=== PATIENT | female | born 2000 | race Caucasian/White ===

== ENCOUNTER 2025-02-28 13:49 | Inpatient (IN) | payer OTHER, SELFPAY ==
[2025-02-28] VITALS (11 sets, daily range): BP systolic 133–149; BP diastolic 93–107; PULSE 80–110; RESP 19–26; TEMP 36.4–36.9; O2SAT 96–100; BMI 21.7
--- NOTE | 2025-02-28 | ECG_ITS ---
Test Reason : REPEAT AFTER MED Blood Pressure : */* mmHG Vent. Rate : 89 BPM Atrial Rate : 89 BPM P-R Int : 114 ms QRS Dur : 68 ms QT Int : 402 ms P-R-T Axes : 31 44 8 degrees QTcB Int : 489 ms Normal sinus rhythm T wave abnormality, consider anterior ischemia Prolonged QT Abnormal ECG When compared with ECG of 28-Feb-2025 15:55, No significant change was found Referred By: Abby Arredondo Electronically Signed By: CORNELIA PALOMARES MD
--- NOTE | 2025-02-28 | ECG_ITS ---
Test Reason : LOW MAG Blood Pressure : */* mmHG Vent. Rate : 84 BPM Atrial Rate : 84 BPM P-R Int : 118 ms QRS Dur : 72 ms QT Int : 406 ms P-R-T Axes : 14 41 -17 degrees QTcB Int : 479 ms Normal sinus rhythm T wave abnormality, consider anterior ischemia Prolonged QT Abnormal ECG No previous ECGs available Referred By: Generic ED Physician Electronically Signed By: CORNELIA PALOMARES MD
--- NOTE | ~2025-02-28 | XR_ITS ---
CLINICAL HISTORY: Hypoxia Chest radiograph, 1 view Comparison: CT - CT ANGIO CHEST PE PROTOCOL - 03/02/25 05:53 EDT CR - XR CHEST 1V - 03/02/25 04:12 EDT Findings: The cardiomediastinal silhouette is not enlarged. Pulmonary vascularity is prominent. Bilateral airspace opacities. Slight elevation of the left hemidiaphragm. Mild blunting of the costophrenic angles. No pneumothorax. IMPRESSION: Worsened bilateral airspace disease and pulmonary vascular congestion with probable bilateral pleural effusions. This document has been electronically signed by: Chris Zamora DO on 03/04/2025 09:14:54
--- NOTE | ~2025-02-28 | XR_ITS ---
EXAMINATION: XR CHEST 1 VIEW HISTORY: Hypoxia F U COMPARISON: Comparison is made with prior examinations dated 03/04/2025. FINDINGS: A single AP portable view of the chest performed at 8:17 AM. is submitted. There are diffuse patchy airspace and groundglass opacities bilaterally which may represent pulmonary edema, diffuse pneumonia, or ARDS. There are probable tiny bilateral pleural effusions. There is no pneumothorax. The heart is normal in size. The bones are intact. XR/XR chest 1V IMPRESSION: Diffuse patchy bilateral airspace and groundglass opacities which may represent pulmonary edema, diffuse pneumonia, or ARDS. Electronically signed by: Hill Berman MD 03/06/2025 08:40 AM EDT
--- NOTE | ~2025-02-28 | US_ITS ---
EXAMINATION: US ABDOMEN LIMITED HISTORY: Transaminitis, R/O gallstones TECHNIQUE: Real-time grayscale ultrasound imaging of the gallbladder was performed and images were reviewed. COMPARISON: Correlation is made with a CT of the abdomen with contrast dated 02/28/2025. FINDINGS: No gallstones are identified. There is no wall thickening. There is a small amount of pericholecystic fluid. There is no sonographic Chao sign. The common bile duct is normal in caliber measuring 2 mm in diameter. US/US abdomen limited IMPRESSION: Small amount of pericholecystic fluid. No evidence of cholelithiasis or acute cholecystitis. Electronically signed by: Hill Berman MD 03/01/2025 02:06 PM EDT
--- NOTE | ~2025-02-28 | CT_ITS ---
CLINICAL HISTORY: suspect first ETOH pancreatitis, Lt sided pain CT abdomen and pelvis with contrast Comparison: None Findings: The lung bases are clear. There is diffuse fatty infiltration of the enlarged liver. The spleen is normal in size measuring 11 cm. Kidneys enhance symmetrically and there is no hydronephrosis. Adrenal glands and gallbladder are normal. There is diffuse hypoenhancement of the distal body and tail of the pancreas. Diffuse stranding around the tail of the pancreas is present and there is fluid within the left retroperitoneum extending from the level of the spleen to the mid pelvis. This fluid is low in attenuation. Pancreatic duct is not enlarged. The splenic vein and portal vein are patent. No bowel obstruction, pneumoperitoneum, or pneumatosis. Pelvic contents unremarkable. Normal appendix. Small volume ascites in the pelvis. No acute fracture. IMPRESSION: 1. Interstitial edematous pancreatitis with hypoenhancement of the tail of the pancreas. Recommend follow-up imaging to evaluate for development of necrotizing pancreatitis. 2. Extensive retroperitoneal fluid on the left, associated with pancreatitis. Trace ascites. 3. Hepatomegaly with diffuse fatty infiltration. This document has been electronically signed by: Christopher Almazan MD on 02/28/2025 19:13:16
--- NOTE | ~2025-02-28 | CT_ITS ---
CLINICAL HISTORY: Concern for necrotizing pancreatitis CT abdomen and pelvis with contrast Comparison: 02/28/2025 05:15 PM EDT: CT Findings: For the lower lung findings please refer to the same-day thoracic CT report. Zifc-zy-dxegonmv edematous left posterolateral chest wall changes. Hepatic steatosis. Acute pancreatitis with at least mildly progressive surrounding moderate inflammatory fat changes that involve the gastrosplenic ligament, neighboring right mesentery, as well as mildly surrounding portions of the duodenum. Focal short segmental avmt-dz-usqcluxs narrowing of the splenic vein in the vicinity of the inflammatory changes. Nonhomogeneous hypoenhancement /decreased attenuation of the distal pancreatic body and tail may be at least mildly more conspicuous than prior study and is due to edema +/-necrosis. Moderately progressive ubnytizd-jn-clybm ascites. Progressive gqil-tv-bokciayz bilateral retroperitoneal fluid. No evidence of discrete fluid collection/abscess. Distended gallbladder with partially dense sludge. No bowel obstruction, pneumoperitoneum, or pneumatosis. Appendix not seen and therefore could not be evaluated. Questionable mildly dense products in the right aspect of the urinary bladder. UA correlation recommended. The bones are intact. Rest of the abdominopelvic viscera are unremarkable. IMPRESSION: 1. Acute pancreatitis with at least mildly progressive surrounding moderate inflammatory fat changes. Focal short segmental cgnr-gx-dajjbwyk narrowing of the splenic vein in the vicinity of the inflammatory changes. Nonhomogeneous hypoenhancement /decreased attenuation of the distal pancreatic body and tail may be at least mildly more conspicuous than prior study and is due to edema +/-necrosis. Moderately progressive iplyswoz-hw-lazpd ascites. Progressive glqk-mn-pkugbcpa bilateral retroperitoneal fluid. 2. Questionable mildly dense products in the right aspect of the urinary bladder. UA correlation recommended. 3. Hepatic steatosis. This document has been electronically signed by: Britt Hutson MD on 03/02/2025 07:39:21
--- NOTE | ~2025-02-28 | XR_ITS ---
CLINICAL HISTORY: Persistent tachycardic 1 view chest x-ray Comparison: None Findings: Questionable pulmonary vascular congestion. Correlate clinically. Left pleural effusion. Normal size heart. No acute fracture. IMPRESSION: 1. Questionable pulmonary vascular congestion. Correlate clinically. 2. Left pleural effusion. This document has been electronically signed by: Britt Hutson MD on 03/02/2025 06:40:19
--- NOTE | ~2025-02-28 | CT_ITS ---
CLINICAL HISTORY: Persistent tachycardia, elevated D-dimer and tropo CT angiography chest with contrast. 3D Postprocessing. Comparison: None Findings: No definite evidence of PE on this partially motion limited exam. The thoracic aorta is normal caliber. The visualized thyroid and mediastinum are unremarkable. Small right and moderate left pleural effusions with neighboring atelectasis. Prominent/mildly enlarged left cardiac ventricle. For the upper abdominal findings please refer to same-day CT abdomen report. Mildly enlarged left cardiac ventricle. No acute fractures. IMPRESSION: 1. No definite evidence of PE on this partially motion limited exam. 2. Small right and moderate left pleural effusions with neighboring atelectasis. 3. Prominent/mildly enlarged left cardiac ventricle. This document has been electronically signed by: Britt Hutson MD on 03/02/2025 07:22:44
--- NOTE | 2025-02-28 13:50 | ED.ABDPAIN ---
HPI - Abdominal Pain General Chief Complaint: Abdominal Pain Stated Complaint: Severe abd pain Time Seen by Provider: 02/28/25 15:55 History of Present Illness ED Provider: Saman HERNANDEZ narrative: The patient is a 24-year-old female who says that she has a history of an eating disorder. She is on Zoloft. She says that she in her boyfriend has been drinking alcohol heavily for the last few weeks. The patient says this morning she woke up with abdominal pain, mostly on her left side, that was unusual and very unpleasant. The pain was associated with nausea and vomiting. She felt terrible and her boyfriend ultimately brought her to the hospital. She has never had an episode like this before. She has not been hospitalized for any recent recently. She has no history of any abdominal surgery. Related Data Home Medications ?Medication ?Instructions ?Recorded ?Confirmed acetaminophen 325 mg tablet 325 mg PO QID PRN Pain 02/28/25 02/28/25 sertraline 100 mg tablet 100 mg PO DAILY 02/28/25 02/28/25 sertraline 25 mg tablet 50 mg PO DAILY 02/28/25 02/28/25 Allergies Allergy/AdvReac Type Severity Reaction Status Date / Time No Known Allergies Allergy Verified 02/28/25 13:54 Review of Systems Review of Systems Yes all other systems are reviewed and are negative [facility] Past Medical History Medical History (Updated 02/28/25 @ 20:39 by RADHIKA Soni) Closed fracture of cuboid bones of both feet with routine healing Tobacco use Marijuana use Trauma in childhood Anxiety Depression Surgical History (Updated 02/28/25 @ 20:39 by RADHIKA Soni) H/O foot surgery Social History Social History (Updated 02/28/25 @ 20:43 by RADHIKA Soni) Alcohol intake: current Comment: For the last 2 weeks patient has been drinking 10 nips minimum per day of v Patient Tobacco Use Status: Current everyday Tobacco user Tobacco use type: Cigarette Smoked in Last 30 Days: No e-Cigarette/Vaping Use: Currently Using Use of substances other than those prescribed or required for medical reasons: No Substance Use Type: Marijuana Substance Use Frequency: Daily Advance Directives: No Advance Directives Information Provided: Yes Suicidal Behavior: Pre-occupation with Current/Past Psychiatric Disorders: Alcohol abuse and Chronic mental illess Garcia Symptoms: Anxiety Access to Firearms: No Do you have thoughts of harming others: None Do you have a plan to hurt others: No Plan How much weight loss: 24-33 pounds Eating poorly because of decreased appetite: Yes Nutrition Risks: Anorexia Patient : No (HCG negative) Poor oral hygiene: No service: No Current occupational status: employed 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 Physical Exam ED Vital Signs: Vital Signs - 24 hr 02/28/25 13:52 02/28/25 16:33 02/28/25 16:35 Temperature 97.6 F Pulse Rate 110 H 84 Respiratory Rate 20 25 H 25 H Blood Pressure 147/99 H 146/93 H Pulse Oximetry 100 100 Oxygen Delivery Method Room Air Room Air 02/28/25 17:30 02/28/25 18:09 02/28/25 19:06 Temperature 98.4 F 98.3 F Pulse Rate 102 H 86 Respiratory Rate 26 H 24 H 23 H Blood Pressure 145/99 H 145/97 H Pulse Oximetry 98 98 Oxygen Delivery Method Room Air Room Air 02/28/25 19:27 Temperature Pulse Rate 101 H Respiratory Rate 21 H Blood Pressure 142/104 H Pulse Oximetry 99 Oxygen Delivery Method Room Air BMI result Body Mass Index 21.7 Const Other: The patient is a thin 24-year-old who looks uncomfortable and somewhat unwell. HENMT Other: Face is symmetrical, mucous membranes slightly dry Eyes General: appearance normal, both eyes and all related structures Sclerae: sclerae normal Neck Neck: Yes full ROM Resp Effort & Inspection: normal respiratory effort Auscultation: clear to auscultation bilaterally Cardio Rate: tachycardic Rhythm: regular rhythm Heart sounds: S1 normal heart sound present and S2 normal heart sound present GI Other: The abdomen is soft but diffusely very tender. The patient grabbed my hand multiple times because of her tenderness. Skin Other: Skin is pale and dry Neuro Other: The patient is awake and alert with a normal mental status. Cranial nerves are grossly intact. She moves her extremities normally and appropriately. Mental status is clear Extrem General: Yes no pedal edema and Yes no calf tenderness Course Course Course Narrative: This is a Rapid Medical Exam performed in triage by Andreina Son PA-C. Full HPI, ROS and PE to be performed by primary ED provider. 24-year-old female w/PMHx Bulimia presenting to the ED c/o LLQ abd pain radiating to L flank since 6am with assoc N/V. +constipation, denies passing gas. denies hematuria/dysuria. PE: uncomfortable, in wheelchair, abdomen soft w/diffuse ttp. no rebound or guarding Plan: labs, UA, SARs Medical Decision Making Medical Decision Making MDM Narrative: The patient is a 24-year-old female with a history of depression and an eating disorder who was on Zoloft. She and her boyfriend have been drinking a lot of alcohol very heavily over the last few weeks. She woke up this morning with the abdominal pain, nausea, and vomiting. She has an elevated lipase. This seems to be a first-time episode of alcoholic pancreatitis. She was treated with IV fluids. Her lactate came back quite elevated at 7.4. My initial impression was that her elevated lactate was related to her pancreatitis, nausea, and vomiting. However when I reviewed the images of her CT scan (before a radiology read was available) I saw that there was a great deal of free fluid in the abdomen. At that point I felt that the possibility of an infectious process and possible sepsis had to be considered and so I ordered antibiotics and additional IV fluids at 30 mL/kilo at that point. This was at 17:47. The ultimate read of the CT scan indicates pancreatitis and the radiologist suspects of the free fluid is all secondary to the pancreatitis. This would make an infectious process less likely. In any event the patient was treated with morphine for her pain, droperidol for her nausea and will be admitted to the hospitalist service for ongoing care. She has remained hemodynamically stable. The patient's CT scan was ultimately read as consistent with pancreatitis. The free fluid in the abdomen was felt to be a consequence of pancreatitis. The patient remained tachycardic and hypertensive. I think she is exhibiting signs of alcohol withdrawal. In addition to treatment for her pain she will also be started on the phenobarbital protocol. She will be admitted to the hospitalist service. Lab Data 02/28/25 14:24 02/28/25 14:24 Labs: Lab Results 02/28/25 02/28/25 02/28/25 Range/Units 14:24 15:55 16:27 WBC 14.1 H (4.8-10.8) X10*3/uL RBC 3.75 L (4.20-5.50) X10*6/uL Hgb 14.1 (12.0-16.0) g/dl Hct 38.7 (37.0-47.0) % MCV 103.2 H (80.0-98.0) fL MCH 37.6 H (27.0-33.0) pg MCHC 36.4 H (31.0-35.0) g/dl RDW 13.9 (11.0-16.0) % Plt Count 194 (160-400) X10*3/uL MPV 9.8 (9.4-12.3) fL Immature Gran % (Auto) 0.4 (0.0-0.4) % Neut % (Auto) 89.5 H (45-73) % Lymph % (Auto) 5.6 L (20-40) % [facility] % (Auto) 4.1 (2-11) % Eos % (Auto) 0.1 (0-4) % Baso % (Auto) 0.3 (0-2) % Lymph # (Auto) 0.8 L (1.2-4.9) X10*3/uL [facility] # (Auto) 0.6 (0.1-1.2) X10*3/uL Eos # (Auto) 0.0 (0.0-0.4) X10*3/uL Baso # (Auto) 0.0 (0.0-0.2) X10*3/uL Abs Immat Gran (auto) 0.06 H (0.00-0.03) X10*3/uL Absolute Neuts (auto) 12.6 H (2.0-8.3) x10*3/uL Absolute Nucleated RBC 0.030 H (0.0-0.012) X10*3/uL Nucleated RBC % (auto) 0.2 (0.0-0.2) /100WBC Sodium 140 (135-145) mmol/L Potassium 3.4 (3.3-5.1) mmol/L Chloride 104 (96-108) mmol/L Carbon Dioxide 16 L (22-29) mmol/L Anion Gap 23 H (12-20) BUN 4 L (9-16) mg/dL Creatinine 0.46 L (0.5-1.4) mg/dL Estim Creat Clear Calc 143.5 Estimated GFR > 60 Random Glucose 177 H (60-115) mg/dL Lactic Acid 7.4 H* (0.5-2.0) mmol/L Lactic Acid F/U @ 2Hr (0.5-2.0) mmol/L Calcium 8.5 (8.4-10.2) mg/dL Magnesium 1.2 L* (1.6-2.6) mg/dL Total Bilirubin 0.8 (0.0-1.0) mg/dL Direct Bilirubin 0.4 (0.0-0.5) mg/dL AST 200 H (5-31) U/L ALT 92 H (0-31) U/L Alkaline Phosphatase 174 H (39-117) U/L C-Reactive Protein < 0.10 (< or = 0.50) mg/dL Total Protein 6.1 L (6.5-8.0) g/dL Albumin 3.4 L (3.5-5.0) g/dL Lipase 360 H (8-78) U/L Beta HCG, Quant < 2 mIU/mL Urine Color Urine Appearance Urine pH (5.0-9.0) Ur Specific [place] (1.005-1.025) Urine Protein (Neg-Trace) mg/dL Urine Glucose (UA) (Negative) mg/dL Urine Ketones (Negative) mg/dL Urine Blood (Negative) Urine Nitrite (Negative) Ur Leukocyte Esterase (Negative) Ethyl Alcohol < 10 mg/dL Influenza Type A (PCR) NEGATIVE (Negative) Influenza Type B (PCR) NEGATIVE (Negative) RSV RNA Qual (PCR) NEGATIVE (Negative) SARS-CoV-2 RNA (RT-PCR) NEGATIVE (Negative) 02/28/25 Range/Units 19:11 WBC (4.8-10.8) X10*3/uL RBC (4.20-5.50) X10*6/uL Hgb (12.0-16.0) g/dl Hct (37.0-47.0) % MCV (80.0-98.0) fL MCH (27.0-33.0) pg MCHC (31.0-35.0) g/dl RDW (11.0-16.0) % Plt Count (160-400) X10*3/uL MPV (9.4-12.3) fL Immature Gran % (Auto) (0.0-0.4) % Neut % (Auto) (45-73) % Lymph % (Auto) (20-40) % [facility] % (Auto) (2-11) % Eos % (Auto) (0-4) % Baso % (Auto) (0-2) % Lymph # (Auto) (1.2-4.9) X10*3/uL [facility] # (Auto) (0.1-1.2) X10*3/uL Eos # (Auto) (0.0-0.4) X10*3/uL Baso # (Auto) (0.0-0.2) X10*3/uL Abs Immat Gran (auto) (0.00-0.03) X10*3/uL Absolute Neuts (auto) (2.0-8.3) x10*3/uL Absolute Nucleated RBC (0.0-0.012) X10*3/uL Nucleated RBC % (auto) (0.0-0.2) /100WBC Sodium (135-145) mmol/L Potassium (3.3-5.1) mmol/L Chloride (96-108) mmol/L Carbon Dioxide (22-29) mmol/L Anion Gap (12-20) BUN (9-16) mg/dL Creatinine (0.5-1.4) mg/dL Estim Creat Clear Calc Estimated GFR Random Glucose (60-115) mg/dL Lactic Acid (0.5-2.0) mmol/L Lactic Acid F/U @ 2Hr 5.9 H* (0.5-2.0) mmol/L Calcium (8.4-10.2) mg/dL Magnesium (1.6-2.6) mg/dL Total Bilirubin (0.0-1.0) mg/dL Direct Bilirubin (0.0-0.5) mg/dL AST (5-31) U/L ALT (0-31) U/L Alkaline Phosphatase (39-117) U/L C-Reactive Protein (< or = 0.50) mg/dL Total Protein (6.5-8.0) g/dL Albumin (3.5-5.0) g/dL Lipase (8-78) U/L Beta HCG, Quant mIU/mL Urine Color Yellow Urine Appearance Clear Urine pH 5.5 (5.0-9.0) Ur Specific [place] >= 1.030 H (1.005-1.025) Urine Protein Trace (Neg-Trace) mg/dL Urine Glucose (UA) Negative (Negative) mg/dL Urine Ketones Negative (Negative) mg/dL Urine Blood Negative (Negative) Urine Nitrite Negative (Negative) Ur Leukocyte Esterase Negative (Negative) Ethyl Alcohol mg/dL Influenza Type A (PCR) (Negative) Influenza Type B (PCR) (Negative) RSV RNA Qual (PCR) (Negative) SARS-CoV-2 RNA (RT-PCR) (Negative) Independent Interpretation I performed an independent interpretation of an: EKG Interpretation: EKG at 15:55 shows normal sinus rhythm at 84 beats per minute. There are T-wave inversions anteriorly. There is a QTC interval of 479. Medications Administered Generic Name Dose Route Start Last Admin Trade Name Freq PRN Reason Stop Dose Admin Hydromorphone HCl 0.5 mg 02/28/25 19:52 02/28/25 20:32 Hydromorphone Hcl 0.5 Mg/0.5 Ml Syringe IVPUSH 0.5 mg Q4H PRN Administration Pain, Severe (Pain Scale 7-10) Protocol Thiamine HCl 100 mg/ Sodium 101 mls @ 202 mls/hr 02/28/25 19:50 02/28/25 20:31 Chloride IV 202 mls/hr DAILY ROCKY Administration Sodium Chloride 1,000 mls @ 125 mls/hr 02/28/25 20:00 02/28/25 20:33 Ns IVCONT 125 mls/hr .Q8H ROCKY Administration Pantoprazole Sodium 40 mg 02/28/25 19:45 02/28/25 20:31 Pantoprazole Sodium 40 Mg/10 Ml Vial IVPUSH 40 mg DAILY@0630 ROCKY Administration Discontinued Medications Generic Name Dose Route Start Last Admin Trade Name Freq PRN Reason Stop Dose Admin Droperidol 0.625 mg 02/28/25 16:05 02/28/25 16:35 Droperidol 5 Mg/2 Ml Vial IVPUSH 02/28/25 16:06 0.625 mg ONCE ONE Administration Magnesium Sulfate 2 gm in 50 mls @ 25 mls/hr 02/28/25 15:54 02/28/25 18:37 Magnesium Sulfate/H2o IV 02/28/25 17:53 Infused ONCE ONE Infusion Lactated Ringer's 1,000 mls @ 999 mls/hr 02/28/25 16:00 02/28/25 17:58 Lr IV 02/28/25 17:00 Infused .Q1H1M ROCKY Infusion Piperacillin Sod/Tazobactam 100 mls @ 200 mls/hr 02/28/25 17:47 02/28/25 18:37 Sod 4.5 gm/ Sodium Chloride IV 02/28/25 18:16 Infused ONCE ONE Infusion Sodium Chloride 1,564.89 mls @ 1,564.89 mls/hr 02/28/25 17:47 02/28/25 19:27 Ns 30 ml/kg infuse over 1 hr (1564.89 ml) 02/28/25 18:46 Infused IV Infusion .Q1H STA Sodium Chloride 250 mls @ 999 mls/hr 02/28/25 20:15 02/28/25 20:33 Ns IV 02/28/25 20:30 999 mls/hr .Q16M ROCKY Administration Iohexol 85 ml 02/28/25 17:24 02/28/25 17:24 Iohexol 350 Mg/Ml 100 Ml Infus..Btl IV 02/28/25 17:25 85 ml ONCE ONE Administration Morphine Sulfate 4 mg 02/28/25 16:05 02/28/25 16:35 Morphine Sulfate 4 Mg/Ml Cartridge IVPUSH 02/28/25 16:06 4 mg ONCE ONE Administration Protocol Morphine Sulfate 8 mg 02/28/25 17:06 02/28/25 17:30 Morphine Sulfate 10 Mg/Ml Cartridge IVPUSH 02/28/25 17:07 8 mg ONCE ONE Administration Protocol Morphine Sulfate 8 mg 02/28/25 18:59 02/28/25 19:15 Morphine Sulfate 10 Mg/Ml Cartridge IVPUSH 02/28/25 19:00 8 mg ONCE ONE Administration Protocol Phenobarbital Sodium 191 mg 02/28/25 20:00 02/28/25 20:31 Phenobarbital Sodium 130 Mg/Ml Im Once IM 02/28/25 20:01 191 mg ONCE ONE Administration Critical Care Time Critical Care Time Critical Care Time: Yes Total Critical Care Time: 35 Attestation: The patient was critically ill with a high probability of imminent or life-threatening deterioration. ?I spent greater than 30 minutes of discontinuous time evaluating the patient, delivering critical care at the bedside, discussing evaluating data with consultants. ?Critical care time does not include time spent performing separately billable procedures or teaching. ?Time spent performing critical care with 35 minutes. Discharge Plan Discharge Clinical Impression: Acute alcoholic pancreatitis, Hypomagnesemia, Alcohol withdrawal Patient Disposition: Admitted As Inpatient
[2025-02-28 14:27] LABS: MANUAL DIFF FLAG NO
[2025-02-28 14:53] LABS: Alanine Aminotransferase 92 U/L (0-31); Albumin Level 3.4 g/dL (3.5-5.0); Alkaline Phosphatase 174 U/L (39-117); Anion Gap 23 (12-20); Aspartate Amino Transferase 200 U/L (5-31); Bilirubin Direct 0.4 mg/dL (0.0-0.5); Bilirubin Total 0.8 mg/dL (0.0-1.0); Blood Urea Nitrogen 4 mg/dL (9-16); Calcium 8.5 mg/dL (8.4-10.2); Carbon Dioxide 16 mmol/L (22-29); Chloride 104 mmol/L (96-108); Creatinine Clr Calc Pharmacy 143.5; Estimated Glomerular Filt Rate > 60; Glucose Random 177 mg/dL (60-115); HCG Quantitative < 2 mIU/mL; Magnesium 1.2 mg/dL (1.6-2.6); Potassium 3.4 mmol/L (3.3-5.1); Sodium 140 mmol/L (135-145); Total Protein 6.1 g/dL (6.5-8.0)
[2025-02-28 15:00] LABS: Basophils Percent Auto 0.3 % (0-2); Eosinophils Percent Auto 0.1 % (0-4); Hematocrit 38.7 % (37.0-47.0); Hemoglobin 14.1 g/dl (12.0-16.0); Imm Gran Abs Auto 0.06 X10*3/uL (0.00-0.03); Imm Gran Pct Auto 0.4 % (0.0-0.4); Lymphocytes Absolute Auto 0.8 X10*3/uL (1.2-4.9); Lymphocytes Percent Auto 5.6 % (20-40); Mean Corpuscular HGB Conc 36.4 g/dl (31.0-35.0); Mean Corpuscular Hemoglobin 37.6 pg (27.0-33.0); Mean Corpuscular Volume 103.2 fL (80.0-98.0); Mean Platelet Volume 9.8 fL (9.4-12.3); Monocytes Absolute Auto 0.6 X10*3/uL (0.1-1.2); Monocytes Percent Auto 4.1 % (2-11); NRBC Pct Auto 0.2 /100WBC (0.0-0.2); Neutrophils Absolute Auto 12.6 x10*3/uL (2.0-8.3); Neutrophils Percent Auto 89.5 % (45-73); Platelet Count 194 X10*3/uL (160-400); Red Blood Count 3.75 X10*6/uL (4.20-5.50); Red Cell Distribution Width 13.9 % (11.0-16.0); White Blood Count 14.1 X10*3/uL (4.8-10.8)
[2025-02-28 15:04] LABS: Lipase 360 U/L (8-78)
[2025-02-28 15:14] LABS: Influenza A PCR NEGATIVE (Negative); Influenza B PCR NEGATIVE (Negative); Resp Syncy Virus RNA Qual PCR NEGATIVE (Negative); SARS COV2 PCR INHOUSE NEGATIVE (Negative)
--- NOTE | 2025-02-28 15:57 | PC.NURSE ---
Pt comes from home for n/v and abdominal pain x1 day. Per pt, LLQ abdominal pain/bilateral flank pain, denies urinary s/s, endorsing recent constipation. Per pt and significant other, pt is a daily drinker of vodka, last drink approx 0200am today. Denies hx of ETOH withdrawal symptoms/withdrawal seizures. Pt a/ox3, speaking in full sentences, respirations even and unlabored, no increased wob/sob noted, maintaining O2 sat >92% on RA, denies cp/palpitations. Placed on phototypesetting equipment monitor and continuous O2 probe to monitor- nsr on phototypesetting equipment monitor. 20g IV placed Left AC, ekg and labs obtained and sent to lab.
[2025-02-28 16:11] LABS: Ethanol < 10 mg/dL
--- NOTE | 2025-02-28 16:31 | PC.NURSE ---
[facility] [place] # [phone]
[2025-02-28] MEDS: Magnesium Sulfate/H2O 2 GM/50 ML PIGGYBACK IV (16:34)
[2025-02-28] MEDS: Lactated Ringers 1,000 ML 999 ML IV (16:34)
[2025-02-28] MEDS: droPERidol 5 MG/2 ML VIAL 0.625 MG IVPUSH (16:35)
[2025-02-28] MEDS: Morphine Sulfate 4 MG/ML CARTRIDGE IVPUSH (16:35)
[2025-02-28 16:54] LABS: Lactic Acid 7.4 mmol/L (0.5-2.0)
[2025-02-28] MEDS: iohexoL 350 MG/ML 100 ML INFUS..BTL 85 ML IV (17:24)
[2025-02-28] MEDS: Morphine Sulfate 10 MG/ML CARTRIDGE 8 MG IVPUSH ×2 (17:30→19:15)
[2025-02-28] MEDS: Piperacillin Sodium/Tazobactam 4.5 GM in 0.9 % Sodium Chloride 100 ML IV (17:57)
[2025-02-28] MEDS: 0.9 % Sodium Chloride 1,564.89 ML 1564.89 ML IV (18:02)
[2025-02-28 18:32] LABS: Reflex Lactate? Lactic Acid Added
[2025-02-28 19:18] LABS: Appearance Urine Clear; Color Urine Yellow; Glucose Urine UA Negative (Negative); Leukocyte Esterase Urine Negative (Negative); Nitrite Urine Negative (Negative); PH 5.5 (5.0-9.0); Specific Gravity - Urine >= 1.030 (1.005-1.025); Urine Blood Negative (Negative); Urine Ketones Negative (Negative); Urine Protein Trace mg/dL (Neg-Trace)
[2025-02-28 19:32] LABS: ~Lactic Acid-LAB USE ONLY 5.9 mmol/L (0.5-2.0)
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
[2025-02-28 20:19] LABS: C Reactive Protein < 0.10 mg/dL (< or = 0.50)
[2025-02-28] MEDS: Pantoprazole Sodium 40 MG/10 ML VIAL IVPUSH (20:31)
[2025-02-28] MEDS: Thiamine HCL 100 MG in 0.9 % Sodium Chloride 100 ML 202 MG IV (20:31)
[2025-02-28] MEDS: PHENobarbitaL sodium 130 MG/ML IM ONCE 191 MG IM (20:31)
[2025-02-28] MEDS: HYDROmorphone HCl 0.5 MG/0.5 ML SYRINGE IVPUSH (20:32)
[2025-02-28] MEDS: 0.9 % Sodium Chloride 250 ML 999 ML IV (20:33)
[2025-02-28] MEDS: 0.9 % Sodium Chloride 1,000 ML 125 ML IVCONT (20:33)
--- NOTE | 2025-02-28 20:40 | PHA.MEDREC ---
Addendum entered by [facility] 02/28/25 20:49: med rec reviewed Original Note: Pharmacy Consult ? Medication Reconciliation Pharmacy has completed the medication reconciliation. Spoke with pt who was able to confirm her medications. Pt confirmed she takes the Sertraline 100mg tab once daily and Sertraline 25mg tabs stating she takes 2 25mg tabs with the 100mg tab for a TDD of 150mg. The pt states her Dr is aware of her taking the Sertraline this way but has continued to write the directions for the 25mg tabs QD and never wrote for the increase dose.
[2025-02-28 21:15] LABS: Reflex Lactate? 2 Y
[2025-02-28] MEDS: cefEPime HCl/D5W 2 GM/50 ML PIGGYBACK IV (21:51)
[2025-02-28] MEDS: Folic Acid 1 MG in 0.9 % Sodium Chloride 50 ML 100.4 MG IV (21:54)
--- NOTE | 2025-02-28 22:13 | PHA.PROG ---
Admission Date/Time: February 28, 2025 19:31 Indication: INTRA-ABDOMINAL Weight in k.163 kg Adjusted body weight in Kg: [place] body weight in Kg: Obesity Dosing Indication % IBW: Serum Creatinine - Last 168 Hours 02/28/25 14:24 Creatinine 0.46 L Estimated CrCl and GFR - Last 168 Hours 02/28/25 14:24 Estim Creat Clear Calc 143.5 Estimated GFR > 60 Vancomycin Loading Dose: 1250 MG Current Vancomycin Dosing Regimen: 1250 MG Vancomycin Monitoring using AUC goal of 400 - 600 range with trough as surrogate marker: SIM=000 TROUGH=11.6 Date and Time for next Vancomycin Level to be drawn: 03/01/25 @2100 Pharmacist Comments on Vancomycin Plan: Vancomycin dosing will take advantage of [employer] as a clinical decision support tool that uses Bayesian modeling to calculate individual patient's pharmacokinetic parameters and forecast the patient's drug concentration time course with the target goal AUC 24 range of 400 - 600 mg/L/hr.
[2025-02-28 22:22] LABS: ~Lactic Acid-LAB USE ONLY 4.2 mmol/L (0.5-2.0)
[2025-02-28] MEDS: vancomycin HCL 1,250 MG in 0.9 % Sodium Chloride 250 ML 166.67 MG IV (22:37)
[2025-02-28] MEDS: PHENobarbitaL sodium 130 MG/ML VIAL IM Q3Hx2 143 MG IM (23:27)
[2025-03-01] VITALS (7 sets, daily range): BP systolic 112–1117; BP diastolic 78–100; PULSE 80–127; RESP 16–201; TEMP 36.3–36.8; O2SAT 96–98; BMI 22.9
[2025-03-01] MEDS: HYDROmorphone HCl 0.5 MG/0.5 ML SYRINGE IVPUSH ×4 (02:11→15:49)
[2025-03-01] MEDS: PHENobarbitaL sodium 130 MG/ML VIAL IM Q3Hx2 143 MG IM (03:37)
[2025-03-01] MEDS: 0.9 % Sodium Chloride 1,000 ML 125 ML IVCONT ×3 (03:38→18:37)
[2025-03-01] MEDS: cefEPime HCl/D5W 2 GM/50 ML PIGGYBACK IV ×3 (03:41→19:49)
[2025-03-01] MEDS: Pantoprazole Sodium 40 MG/10 ML VIAL IVPUSH (06:12)
[2025-03-01 07:07] LABS: MANUAL DIFF FLAG NO
[2025-03-01 07:30] LABS: Basophils Percent Auto 0.2 % (0-2); Hematocrit 38.7 % (37.0-47.0); Hemoglobin 13.7 g/dl (12.0-16.0); Imm Gran Abs Auto 0.05 X10*3/uL (0.00-0.03); Imm Gran Pct Auto 0.5 % (0.0-0.4); Lymphocytes Absolute Auto 0.9 X10*3/uL (1.2-4.9); Lymphocytes Percent Auto 8.9 % (20-40); Mean Corpuscular HGB Conc 35.4 g/dl (31.0-35.0); Mean Corpuscular Hemoglobin 38.4 pg (27.0-33.0); Mean Corpuscular Volume 108.4 fL (80.0-98.0); Mean Platelet Volume 10.5 fL (9.4-12.3); Monocytes Absolute Auto 0.6 X10*3/uL (0.1-1.2); Monocytes Percent Auto 6.3 % (2-11); Neutrophils Absolute Auto 8.2 x10*3/uL (2.0-8.3); Neutrophils Percent Auto 84.1 % (45-73); Red Blood Count 3.57 X10*6/uL (4.20-5.50); Red Cell Distribution Width 14.1 % (11.0-16.0); White Blood Count 9.7 X10*3/uL (4.8-10.8)
[2025-03-01 07:32] LABS: Lipase 172 U/L (8-78); Magnesium 1.8 mg/dL (1.6-2.6)
[2025-03-01 07:33] LABS: Platelet Count 139 X10*3/uL (160-400)
[2025-03-01] MEDS: Thiamine HCL 100 MG in 0.9 % Sodium Chloride 100 ML 202 MG IV (08:01)
[2025-03-01] MEDS: Sertraline HCL 50 MG TABLET PO (08:02)
[2025-03-01] MEDS: Sertraline HCL 100 MG TABLET PO (08:02)
[2025-03-01] MEDS: 0.9 % Sodium Chloride Flush 3 ML SYRINGE IVFLUSH (08:02)
[2025-03-01] MEDS: PHENobarbitaL 30 MG TABLET PO ×2 (08:02→19:49)
[2025-03-01] MEDS: Folic Acid 1 MG in 0.9 % Sodium Chloride 50 ML 100.4 MG IV (08:02)
[2025-03-01 08:17] LABS: Alanine Aminotransferase 55 U/L (0-31); Albumin Level 2.6 g/dL (3.5-5.0); Alkaline Phosphatase 128 U/L (39-117); Anion Gap 12 (12-20); Aspartate Amino Transferase 145 U/L (5-31); Blood Urea Nitrogen 3 mg/dL (9-16); Calcium 7.7 mg/dL (8.4-10.2); Chloride 114 mmol/L (96-108); Creatinine Clr Calc Pharmacy 140.4; Estimated Glomerular Filt Rate > 60; Glucose Random 130 mg/dL (60-115); Magnesium 1.8 mg/dL (1.6-2.6); Potassium 3.7 mmol/L (3.3-5.1); Sodium 143 mmol/L (135-145); Total Protein 4.9 g/dL (6.5-8.0)
[2025-03-01 08:26] LABS: Carbon Dioxide 20 mmol/L (22-29)
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
[2025-03-01] MEDS: vancomycin HCL 1,250 MG in 0.9 % Sodium Chloride 250 ML 166.67 MG IV (10:55)
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
[2025-03-01] MEDS: Calcium Gluconate/NaCl,Iso-Osm 2 GM/100 ML PLAST..BAG IV (13:37)
--- NOTE | 2025-03-01 14:23 | MHC.CLN ---
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
[2025-03-01 14:47] LABS: Parathyroid Hormone Intact 110.8 pg/mL (8.7-77.1)
--- NOTE | 2025-03-01 15:16 | MHC.CM.PN ---
Addendum entered by Albina Hidalgo 03/01/25 15:28: PCP verified: [facility] MANAGER, Jenny Workman. Original Note: Pt lethargic but able to answer questions, pt self-care, lives at home alone, she states her boyfriend will transport her home at discharge. Pt states she doesn't have a HCP, but would like to complete one when she is feeling more up to it. Pt states she has a PCP, but doesn't know their name, they are from [facility].
[2025-03-01] MEDS: HYDROmorphone HCl 0.5 MG/0.5 ML SYRINGE 1 MG IVPUSH (19:48)
[2025-03-01 21:28] LABS: Vancomycin Random 8.5 mcg/mL (15-20)
--- NOTE | 2025-03-01 21:54 | HE.PHANOTE ---
RE: VANCO DOSING Trough came back as 8.5 mg/L. Dose is increased to 1000 mg q8h, next trough is scheduled for 03/02/25 @1300.
[2025-03-01] MEDS: Lactated Ringers 1,000 ML 999 ML IV ×2 (22:32→23:51)
[2025-03-01] MEDS: HYDROmorphone HCl 1 MG/ML SYRINGE IVPUSH (23:51)
[2025-03-02] VITALS (9 sets, daily range): BP systolic 100–117; BP diastolic 59–88; PULSE 115–128; RESP 14–18; TEMP 36.3–37.1; O2SAT 90–96
--- NOTE | 2025-03-02 | ECG_ITS ---
Test Reason : tachycardia Blood Pressure : */* mmHG Vent. Rate : 131 BPM Atrial Rate : 131 BPM P-R Int : 130 ms QRS Dur : 74 ms QT Int : 334 ms P-R-T Axes : 44 38 44 degrees QTcB Int : 493 ms Sinus tachycardia Low voltage QRS Septal infarct , age undetermined Abnormal ECG No previous ECGs available Referred By: Almas Middleton Electronically Signed By: CORNELIA PALOMARES MD
[2025-03-02] MEDS: vancomycin HCL 1,000 MG in 0.9 % Sodium Chloride 250 ML 270 MG IV ×3 (00:06→15:23)
[2025-03-02] MEDS: 0.9 % Sodium Chloride 1,000 ML 125 ML IVCONT (02:06)
[2025-03-02] MEDS: Metoprolol Tartrate 5 MG/5 ML VIAL 2.5 MG IVPUSH ×2 (02:47→06:31)
[2025-03-02] MEDS: Lactated Ringers 1,000 ML 150 ML IVCONT (02:48)
[2025-03-02] MEDS: diazePAM 10 MG/2 ML CARTRIDGE 5 MG IVPUSH ×2 (02:51→11:05)
[2025-03-02 03:11] LABS: Amphetamine Screen Urine Not Detected (Not Detect); Barbiturates, Urine Not Detected (Not Detect); Benzodiazepines Screen Urine Not Detected (Not Detect); Buprenorphine Scr Not Detected (Not Detect); Cannabinoid Screen Urine POSITIVE (Not Detect); Cocaine Screen Urine Not Detected (Not Detect); Fentanyl, urine Not Detected (Not Detect); Methadone Screen, Urine Not Detected (Not Detect); Opiate Screen Urine POSITIVE (Not Detect); Oxycodone Screen Urine Not Detected (Not Detect); Phencyclidine Screen Urine Not Detected (Not Detect)
[2025-03-02] MEDS: cefEPime HCl/D5W 2 GM/50 ML PIGGYBACK IV ×3 (03:56→20:43)
[2025-03-02] MEDS: HYDROmorphone HCl 1 MG/ML SYRINGE IVPUSH ×3 (03:56→15:15)
[2025-03-02 04:02] LABS: MANUAL DIFF FLAG NO
[2025-03-02 04:03] LABS: Basophils Percent Auto 0.4 % (0-2); Eosinophils Percent Auto 0.2 % (0-4); Hematocrit 32.2 % (37.0-47.0); Hemoglobin 11.6 g/dl (12.0-16.0); Imm Gran Abs Auto 0.05 X10*3/uL (0.00-0.03); Imm Gran Pct Auto 0.6 % (0.0-0.4); Lymphocytes Absolute Auto 1.4 X10*3/uL (1.2-4.9); Lymphocytes Percent Auto 17.2 % (20-40); Mean Corpuscular Volume 105.6 fL (80.0-98.0); Mean Platelet Volume 10.8 fL (9.4-12.3); Monocytes Absolute Auto 0.6 X10*3/uL (0.1-1.2); Monocytes Percent Auto 7.7 % (2-11); Neutrophils Absolute Auto 6.1 x10*3/uL (2.0-8.3); Neutrophils Percent Auto 73.9 % (45-73); Platelet Count 106 X10*3/uL (160-400); Red Blood Count 3.05 X10*6/uL (4.20-5.50); Red Cell Distribution Width 14.1 % (11.0-16.0); White Blood Count 8.3 X10*3/uL (4.8-10.8)
[2025-03-02 04:11] LABS: D Dimer High Sensitivity 1698 NG/ML
[2025-03-02 04:20] LABS: Lactic Acid 1.4 mmol/L (0.5-2.0)
[2025-03-02 04:28] LABS: Alanine Aminotransferase 32 U/L (0-31); Albumin Level 2.1 g/dL (3.5-5.0); Anion Gap 9 (12-20); Aspartate Amino Transferase 90 U/L (5-31); Bilirubin Direct 0.6 mg/dL (0.0-0.5); Bilirubin Total 1.1 mg/dL (0.0-1.0); Blood Urea Nitrogen < 3 mg/dL (9-16); Calcium 7.7 mg/dL (8.4-10.2); Carbon Dioxide 24 mmol/L (22-29); Chloride 106 mmol/L (96-108); Creatinine Clr Calc Pharmacy 194.1; Estimated Glomerular Filt Rate > 60; Glucose Random 106 mg/dL (60-115); Magnesium 1.4 mg/dL (1.6-2.6); Phosphorus 2.3 mg/dL (2.7-4.5); Potassium 3.3 mmol/L (3.3-5.1); Sodium 136 mmol/L (135-145); Total Protein 4.2 g/dL (6.5-8.0)
[2025-03-02 04:29] LABS: Troponin-I High Sensitivity 1963.5 ng/L (<3.5-17.0)
[2025-03-02 04:34] LABS: Alkaline Phosphatase 107 U/L (39-117)
[2025-03-02 04:56] LABS: Thyroid Stimulating Hormone 1.49 uIU/mL (0.32-4.0)
--- NOTE | 2025-03-02 05:00 | PM.EVENT ---
Event Note Date of Service: 03/02/25 Event Note: I have been contacted in multiple occasions to notify patient's HR has been marked elevated 120-130 bpm (up to 160 with ambulation). Other VS showed hypotension or fever. She received a total of 2L of NS bolus, metoprolol IV and Valium without significant improvement. Subsequently stat labs were obtained significant for elevated troponin 1,963.5 and elevated d-dimer. CXR showed no cardiomegaly, pleural effusions or pneumothorax. ECG showed sinus tachycardia and low voltage. Initial ECG noted to have T-wave inversions in the anterior and inferior leads. Lovenox 50 mg SQ ordered. Will obtain stat chest CTA to assess for PE as well as abdominal pelvis CT scan with IV contrast to assess for necrotizing pancreatitis. Treatment with vitamin D2 has been ordered due to vitamin D deficiency and magnesium sulfate was ordered for hypomagnesemia. TSH is normal. Cardiology consult quantity have been requested. Time Spent With Patient Time: Total time managing care of this patient today ____ minutes.
[2025-03-02 05:51] LABS: Vitamin B12 476 pg/mL (200-900)
[2025-03-02] MEDS: iohexoL 350 MG/ML 100 ML INFUS..BTL 65 ML IV (06:05)
[2025-03-02] MEDS: Enoxaparin Sodium 60 MG/0.6 ML SYRINGE 50 MG SUBCUT (06:21)
[2025-03-02] MEDS: Magnesium Sulfate/H2O 2 GM/50 ML PIGGYBACK IV (06:23)
[2025-03-02] MEDS: Pantoprazole Sodium 40 MG/10 ML VIAL IVPUSH (06:31)
--- NOTE | 2025-03-02 07:00 | CA_ITS ---
Transthoracic Echocardiogram Patient (Last, First, Middle): Magnolia Melgoza E Gender: Female Date of : 2000 Age: 24 Procedure Date: 03/02/2025 Procedure Type: Transthoracic Echocardiogram Location: [facility] [place] Height: 154.94 cm Weight: 54.89 kg BSA: 1.53 m2 Heart Rate: 128 bpm BP: 109 / 67 mmHg Mysql Database Developer: SB Referring MD: Almas Middleton MD Lease Picker: Tyler Ludwig MD Symptoms: Persistent tachycardia, Elevated troponnins Study Quality: Adequate w contrast ECG Rhythm: Tachycardia Conclusions: - 1. [id number] LV systolic dysfunction with wall motion abnormalities suggestive of reverse stress-induced cardiomyopathy 2. Cardiac valvular Dopplers within normal limits 3. No gross pericardial effusion Findings Procedure Information Contrast agent, definity, is being given per protocol without apparent complications. Left Ventricle Normal left ventricular cavity size. There is normal left ventricular wall thickness. The left ventricular systolic function is mild to moderately decreased. The visually estimated ejection fraction is between 40-45%. Spectral Doppler is indicative of an impaired relaxation filling pattern. there is leak in his to self all basal segments and hypokinesis of mid segments, overall findings suggestive of reverse stress-induced cardiomyopathy Wall Motion Rest Echo Findings The mid anterior, mid inferior, mid anterolateral, mid inferoseptal, mid anteroseptal, and mid inferolateral segments are hypokinetic. The basal inferior, basal anterior, basal anterolateral, basal inferoseptal, basal anteroseptal, and basal inferolateral segments are akinetic. All other scored wall segments showed normal motion. Atria Both atria are normal in size. There is no evidence of interatrial shunt. Aortic Valve Normal aortic valve structure and function. There is no aortic valve stenosis. There is no aortic valve regurgitation. Mitral Valve Normal mitral valve structure and function. There is trace mitral valve regurgitation. There is no mitral valve stenosis. Pulmonic Valve The pulmonic valve was not well visualized. Tricuspid Valve Likely normal tricuspid valve structure and function. Tricuspid regurgitation envelope is inadequate for calculation of right ventricular systolic pressure. Great Vessels All visible segments of the aorta are normal in size. The pulmonary artery was not well visualized. There is no dilatation of the ascending aorta measuring 2.30 cm. Venous The inferior vena cava is normal in size and collapses greater than 50% with inspiration. Pericardium/Pleural There is no evidence of pericardial effusion. Prior Study Comparison No prior study available for comparison. Measurements 2D Linear Measurements IVSd: 0.76 0.6-0.9/0.6-1.0 cm LVIDd: 5.06 3.9-5.3/4.2-5.9 cm LVIDd Index: 3.31 2.4-3.2/2.2-3.1 cm/m2 LVIDs: 4.90 2.0-3.6 cm LVPWd: 0.63 0.7-1.1 cm LA Diam: 2.60 2.7-3.8/3.0-4.0 cm LAIDs Index: 1.70 1.5-2.3 cm/m2 LV Mass: 143.68 67-162/88-224 g LV Mass Index: 93.91 43-95/49-115 g/m2 LVOT Diam: 2.20 3.0+(-)1.3 cm 2D Systolic Function EF 4C: 32.60 >55% EF 2C: 48.10 >55% EF BiP: 42.40 >55% Mitral Valve MV Pk E: 0.49 MV PK A: 0.85 E/A: 0.60 E'Lateral: 7.62 E/E' Lat: 6.40 Aortic Valve AoV Pk Tu: 0.86 AoV Pk Grad: 3.00 JACQUES: 3.25 LVOT LVOT Pk Tu: 0.74 LVOT Mn Tu: 0.52 LVOT VTI: 0.10 LVOT Pk Grad: 2.00 LVOT Mn Grad: 1.00 LVOT Diam: 2.20 LVOT Area: 3.80 Diastolic Function MV Pk E: 0.49 MV Pk A: 0.85 E/A: 0.60 E' Laterial: 7.62 E/E' Lat: 6.40 Right Ventricle TAPSE (mm): 16.70 TVS' Tu: 14.80 Great Vessels Aorta Sinus of Valsalva: 2.70 2.0-3.5 cm Ao Asc: 2.30 2.1-3.4 cm Ao Arch: 2.30 Ao Desc: 1.30 Pulmonary Valve PV Pk Tu: 0.92 Peak PV Grad: 3.00 Updated in Other Vendor System with Status of Final Tyler Ludwig MD electronically signed on 03/02/2025 1:05:13 PM with status of Final
[2025-03-02] MEDS: PHENobarbitaL 30 MG TABLET PO ×2 (09:15→20:43)
[2025-03-02] MEDS: guaiFENesin LA 600 MG TAB.ER.12H PO ×2 (09:15→20:43)
[2025-03-02] MEDS: Ergocalciferol (Vitamin D2) 1,250 MCG CAPSULE 1250 MCG PO (09:15)
[2025-03-02] MEDS: Sertraline HCL 100 MG TABLET PO (09:15)
[2025-03-02] MEDS: Sertraline HCL 50 MG TABLET PO (09:15)
[2025-03-02 10:17] LABS: Troponin-I High Sensitivity 1871.2 ng/L (<3.5-17.0)
--- NOTE | 2025-03-02 10:27 | P.CONCA_ITS ---
History of Present Illness History of Present Illness Date of Service: 03/02/25 Requesting physician: Dalia Banks Consult reason: shortness of breath and troponin elevation Chief complaint: Severe abd pain Narrative: I was consulted to see Magnolia in cardiology consultation today for persistent sinus tachycardia and elevated troponins. She is a 24-year-old female with prior history of anorexia nervosa, alcohol use, marijuana use. Patient says over the last few weeks to a month she has been drinking a lot of alcohol because of increased stress after grandmother past and she came to the hospital and was noted to have significant pancreatitis with necrotizing pancreatitis. She was noted to have sinus tachycardia which is expected she has been also significantly acidotic as well as having significant hypomagnesemia. She was then treated with IV fluids however remain persistently tachycardic. Last side heart rate went up to 160 beats per minute. She was noted to have elevated troponins yesterday. No overt signs of heart failure. She says she feels short of breath when she takes a deep breath she also complains of bandlike discomfort in the abdomen. Her fluids have been withheld. Her troponins went up to 1900 and this morning trending down to 1800. She denies any chest pain. She has never had any cardiac issues in the past. She denies any palpitations. Denies any lightheadedness, syncope. Blood pressure is soft. Review of Systems 2 Constitutional: Constitutional: Denies fatigue, Reports malaise and Reports weakness Eyes: Eyes: Denies no additional eye complaints Cardiovascular: Cardiovascular: Denies chest pain, Denies rapid heart rate, Denies leg edema, Denies lightheadedness, Denies Loss of Consciousness and Reports dyspnea Respiratory: Respiratory: Denies cough and Reports dyspnea Gastrointestinal: Gastrointestinal: Reports abdominal pain Genitourinary: Genitourinary: Reports no additional female genitourinary complaints Integumentary/Breasts: Skin/Breast: Reports system reviewed and no additional complaints, except as docu Neurologic: Reports system reviewed and no additional complaints, except as documented and Reports weakness Endocrine: Endocrine: Denies fatigue PMF Past Medical History Medical History Closed fracture of cuboid bones of both feet with routine healing Tobacco use Marijuana use Trauma in childhood Anxiety Depression Surgical History Surgical History H/O foot surgery Social History Social History Household Members: None Housing: Apartment Do you presently have visiting nurse or other home services: No Alcohol intake: current Comment: For the last 2 weeks patient has been drinking 10 nips minimum per day of v Patient Tobacco Use Status: Current everyday Tobacco user Tobacco use type: Cigarette Smoked in Last 30 Days: Yes e-Cigarette/Vaping Use: Currently Using Patient Interested in Nicotine Replacement: No Patient Given Instructions on How to Stop Smoking: No Second Hand Smoke Exposure: No Use of substances other than those prescribed or required for medical reasons: No Substance Use Type: Marijuana Substance Use Frequency: Daily Currently Displaying Signs/Symptoms of Drug Intoxication Withdrawal: No Have you been hit, kicked, punched, or otherwise hurt by someone within the past year? If so, by whom?: No Do you feel safe in your current relationship?: Yes Is there a partner from a previous relationship who is making you feel unsafe now?: No Are you made to feel afraid or neglected: No Advance Directives: No Advance Directives Information Provided: Yes Suicidal Behavior: Pre-occupation with Current/Past Psychiatric Disorders: Alcohol abuse and Chronic mental illess Garcia Symptoms: Anxiety Access to Firearms: No Do you have thoughts of harming others: None Do you have a plan to hurt others: No Plan Recently lost weight without trying: Yes How much weight loss: 2-13 pounds Eating poorly because of decreased appetite: Yes Nutrition screen score: 4 Nutrition Risks: Anorexia Patient : No : No Poor oral hygiene: No service: No Current occupational status: employed 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 [employer] HEL[employer] Travel History Ebola Risk: Travel/Contact With Anyone From Affected Area/s: No Meds Allergies Allergy/AdvReac Type Severity Reaction Status Date / Time No Known Allergies Allergy Verified 02/28/25 13:54 Active Medications: Current Medications Diazepam (Diazepam 10 Mg/2 Ml Cartridge) 5 mg IVPUSH Q6H PRN PRN Reason: Anxiety Ergocalciferol (Ergocalciferol (Vitamin D2) 1,250 Mcg Capsule) 1,250 mcg PO Th@0900 ROCKY Last Admin: 03/02/25 09:15 Dose: 1,250 mcg Guaifenesin (Guaifenesin La 600 Mg Tab.Er.12h) 600 mg PO BID [facility] Last Admin: 03/02/25 09:15 Dose: 600 mg Hydromorphone HCl (Hydromorphone Hcl 0.5 Mg/0.5 Ml Syringe) 0.5 mg IVPUSH Q4H PRN; Protocol PRN Reason: Pain, Moderate(Pain Scale 4-6) Last Admin: 03/01/25 15:49 Dose: 0.5 mg Hydromorphone HCl (Hydromorphone Hcl 1 Mg/Ml Syringe) 1 mg IVPUSH Q4H PRN; Protocol PRN Reason: Pain, Severe (Pain Scale 7-10) Last Admin: 03/02/25 09:25 Dose: 1 mg Thiamine HCl 100 mg/ Sodium (Chloride) 101 mls @ 202 mls/hr IV DAILY [facility] Last Infusion: 03/01/25 08:51 Dose: Infused Cefepime HCl (Maxipime) 2 gm in 50 mls @ 100 mls/hr IV Q8H [facility] Last Infusion: 03/02/25 09:25 Dose: Infused Folic Acid 1 mg/ Sodium (Chloride) 50.2 mls @ 100.4 mls/hr IV DAILY [facility] Last Infusion: 03/01/25 08:51 Dose: Infused Vancomycin HCl 1,000 mg/ (Sodium Chloride) 270 mls @ 270 mls/hr IV Q8H [facility] Last Admin: 03/02/25 09:15 Dose: 270 mls/hr Metoprolol Tartrate (Metoprolol Tartrate 5 Mg/5 Ml Vial) 2.5 mg IVPUSH Q4H [facility]; Protocol Last Admin: 03/02/25 06:31 Dose: 2.5 mg Pantoprazole Sodium (Pantoprazole Sodium 40 Mg/10 Ml Vial) 40 mg IVPUSH DAILY@0630 [facility] Last Admin: 03/02/25 06:31 Dose: 40 mg Pharmacy Consult (Consult Rx Etoh Phenob Im/Po) 10 each MISCELLANE ONCE PRN; Protocol PRN Reason: Consult order Pharmacy Consult (Consult Rx Vancomycin Dosing) 1 each MISCELLANE DAILY PRN PRN Reason: Consult order Phenobarbital (Phenobarbital 30 Mg Tablet) 30 mg PO BID [facility] Stop: 03/02/25 21:01 Last Admin: 03/02/25 09:15 Dose: 30 mg Phenobarbital (Phenobarbital 15 Mg Tablet) 15 mg PO BID [facility] Stop: 03/04/25 21:01 Phenobarbital (Phenobarbital 15 Mg Tablet) 15 mg PO DAILY [facility] Stop: 03/06/25 09:01 Polyethylene Glycol (Polyethylene Glycol 3350 17 Gm Powd.Pack) 17 gm PO BID [facility] Last Admin: 03/02/25 09:25 Dose: Not Given Sertraline HCl (Sertraline Hcl 100 Mg Tablet) 100 mg PO DAILY [facility] Last Admin: 03/02/25 09:15 Dose: 100 mg Sertraline HCl (Sertraline Hcl 50 Mg Tablet) 50 mg PO DAILY [facility] Last Admin: 03/02/25 09:15 Dose: 50 mg Sodium Chloride (0.9 % Sodium Chloride Flush 3 Ml Syringe) 3 ml IVFLUSH QSHIFT [facility] Last Admin: 03/02/25 09:25 Dose: Not Given Home Medications ?Medication ?Instructions ?Recorded ?Confirmed ?Last Taken ?Type acetaminophen 325 mg tablet 325 mg PO QID PRN Pain 02/28/25 02/28/25 02/27/25 History sertraline 100 mg tablet 100 mg PO DAILY 02/28/25 02/28/25 02/26/25 History sertraline 25 mg tablet 50 mg PO DAILY 02/28/25 02/28/25 02/26/25 History Physical Exam 2 Vital Signs: Vital Signs: Last Vital Signs Temp 97.6 F 03/02/25 08:00 Pulse 128 H 03/02/25 08:00 Resp 18 03/02/25 09:25 BP 107/62 03/02/25 08:00 Pulse Ox 90 L 03/02/25 08:00 O2 Del Method Room Air 03/02/25 08:00 BMI result Body Mass Index 22.9 Const: General: cooperative, comfortable, no acute distress, alert, awake and ill appearing Nutritional Appearance: thin Orientation/consciousness: p atient oriented x3 Limitations: no limitations HEENT: Head: Yes normocephalic and Yes atraumatic Neck: Neck: Yes trachea midline, Yes supple and Yes no JVD Resp: Effort & Inspection: decreased respiratory effort Auscultation: clear to auscultation bilaterally Cardio: Jugular venous distension: no JVD Rate: tachycardic Rhythm: r egular rhythm Heart sounds: S1 normal heart sound present, S2 normal heart sound present, no click, no gallops and no murmurs GI: Palpation (GI): Tenderness to palpation present (GI) Auscultation: n ormal bowel sounds Skin: General skin exam: no rashes or lesions noted Neuro: General: patient oriented x3 and no focal motor deficits Extrem: General: Yes no clubbing, cyanosis or edema Objective Labs and Meds 03/02/25 03:36 03/02/25 03:36 Lab results: Laboratory Results - last 24 hr 02/28/25 03/01/25 03/01/25 19:11 06:41 13:38 WBC RBC Hgb Hct MCV MCH MCHC RDW Plt Count MPV Immature Gran % (Auto) Neut % (Auto) Lymph % (Auto) [place] % (Auto) Eos % (Auto) Baso % (Auto) Lymph # (Auto) [place] # (Auto) Eos # (Auto) Baso # (Auto) Abs Immat Gran (auto) Absolute Neuts (auto) Absolute Nucleated RBC Nucleated RBC % (auto) D-Dimer High Sensitivty Sodium Potassium Chloride Carbon Dioxide Anion Gap BUN Creatinine Estim Creat Clear Calc Estimated GFR Random Glucose Lactic Acid Calcium Phosphorus Magnesium Total Bilirubin Direct Bilirubin AST ALT Alkaline Phosphatase Troponin I High Sens Total Protein Albumin Vitamin B12 25-OH Vitamin D Total 13.0 L TSH PTH Intact 110.8 H Random Vancomycin Urine Opiates Screen POSITIVE H Ur Buprenorphine Scrn Not Detected Ur Oxycodone Screen Not Detected Urine Methadone Screen Not Detected Urine Fentanyl Screen Not Detected Ur Barbiturates Screen Not Detected Ur Phencyclidine Scrn Not Detected Ur Amphetamines Screen Not Detected U Benzodiazepines Scrn Not Detected Urine Cocaine Screen Not Detected U Marijuana (THC) Screen POSITIVE H 03/01/25 03/02/25 03/02/25 21:05 03:36 09:41 WBC 8.3 RBC 3.05 L Hgb 11.6 L Hct 32.2 L MCV 105.6 H MCH 38.0 H MCHC 36.0 H RDW 14.1 Plt Count 106 L MPV 10.8 Immature Gran % (Auto) 0.6 H Neut % (Auto) 73.9 H Lymph % (Auto) 17.2 L [place] % (Auto) 7.7 Eos % (Auto) 0.2 Baso % (Auto) 0.4 Lymph # (Auto) 1.4 [place] # (Auto) 0.6 Eos # (Auto) 0.0 Baso # (Auto) 0.0 Abs Immat Gran (auto) 0.05 H Absolute Neuts (auto) 6.1 Absolute Nucleated RBC 0.000 Nucleated RBC % (auto) 0.0 D-Dimer High Sensitivty 1698 Sodium 136 Potassium 3.3 Chloride 106 Carbon Dioxide 24 Anion Gap 9 L BUN < 3 L Creatinine 0.34 L Estim Creat Clear Calc 194.1 Estimated GFR > 60 Random Glucose 106 Lactic Acid 1.4 Calcium 7.7 L Phosphorus 2.3 L Magnesium 1.4 L* Total Bilirubin 1.1 H Direct Bilirubin 0.6 H AST 90 H ALT 32 H Alkaline Phosphatase 107 Troponin I High Sens 1963.5 H* 1871.2 H* Total Protein 4.2 L Albumin 2.1 L Vitamin B12 476 25-OH Vitamin D Total TSH 1.49 PTH Intact Random Vancomycin 8.5 L Urine Opiates Screen Ur Buprenorphine Scrn Ur Oxycodone Screen Urine Methadone Screen Urine Fentanyl Screen Ur Barbiturates Screen Ur Phencyclidine Scrn Ur Amphetamines Screen U Benzodiazepines Scrn Urine Cocaine Screen U Marijuana (THC) Screen latest EKG shows sinus tachycardia with septal infarct pattern. Prior EKGs showed T-wave inversions in anterior anterolateral leads Imaging Radiologist's impression: Impressions Abdomen Ultrasound 03/01/25 13:40 IMPRESSION: Small amount of pericholecystic fluid. No evidence of cholelithiasis or acute cholecystitis. Electronically signed by: Hill Berman MD 03/01/2025 02:06 PM EDT RP Assessment and Plan (1) Takotsubo cardiomyopathy: Status: Acute Patient's troponin elevation, abnormal EKG and clinical presentation and echo findings are suggestive of reverse takotsubo cardiomyopathy. She has mostly basal segment akinesis with mid segment hypokinesis with apical sparing. Most likely induced by her acute medical illness. Less likely that this is alcoholic cardiomyopathy. Although she will need serial follow-up echocardiogram. At current time continue treat her underlying medical illness aggressively. She is complaining of some shortness of breath but does not have any overt signs of heart failure at this point time. Shortness of breath most likely due to acute LV systolic dysfunction. At this point time I would hold off on IV fluids. Low-dose beta-katina if tolerated can be started on her as well at 12.5 mg q.6 hours. Continue full disclosure cardiac telemetry. At risk for having further cardiac decompensation and will need close monitoring for development of heart failure syndrome. Will follow with you Procedures Date of Service Date of Service: 03/02/25
[2025-03-02] MEDS: Folic Acid 1 MG in 0.9 % Sodium Chloride 50 ML 100.4 MG IV (11:24)
[2025-03-02] MEDS: Thiamine HCL 100 MG in 0.9 % Sodium Chloride 100 ML 202 MG IV (11:27)
[2025-03-02] MEDS: Metoprolol Tartrate 12.5 MG HALFTAB PO ×3 (12:47→20:43)
[2025-03-02 13:13] LABS: Vancomycin Random 21.6 mcg/mL (15-20)
--- NOTE | 2025-03-02 13:19 | HE.PHANOTE ---
Re Vanco Morning dose was given late, so today's trough was drawn ~3.5 hours after infusion resulting in falsely high level. Pharmacokinetic dosing shows a true trough of ~15.9 mh/L. Will continue 1g q8h and repeat level tomorrow.
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
--- NOTE | 2025-03-02 15:12 | PM.EVENT ---
Event Note Date of Service: 03/02/25 Event Note: Addiction consult recieved for patient with alcohol use disorder Chart reviewed and case discussed with attending provider At this time patient is not in withdrawal and acute medical issues more pressing Will follow along and see patient once sx have improved Time Spent With Patient Time: Total time managing care of this patient today ____ minutes.
[2025-03-02] MEDS: LORazepam 0.5 MG TABLET 0.25 MG PO (20:17)
[2025-03-02] MEDS: HYDROmorphone HCl 0.5 MG/0.5 ML SYRINGE IVPUSH (20:43)
[2025-03-02] MEDS: polyethylene glycoL 3350 17 GM POWD.PACK PO (20:52)
[2025-03-02] MEDS: 0.9 % Sodium Chloride Flush 3 ML SYRINGE IVFLUSH (22:24)
[2025-03-03] VITALS (11 sets, daily range): BP systolic 90–145; BP diastolic 54–101; PULSE 94–118; RESP 15–18; TEMP 36.2–37.1; O2SAT 81–99
[2025-03-03] MEDS: vancomycin HCL 1,000 MG in 0.9 % Sodium Chloride 250 ML 270 MG IV ×2 (00:10→06:16)
[2025-03-03] MEDS: HYDROmorphone HCl 0.5 MG/0.5 ML SYRINGE IVPUSH ×2 (01:06→05:17)
[2025-03-03] MEDS: hydrOXYzine HCL 25 MG TABLET PO ×2 (01:07→08:35)
[2025-03-03] MEDS: Metoprolol Tartrate 12.5 MG HALFTAB PO ×3 (03:47→20:52)
[2025-03-03] MEDS: LORazepam 0.5 MG TABLET 0.25 MG PO ×3 (05:17→23:40)
[2025-03-03] MEDS: cefEPime HCl/D5W 2 GM/50 ML PIGGYBACK IV (05:22)
[2025-03-03] MEDS: Pantoprazole Sodium 40 MG/10 ML VIAL IVPUSH (06:16)
[2025-03-03 07:39] LABS: MANUAL DIFF FLAG NO
[2025-03-03 07:50] LABS: Basophils Absolute Auto 0.1 X10*3/uL (0.0-0.2); Basophils Percent Auto 0.7 % (0-2); Eosinophils Percent Auto 0.6 % (0-4); Hematocrit 28.2 % (37.0-47.0); Hemoglobin 9.7 g/dl (12.0-16.0); Imm Gran Abs Auto 0.06 X10*3/uL (0.00-0.03); Imm Gran Pct Auto 0.9 % (0.0-0.4); Lymphocytes Absolute Auto 1.6 X10*3/uL (1.2-4.9); Lymphocytes Percent Auto 23.4 % (20-40); Mean Corpuscular HGB Conc 34.4 g/dl (31.0-35.0); Mean Corpuscular Hemoglobin 37.2 pg (27.0-33.0); Mean Platelet Volume 10.6 fL (9.4-12.3); Monocytes Absolute Auto 0.6 X10*3/uL (0.1-1.2); Monocytes Percent Auto 9.2 % (2-11); Neutrophils Absolute Auto 4.5 x10*3/uL (2.0-8.3); Neutrophils Percent Auto 65.2 % (45-73); Platelet Count 106 X10*3/uL (160-400); Red Blood Count 2.61 X10*6/uL (4.20-5.50); Red Cell Distribution Width 14.1 % (11.0-16.0)
[2025-03-03 08:05] LABS: Alanine Aminotransferase 24 U/L (0-31); Albumin Level 2.1 g/dL (3.5-5.0); Alkaline Phosphatase 120 U/L (39-117); Aspartate Amino Transferase 81 U/L (5-31); Bilirubin Direct 0.4 mg/dL (0.0-0.5); Bilirubin Total 0.9 mg/dL (0.0-1.0); Total Protein 4.3 g/dL (6.5-8.0)
[2025-03-03 08:08] LABS: Blood Urea Nitrogen 4 mg/dL (9-16); Calcium 7.4 mg/dL (8.4-10.2); Creatinine Clr Calc Pharmacy 169.2; Estimated Glomerular Filt Rate > 60; Glucose Random 83 mg/dL (60-115)
[2025-03-03 08:21] LABS: Anion Gap 12 (12-20); Carbon Dioxide 22 mmol/L (22-29); Chloride 107 mmol/L (96-108); Potassium 2.9 mmol/L (3.3-5.1); Sodium 138 mmol/L (135-145)
[2025-03-03] MEDS: Sertraline HCL 50 MG TABLET PO (08:35)
[2025-03-03] MEDS: Thiamine HCL 100 MG TABLET PO (08:35)
[2025-03-03] MEDS: Sertraline HCL 100 MG TABLET PO (08:35)
[2025-03-03] MEDS: guaiFENesin LA 600 MG TAB.ER.12H PO ×2 (08:35→20:52)
[2025-03-03] MEDS: PHENobarbitaL 15 MG TABLET PO ×2 (08:35→20:52)
[2025-03-03] MEDS: Folic Acid 1 MG TABLET PO (08:35)
[2025-03-03] MEDS: polyethylene glycoL 3350 17 GM POWD.PACK PO ×2 (08:36→20:53)
[2025-03-03] MEDS: 0.9 % Sodium Chloride Flush 3 ML SYRINGE IVFLUSH ×3 (08:44→20:53)
--- NOTE | 2025-03-03 10:44 | PM.PNCARD ---
Subjective Subjective Date of Service: 03/03/25 Principal diagnosis: Takotsubo cardiomyopathy. Interval history: She says she feels better although remains with low oxygen levels. Heart rate is settled down a little bit. She denies any chest pain. Says shortness of breath has improved. Blood pressure is soft Review of Systems Constitutional: Reports lethargy and Reports weakness Eyes: Reports no additional eye complaints Cardiovascular: Denies chest pain, Denies rapid heart rate, Denies lightheadedness, Denies Loss of Consciousness and Reports dyspnea Respiratory: Reports dyspnea Gastrointestinal: Reports abdominal pain Reports weakness Physical Exam Vital Signs: Last Vital Signs Temp 97.3 F 03/03/25 07:16 Pulse 104 H 03/03/25 07:16 Resp 18 03/03/25 07:16 BP 100/62 03/03/25 07:16 Pulse Ox 90 L 03/03/25 07:16 O2 Del Method Nasal Cannula 03/03/25 07:16 O2 Flow Rate 1 03/03/25 07:16 BMI result Body Mass Index 22.9 Const General: cooperative, comfortable, no acute distress, alert and awake Nutritional Appearance: thin Orientation/consciousness: patient oriented x3 Limitations: no limitations HEENT Head: Yes normocephalic and Yes atraumatic Neck Neck: Yes trachea midline, Yes supple and Yes no JVD Resp Effort & Inspection: decreased respiratory effort Auscultation: clear to auscultation bilaterally Cardio Jugular venous distension: no JVD Rate: tachycardic Rhythm: regular rhythm Heart sounds: S1 normal heart sound present, S2 normal heart sound present, no click, no gallops and no murmurs GI Palpation (GI): Tenderness to palpation present (GI) Auscultation: normal bowel sounds Skin General skin exam: no rashes or lesions noted Neuro General: patient oriented x3 and no focal motor deficits Extrem General: Yes no clubbing, cyanosis or edema Objective Labs and Meds 03/03/25 07:09 03/03/25 07:09 Lab results: Laboratory Results - last 24 hr 03/02/25 03/03/25 12:48 07:09 WBC 7.0 RBC 2.61 L Hgb 9.7 L Hct 28.2 L MCV 108.0 H MCH 37.2 H MCHC 34.4 RDW 14.1 Plt Count 106 L MPV 10.6 Immature Gran % (Auto) 0.9 H Neut % (Auto) 65.2 Lymph % (Auto) 23.4 [place] % (Auto) 9.2 Eos % (Auto) 0.6 Baso % (Auto) 0.7 Lymph # (Auto) 1.6 [place] # (Auto) 0.6 Eos # (Auto) 0.0 Baso # (Auto) 0.1 Abs Immat Gran (auto) 0.06 H Absolute Neuts (auto) 4.5 Absolute Nucleated RBC 0.000 Nucleated RBC % (auto) 0.0 Sodium 138 Potassium 2.9 L* Chloride 107 Carbon Dioxide 22 Anion Gap 12 BUN 4 L Creatinine 0.39 L Estim Creat Clear Calc 169.2 Estimated GFR > 60 Random Glucose 83 Calcium 7.4 L Magnesium 2.0 Total Bilirubin 0.9 Direct Bilirubin 0.4 AST 81 H ALT 24 Alkaline Phosphatase 120 H Total Protein 4.3 L Albumin 2.1 L Random Vancomycin 21.6 H Progress Note: A&P Assessment and plan (1) Takotsubo cardiomyopathy: Status: Acute Assessment and Plan: Takotsubo cardiomyopathy in his young woman with life-threatening significant pancreatitis. She has although complication related to pancreatitis at this point time. Clinically doing well from cardiac perspective. No signs of heart failure. Continue to maximize metoprolol as tolerated. Hold off on RC inhibitors given her soft blood pressure. Continue supportive care. Avoidance of drugs as well as alcohol was discussed in the future. She showed understanding. At this point in time will need follow-up echocardiogram in couple of weeks to see if there is resolution and LV systolic dysfunction. At this point time will sign of the care. Please consult us if need be. Time Spent With Patient Time: Total time managing care of this patient today ____ minutes. Progress Note: Quality Stroke Does the patient have a stroke diagnosis?: No Reason for No Anti-thrombotic by Day Two: N/A - Med Ordered Procedures Date of Service Date of Service: 03/03/25
[2025-03-03] MEDS: HYDROmorphone HCl 1 MG/ML SYRINGE IVPUSH ×3 (11:00→20:53)
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
[2025-03-03] MEDS: Potassium Chloride ER 20 MEQ TAB.ER.PRT 40 MEQ PO (12:45)
[2025-03-03] MEDS: Furosemide 20 MG/2 ML VIAL 10 MG IVPUSH (12:46)
[2025-03-03] MEDS: Potassium Chloride/H20 10 MEQ/100 ML PIGGYBACK 100 MEQ IV ×2 (12:50→14:15)
[2025-03-03] MEDS: Calcium Gluconate/NaCl,Iso-Osm 2 GM/100 ML PLAST..BAG IV (14:15)
--- NOTE | 2025-03-03 14:16 | MHC.CM.PN ---
EMR REVIEWED, PT W/2 PLEURAL EFFUSIONS/SEVERE PANCREATITIS/ TAKOTSUBO CARDIOMYOPATHY, PT MEDICALLY COMPLICATED, PLAN FOR IV LASIX AND WEAN OFF O2, ANTIC PT WILL REMAIN INPT THROUGH W/E, CM WILL CONT TO FOLLOW DC NEEDS.
[2025-03-03] MEDS: Omeprazole 20 MG CAPSULE.DR PO (15:49)
[2025-03-03 16:17] LABS: Calcium, Ionized 4.7 mg/dL (4.7-5.5)
[2025-03-04] VITALS (12 sets, daily range): BP systolic 96–107; BP diastolic 56–70; PULSE 103–118; RESP 16–22; TEMP 36.1–37.2; O2SAT 89–99
[2025-03-04] MEDS: Metoprolol Tartrate 12.5 MG HALFTAB PO ×4 (01:31→19:47)
[2025-03-04] MEDS: HYDROmorphone HCl 1 MG/ML SYRINGE IVPUSH ×4 (01:31→14:44)
[2025-03-04] MEDS: Omeprazole 20 MG CAPSULE.DR PO ×2 (05:37→14:44)
[2025-03-04 07:43] LABS: Basophils Absolute Auto 0.1 X10*3/uL (0.0-0.2); Basophils Percent Auto 0.8 % (0-2); Eosinophils Percent Auto 0.5 % (0-4); Hematocrit 25.6 % (37.0-47.0); Hemoglobin 8.9 g/dl (12.0-16.0); Imm Gran Abs Auto 0.11 X10*3/uL (0.00-0.03); Imm Gran Pct Auto 1.4 % (0.0-0.4); Lymphocytes Absolute Auto 1.4 X10*3/uL (1.2-4.9); Lymphocytes Percent Auto 18.1 % (20-40); Mean Corpuscular HGB Conc 34.8 g/dl (31.0-35.0); Mean Corpuscular Hemoglobin 37.7 pg (27.0-33.0); Mean Corpuscular Volume 108.5 fL (80.0-98.0); Mean Platelet Volume 10.5 fL (9.4-12.3); Monocytes Absolute Auto 0.8 X10*3/uL (0.1-1.2); Monocytes Percent Auto 9.8 % (2-11); Neutrophils Absolute Auto 5.5 x10*3/uL (2.0-8.3); Neutrophils Percent Auto 69.4 % (45-73); Red Blood Count 2.36 X10*6/uL (4.20-5.50); Red Cell Distribution Width 14.5 % (11.0-16.0)
[2025-03-04 07:44] LABS: Platelet Count 142 X10*3/uL (160-400); White Blood Count 7.9 X10*3/uL (4.8-10.8)
[2025-03-04 07:56] LABS: Anion Gap 14 (12-20); Blood Urea Nitrogen 4 mg/dL (9-16); Calcium 7.8 mg/dL (8.4-10.2); Carbon Dioxide 22 mmol/L (22-29); Chloride 105 mmol/L (96-108); Estimated Glomerular Filt Rate > 60; Glucose Random 62 mg/dL (60-115); Potassium 3.4 mmol/L (3.3-5.1); Sodium 138 mmol/L (135-145)
[2025-03-04 08:03] LABS: B Type Natriuretic Peptide 548 pg/mL (<100)
[2025-03-04] MEDS: LORazepam 0.5 MG TABLET 0.25 MG PO ×2 (08:45→19:47)
[2025-03-04] MEDS: PHENobarbitaL 15 MG TABLET PO ×2 (08:46→19:47)
[2025-03-04] MEDS: Sertraline HCL 100 MG TABLET PO (08:46)
[2025-03-04] MEDS: Thiamine HCL 100 MG TABLET PO (08:46)
[2025-03-04] MEDS: Furosemide 20 MG/2 ML VIAL IVPUSH ×3 (08:46→17:37)
[2025-03-04] MEDS: polyethylene glycoL 3350 17 GM POWD.PACK PO ×2 (08:46→19:46)
[2025-03-04] MEDS: Folic Acid 1 MG TABLET PO (08:46)
[2025-03-04] MEDS: guaiFENesin LA 600 MG TAB.ER.12H PO ×2 (08:46→19:47)
[2025-03-04] MEDS: 0.9 % Sodium Chloride Flush 3 ML SYRINGE IVFLUSH ×3 (08:46→19:47)
[2025-03-04] MEDS: Sertraline HCL 50 MG TABLET PO (08:46)
[2025-03-04] MEDS: HYDROmorphone HCl 0.5 MG/0.5 ML SYRINGE IVPUSH ×4 (10:16→23:37)
[2025-03-04] MEDS: Cyanocobalamin (Vitamin B-12) 1,000 MCG TABLET 1000 MCG PO (11:54)
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
[2025-03-04] MEDS: Albumin Human 25 % 100 ML IV ×2 (14:41→19:46)
[2025-03-04] MEDS: hydrOXYzine HCL 25 MG TABLET PO (14:47)
[2025-03-05] VITALS (13 sets, daily range): BP systolic 90–113; BP diastolic 55–70; PULSE 89–113; RESP 16–20; TEMP 36–37.2; O2SAT 91–99
[2025-03-05] MEDS: Metoprolol Tartrate 12.5 MG HALFTAB PO ×4 (01:38→20:59)
[2025-03-05] MEDS: Albumin Human 25 % 100 ML IV ×2 (01:39→09:52)
[2025-03-05] MEDS: HYDROmorphone HCl 0.5 MG/0.5 ML SYRINGE IVPUSH ×5 (03:56→23:00)
[2025-03-05] MEDS: LORazepam 0.5 MG TABLET 0.25 MG PO ×2 (04:05→13:32)
[2025-03-05] MEDS: Omeprazole 20 MG CAPSULE.DR PO ×2 (06:34→17:46)
[2025-03-05 09:14] LABS: MANUAL DIFF FLAG NO
[2025-03-05 09:19] LABS: Basophils Percent Auto 0.3 % (0-2); Eosinophils Absolute Auto 0.1 X10*3/uL (0.0-0.4); Eosinophils Percent Auto 0.9 % (0-4); Hematocrit 23.8 % (37.0-47.0); Hemoglobin 8.5 g/dl (12.0-16.0); Imm Gran Abs Auto 0.12 X10*3/uL (0.00-0.03); Imm Gran Pct Auto 1.9 % (0.0-0.4); Lymphocytes Absolute Auto 1.2 X10*3/uL (1.2-4.9); Lymphocytes Percent Auto 18.8 % (20-40); Mean Corpuscular HGB Conc 35.7 g/dl (31.0-35.0); Mean Corpuscular Hemoglobin 37.9 pg (27.0-33.0); Mean Corpuscular Volume 106.3 fL (80.0-98.0); Mean Platelet Volume 10.2 fL (9.4-12.3); Monocytes Absolute Auto 0.4 X10*3/uL (0.1-1.2); Monocytes Percent Auto 6.7 % (2-11); NRBC Pct Auto 0.3 /100WBC (0.0-0.2); Neutrophils Absolute Auto 4.6 x10*3/uL (2.0-8.3); Neutrophils Percent Auto 71.4 % (45-73); Platelet Count 157 X10*3/uL (160-400); Red Blood Count 2.24 X10*6/uL (4.20-5.50); Red Cell Distribution Width 14.5 % (11.0-16.0); White Blood Count 6.4 X10*3/uL (4.8-10.8)
[2025-03-05 09:42] LABS: B Type Natriuretic Peptide 895 pg/mL (<100)
[2025-03-05 09:49] LABS: Alanine Aminotransferase 23 U/L (0-31); Albumin Level 3.3 g/dL (3.5-5.0); Alkaline Phosphatase 116 U/L (39-117); Anion Gap 13 (12-20); Aspartate Amino Transferase 66 U/L (5-31); Bilirubin Direct 0.5 mg/dL (0.0-0.5); Blood Urea Nitrogen 3 mg/dL (9-16); Calcium 8.5 mg/dL (8.4-10.2); Carbon Dioxide 31 mmol/L (22-29); Chloride 98 mmol/L (96-108); Creatinine Clr Calc Pharmacy 153.5; Estimated Glomerular Filt Rate > 60; Glucose Random 83 mg/dL (60-115); Magnesium 1.7 mg/dL (1.6-2.6); Potassium 3.2 mmol/L (3.3-5.1); Sodium 139 mmol/L (135-145); Total Protein 5.5 g/dL (6.5-8.0)
[2025-03-05] MEDS: Furosemide 20 MG/2 ML VIAL IVPUSH ×2 (09:53→17:45)
[2025-03-05] MEDS: Folic Acid 1 MG TABLET PO (09:54)
[2025-03-05] MEDS: Thiamine HCL 100 MG TABLET PO (09:54)
[2025-03-05] MEDS: PHENobarbitaL 15 MG TABLET PO (09:54)
[2025-03-05] MEDS: Sertraline HCL 50 MG TABLET PO (09:54)
[2025-03-05] MEDS: guaiFENesin LA 600 MG TAB.ER.12H PO ×2 (09:54→20:58)
[2025-03-05] MEDS: Cyanocobalamin (Vitamin B-12) 1,000 MCG TABLET 1000 MCG PO (09:54)
[2025-03-05] MEDS: 0.9 % Sodium Chloride Flush 3 ML SYRINGE IVFLUSH ×2 (09:54→17:46)
[2025-03-05] MEDS: Sertraline HCL 100 MG TABLET PO (09:54)
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
[2025-03-05] MEDS: Potassium Chloride Packet 20 MEQ PACKET 40 MEQ PO ×2 (13:32→15:18)
[2025-03-05] MEDS: hydrOXYzine HCL 50 MG TABLET PO (21:54)
[2025-03-05] MEDS: LORazepam 0.5 MG TABLET PO (23:00)
[2025-03-06] VITALS (16 sets, daily range): BP systolic 82–112; BP diastolic 43–73; PULSE 86–97; RESP 17–20; TEMP 36.1–36.6; O2SAT 94–100
[2025-03-06] MEDS: HYDROmorphone HCl 0.5 MG/0.5 ML SYRINGE IVPUSH ×4 (02:49→16:42)
[2025-03-06] MEDS: Metoprolol Tartrate 12.5 MG HALFTAB PO ×3 (02:49→22:04)
[2025-03-06 06:15] LABS: MANUAL DIFF FLAG NO
[2025-03-06 06:40] LABS: Alanine Aminotransferase 22 U/L (0-31); Albumin Level 3.4 g/dL (3.5-5.0); Alkaline Phosphatase 114 U/L (39-117); Anion Gap 14 (12-20); Aspartate Amino Transferase 57 U/L (5-31); Bilirubin Direct 0.4 mg/dL (0.0-0.5); Bilirubin Total 0.9 mg/dL (0.0-1.0); Blood Urea Nitrogen 4 mg/dL (9-16); Calcium 8.8 mg/dL (8.4-10.2); Carbon Dioxide 30 mmol/L (22-29); Chloride 99 mmol/L (96-108); Creatinine Clr Calc Pharmacy 157.2; Estimated Glomerular Filt Rate > 60; Glucose Random 89 mg/dL (60-115); Potassium 3.6 mmol/L (3.3-5.1); Sodium 139 mmol/L (135-145); Total Protein 5.7 g/dL (6.5-8.0)
[2025-03-06] MEDS: Omeprazole 20 MG CAPSULE.DR PO ×2 (06:49→16:42)
[2025-03-06 07:00] LABS: Basophils Absolute Auto 0.1 X10*3/uL (0.0-0.2); Basophils Percent Auto 0.8 % (0-2); Eosinophils Absolute Auto 0.1 X10*3/uL (0.0-0.4); Eosinophils Percent Auto 1.2 % (0-4); Hematocrit 27.8 % (37.0-47.0); Hemoglobin 9.5 g/dl (12.0-16.0); Imm Gran Abs Auto 0.09 X10*3/uL (0.00-0.03); Imm Gran Pct Auto 1.5 % (0.0-0.4); Lymphocytes Absolute Auto 1.2 X10*3/uL (1.2-4.9); Lymphocytes Percent Auto 19.7 % (20-40); Mean Corpuscular HGB Conc 34.2 g/dl (31.0-35.0); Mean Corpuscular Hemoglobin 37.5 pg (27.0-33.0); Mean Corpuscular Volume 109.9 fL (80.0-98.0); Mean Platelet Volume 10.5 fL (9.4-12.3); Monocytes Absolute Auto 0.3 X10*3/uL (0.1-1.2); Neutrophils Absolute Auto 4.3 x10*3/uL (2.0-8.3); Neutrophils Percent Auto 71.8 % (45-73); Platelet Count 209 X10*3/uL (160-400); Red Blood Count 2.53 X10*6/uL (4.20-5.50)
[2025-03-06] MEDS: Furosemide 20 MG/2 ML VIAL IVPUSH (08:50)
[2025-03-06] MEDS: Thiamine HCL 100 MG TABLET PO (08:51)
[2025-03-06] MEDS: PHENobarbitaL 15 MG TABLET PO (08:51)
[2025-03-06] MEDS: LORazepam 0.5 MG TABLET PO ×2 (08:51→16:42)
[2025-03-06] MEDS: Cyanocobalamin (Vitamin B-12) 1,000 MCG TABLET 1000 MCG PO (08:51)
[2025-03-06] MEDS: guaiFENesin LA 600 MG TAB.ER.12H PO ×2 (08:51→19:54)
[2025-03-06] MEDS: hydrOXYzine HCL 50 MG TABLET PO ×3 (08:51→23:54)
[2025-03-06] MEDS: Sertraline HCL 50 MG TABLET PO (08:52)
[2025-03-06] MEDS: Sertraline HCL 100 MG TABLET PO (08:52)
[2025-03-06] MEDS: Folic Acid 1 MG TABLET PO (08:52)
[2025-03-06] MEDS: 0.9 % Sodium Chloride Flush 3 ML SYRINGE IVFLUSH ×3 (08:52→19:54)
[2025-03-06] MEDS: polyethylene glycoL 3350 17 GM POWD.PACK PO ×2 (08:54→19:54)
--- NOTE | 2025-03-06 15:39 | MHC.CM.PN ---
EMR REVIEWED, PT W/2 PLEURAL EFFUSIONS/SEVERE PANCREATITIS/ TAKOTSUBO CARDIOMYOPATHY, PT WEANED OFF HI-FLOW O2, NO PLAN FOR DC AT THIS TIME, CM WILL CONT TO FOLLOW DC NEEDS.
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
[2025-03-06] MEDS: Albumin Human 25 % 50 ML 100 ML IV (20:20)
[2025-03-06] MEDS: Lidocaine 4 % Patch ADH..PATCH 2 PATCH TRANSDERMA (22:04)
[2025-03-07] MEDS: Ketorolac Tromethamine 15 MG/ML VIAL IVPUSH ×2 (00:12→06:31)
[2025-03-07 00:42] VITALS: PULSE 86; RESP 18
[2025-03-07 04:00] VITALS: BP 95/50; PULSE 84; RESP 18; TEMP 36.5; O2SAT 93
[2025-03-07] MEDS: hydrOXYzine HCL 50 MG TABLET PO (06:10)
[2025-03-07] MEDS: Omeprazole 20 MG CAPSULE.DR PO (06:10)
[2025-03-07 06:21] LABS: Anion Gap 14 (12-20); Blood Urea Nitrogen 4 mg/dL (9-16); Calcium 9.3 mg/dL (8.4-10.2); Carbon Dioxide 28 mmol/L (22-29); Chloride 100 mmol/L (96-108); Creatinine Clr Calc Pharmacy 173.7; Estimated Glomerular Filt Rate > 60; Glucose Random 110 mg/dL (60-115); Potassium 3.6 mmol/L (3.3-5.1); Sodium 138 mmol/L (135-145)
[2025-03-07 07:08] VITALS: BP 103/61; PULSE 85; RESP 18; TEMP 36.1; O2SAT 98
[2025-03-07] MEDS: Cyanocobalamin (Vitamin B-12) 1,000 MCG TABLET 1000 MCG PO (09:44)
[2025-03-07] MEDS: polyethylene glycoL 3350 17 GM POWD.PACK PO (09:44)
[2025-03-07] MEDS: Folic Acid 1 MG TABLET PO (09:44)
[2025-03-07] MEDS: Sertraline HCL 100 MG TABLET PO (09:44)
[2025-03-07] MEDS: Sertraline HCL 50 MG TABLET PO (09:45)
[2025-03-07] MEDS: Thiamine HCL 100 MG TABLET PO (09:45)
[2025-03-07] MEDS: guaiFENesin LA 600 MG TAB.ER.12H PO (09:45)
[2025-03-07] MEDS: LORazepam 0.5 MG TABLET PO (09:45)
[2025-03-07] MEDS: 0.9 % Sodium Chloride Flush 3 ML SYRINGE IVFLUSH (09:47)
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
--- NOTE | 2025-03-07 12:47 | MHC.CM.PN ---
Pt is medically cleared for discharge home self-care, she has arranged her own transport home today.
== END 2025-03-07 11:59 | disposition home or self-care (01) | DRG 282 ==
LOC: HO.ED 19:29 → HO.EDOVER 19:37 → HO.IMC 23:35
PROVIDERS: Nurse Practitioner Family; Physician Assistant; Admitting Provider Internal Medicine; Emergency Provider Emergency Medicine; Visit Provider Student in an Organized Health Care Education/Training Program
DX: K85.21 Alcohol induced acute pancreatitis with uninfected necrosis (principal); J96.01 Acute respiratory failure with hypoxia; I50.21 Acute systolic (congestive) heart failure; E87.21 Acute metabolic acidosis; E83.51 Hypocalcemia; R18.8 Other ascites; F50.029 Anorexia nervosa, binge eating/purging type, unspecified; J91.8 Pleural effusion in other conditions classified elsewhere; E86.0 Dehydration; K76.0 Fatty (change of) liver, not elsewhere classified; I51.81 Takotsubo syndrome; F32.9 Major depressive disorder, single episode, unspecified; K59.09 Other constipation; F41.9 Anxiety disorder, unspecified; E83.42 Hypomagnesemia; F10.139 Alcohol abuse with withdrawal, unspecified; F17.210 Nicotine dependence, cigarettes, uncomplicated; Z68.22 Body mass index [BMI] 22.0-22.9, adult; Z20.822 Contact with and (suspected) exposure to COVID-19; Z79.899 Other long term (current) drug therapy
CPT/HCPCS: 0241U; 36415; 71045; 71275; 74177; 76705; 80048; 80053; 80076; 80202; 80307; 81003; 82248; 82306; 82330; 82607; 83605; 83690; 83735; 83880; 83970; 84100; 84443; 84484; 84702; 85025; 85379; 86140; 87040; 93005; 93306; 99285; J0613; J0692; J1171; J1650; J1790; J1808; J1885; J1938; J2270; J2470; J2543; J2560; J3360; J3370; J3371; J3411; J3475; J3480; J7120; P9047; Q9957; Q9967

== ENCOUNTER → 2025-02-28 15:55 | Outpatient (BNV) | payer OTHER, SELFPAY | PROVIDERS: Admitting Provider Internal Medicine; Emergency Provider Emergency Medicine; Visit Provider Internal Medicine Cardiovascular Disease | DX: R94.31 Abnormal electrocardiogram [ECG] [EKG] (principal); E61.2 Magnesium deficiency; Z76.0 Encounter for issue of repeat prescription | CPT/HCPCS: 93010 ==

== ENCOUNTER → 2025-02-28 16:07 | Outpatient (BNV) | payer SELFPAY | PROVIDERS: Admitting Provider Internal Medicine; Emergency Provider Emergency Medicine; Visit Provider Radiology Diagnostic Radiology | DX: K85.90 Acute pancreatitis without necrosis or infection, unspecified (principal) | CPT/HCPCS: 74177 ==

== ENCOUNTER 2025-02-28 19:31 | Outpatient (BNV) | payer OTHER, SELFPAY | END 2025-03-02 04:09 | PROVIDERS: Admitting Provider Internal Medicine; Emergency Provider Emergency Medicine; Visit Provider Radiology Diagnostic Radiology | DX: K85.90 Acute pancreatitis without necrosis or infection, unspecified (principal); K76.0 Fatty (change of) liver, not elsewhere classified; J90 Pleural effusion, not elsewhere classified; J81.1 Chronic pulmonary edema; R18.8 Other ascites; K68.9 Other disorders of retroperitoneum; J98.11 Atelectasis | CPT/HCPCS: 71045; 71275; 74177 ==

== ENCOUNTER 2025-02-28 19:31 | Outpatient (BNV) | payer OTHER, SELFPAY | END 2025-03-01 13:40 | PROVIDERS: Admitting Provider Internal Medicine; Emergency Provider Emergency Medicine; Visit Provider Radiology Diagnostic Radiology | DX: K80.80 Other cholelithiasis without obstruction (principal) | CPT/HCPCS: 76705 ==

== ENCOUNTER 2025-02-28 19:31 | Outpatient (BNV) | payer OTHER, SELFPAY | END 2025-03-04 08:40 | PROVIDERS: Admitting Provider Internal Medicine; Emergency Provider Emergency Medicine; Visit Provider Radiology Diagnostic Radiology | DX: R09.02 Hypoxemia (principal) | CPT/HCPCS: 71045 ==

== ENCOUNTER 2025-02-28 19:31 | Outpatient (BNV) | payer OTHER, SELFPAY | END 2025-03-06 08:20 | PROVIDERS: Admitting Provider Internal Medicine; Emergency Provider Emergency Medicine; Visit Provider Radiology Diagnostic Radiology | DX: R91.8 Other nonspecific abnormal finding of lung field (principal) | CPT/HCPCS: 71045 ==

== ENCOUNTER 2025-02-28 19:31 | Outpatient (BNV) | payer OTHER, SELFPAY | END 2025-03-02 03:00 | PROVIDERS: Admitting Provider Internal Medicine; Emergency Provider Emergency Medicine; Visit Provider Internal Medicine Cardiovascular Disease | DX: I51.81 Takotsubo syndrome (principal); I42.8 Other cardiomyopathies; R00.0 Tachycardia, unspecified | CPT/HCPCS: 93010; 93306 ==

== ENCOUNTER → 2025-02-28 19:31 | Outpatient (BNV) | payer OTHER, SELFPAY | PROVIDERS: Admitting Provider Internal Medicine; Emergency Provider Emergency Medicine; Visit Provider Internal Medicine Cardiovascular Disease | DX: I51.81 Takotsubo syndrome (principal) | CPT/HCPCS: 99222 ==

== ENCOUNTER → 2025-02-28 19:31 | Outpatient (BNV) | payer OTHER, SELFPAY | PROVIDERS: Admitting Provider Internal Medicine; Emergency Provider Emergency Medicine; Visit Provider Nurse Practitioner Family | DX: F10.939 Alcohol use, unspecified with withdrawal, unspecified (principal); E83.42 Hypomagnesemia; K85.20 Alcohol induced acute pancreatitis without necrosis or infection; E83.51 Hypocalcemia; E87.21 Acute metabolic acidosis | CPT/HCPCS: 99223; 99233; 99499 ==

== ENCOUNTER → 2025-02-28 19:31 | Outpatient (BNV) | payer OTHER, SELFPAY | PROVIDERS: Admitting Provider Internal Medicine; Emergency Provider Emergency Medicine; Visit Provider Internal Medicine Gastroenterology | DX: K85.20 Alcohol induced acute pancreatitis without necrosis or infection (principal) | CPT/HCPCS: 99223 ==

== ENCOUNTER → 2025-04-17 15:02 | Outpatient (REF) | payer OTHER, SELFPAY ==
--- NOTE | 2025-04-17 15:07 | CA_ITS ---
Transthoracic Echocardiogram Patient (Last, First, Middle): Magnolia Melgoza E Gender: Female Date of : 2000 Age: 24 Procedure Date: 04/17/2025 Procedure Type: Transthoracic Echocardiogram Location: OP Height: 154.94 cm Weight: 54.43 kg BSA: 1.52 m2 Heart Rate: bpm BP: 103 / 61 mmHg Glass Vial Bending Conveyor Feeder: ROC Referring MD: Tyler Ludwig MD Symptoms: I51.81 - Takotsubo syndrome Study Quality: Adequate ECG Rhythm: Sinus Conclusions: - The left ventricular systolic function is normal. The calculated ejection fraction is 62% by biplane method. Findings Left Ventricle Normal left ventricular cavity size. There is normal left ventricular wall thickness. The left ventricular systolic function is normal. The calculated ejection fraction is 62% by biplane method. There is no evidence of regional wall motion abnormalities. LV peak GLS -21.8%. Prior Study Comparison Changes noted compared to prior study dated: 03/02/2025. Improved LVEF/wall motion. Measurements 2D Linear Measurements IVSd: 0.76 0.6-0.9/0.6-1.0 cm LVIDd: 4.65 3.9-5.3/4.2-5.9 cm LVIDd Index: 3.06 2.4-3.2/2.2-3.1 cm/m2 LVIDs: 2.98 2.0-3.6 cm LVPWd: 0.70 0.7-1.1 cm LV Mass: 132.54 67-162/88-224 g LV Mass Index: 87.20 43-95/49-115 g/m2 LVOT Diam: 2.00 3.0+(-)1.3 cm 2D Systolic Function EF 4C: 60.50 >55% EF 2C: 62.50 >55% EF BiP: 62.30 >55% LVOT LVOT Pk Tu: 0.89 LVOT Mn Tu: 0.59 LVOT VTI: 0.20 LVOT Pk Grad: 3.00 LVOT Mn Grad: 2.00 LVOT Diam: 2.00 LVOT Area: 3.14 Tricuspid Valve RA Press: 3.00 Updated in Other Vendor System with Status of Final Douglas Cuadra MD electronically signed on 04/18/2025 11:48:03 AM with status of Final
== END ==
LOC: HO.CARD 15:02
PROVIDERS: Visit Provider Internal Medicine Cardiovascular Disease
DX: I51.81 Takotsubo syndrome (principal)
CPT/HCPCS: 93308

== ENCOUNTER → 2025-04-17 15:07 | Outpatient (BNV) | payer OTHER, SELFPAY | PROVIDERS: Visit Provider Internal Medicine | DX: I51.81 Takotsubo syndrome (principal) | CPT/HCPCS: 93308; 93356 ==

== ENCOUNTER 2025-06-01 02:14 | Inpatient (IN) | payer OTHER, SELFPAY ==
[2025-06-01] VITALS (8 sets, daily range): BP systolic 106–129; BP diastolic 58–80; PULSE 49–104; RESP 14–20; TEMP 36.1–36.9; O2SAT 95–98; BMI 22.7; BMI 23.6
--- NOTE | ~2025-06-01 | CT_ITS ---
CLINICAL HISTORY: Abdominal pain, vomiting, pancreatitis? CT abdomen and pelvis with contrast Comparison: CT/SR - CT ABDOMEN PELVIS W IV CON - 03/02/25 05:52 EDT Findings: No consolidation or effusion. Tiny low-density foci are present within the liver, for example axial 8. The gallbladder and spleen are unremarkable. Adrenal glands and kidneys are unremarkable. Stranding about the pancreas. Ill-defined low-density lesion within the pancreatic tail noted measuring up to 18 mm. The appendix is borderline prominent 6.5 mm. Reference axial image 57. Mild stranding about the right lower quadrant; however there is also mild diffuse engorgement of the vasa recta and scattered gas and fluid throughout nondistended small and large bowel. No pneumatosis or free air. The bladder is unremarkable. The uterus appears within normal limits. Slightly prominent right ovary with surrounding free fluid. No acute osseous finding. Impression: There is mild stranding about the pancreas. Unclear if this reflects resolving prior pancreatitis or acute on chronic pancreatitis. The low-density lesion within the pancreatic tail most likely reflects sequelae of prior pancreatitis given appearance on most recent CT. A follow-up outpatient MRI could be considered. The appendix is borderline prominent and mildly hyperenhancing; however there is a generalized appearance of enteritis. Appendicitis is possible. Close clinical follow-up and surgical consultation recommended. Abnormal low-density, mildly prominent right ovary with surrounding free fluid. Dedicated pelvic ultrasound recommended to exclude torsion. This document has been electronically signed by: Carson Grimm MD on 06/01/2025 05:43:35
--- NOTE | ~2025-06-01 | US_ITS ---
EXAMINATION: US PELVIS TRANSABDOMINAL AND TRANSVAGINAL, US PELVIC DUPLEX COMPLETE HISTORY: ?right ovary torsion COMPARISON: Correlation is made with a CT of the abdomen with contrast performed earlier in the day. TECHNIQUE: Transabdominal and endovaginal real-time 2D valentino-scale ultrasound was performed. FINDINGS: Uterus: The uterus is normal in size, measuring 6.6 x 3.1 x 5.1 cm. Myometrium has a normal echotexture. No fibroids are identified. Endometrium: The endometrial stripe measures 5 mm in thickness. Right ovary: The right ovary measures 4.4 x 2.0 x 2.5 cm. The right ovary is normal in size and echotexture. Left ovary: The left ovary measures 4.0 x 2.5 x 1.8 cm. The left ovary is normal in size and echotexture. Pelvic fluid: There is complex fluid in the right adnexa. US/US pelvic ovarian doppler IMPRESSION: Complex fluid in the right adnexa. Otherwise unremarkable pelvic ultrasound. Electronically signed by: Hill Berman MD 06/01/2025 12:22 PM EDT
--- NOTE | ~2025-06-01 | US_ITS ---
EXAMINATION: US PELVIS TRANSABDOMINAL AND TRANSVAGINAL, US PELVIC DUPLEX COMPLETE HISTORY: ?right ovary torsion COMPARISON: Correlation is made with a CT of the abdomen with contrast performed earlier in the day. TECHNIQUE: Transabdominal and endovaginal real-time 2D valentino-scale ultrasound was performed. FINDINGS: Uterus: The uterus is normal in size, measuring 6.6 x 3.1 x 5.1 cm. Myometrium has a normal echotexture. No fibroids are identified. Endometrium: The endometrial stripe measures 5 mm in thickness. Right ovary: The right ovary measures 4.4 x 2.0 x 2.5 cm. The right ovary is normal in size and echotexture. Left ovary: The left ovary measures 4.0 x 2.5 x 1.8 cm. The left ovary is normal in size and echotexture. Pelvic fluid: There is complex fluid in the right adnexa. US/US pelvic and transvaginal IMPRESSION: Complex fluid in the right adnexa. Otherwise unremarkable pelvic ultrasound. Electronically signed by: Hill Berman MD 06/01/2025 12:22 PM EDT
[2025-06-01 02:33] LABS: Hematocrit 39.2 % (37.0-47.0); Hemoglobin 14.2 g/dl (12.0-16.0); Imm Gran Abs Auto 0.02 X10*3/uL (0.00-0.03); Imm Gran Pct Auto 0.2 % (0.0-0.4); Lymphocytes Absolute Auto 2.2 X10*3/uL (1.2-4.9); MANUAL DIFF FLAG NO; Mean Corpuscular HGB Conc 36.2 g/dl (31.0-35.0); Mean Corpuscular Hemoglobin 32.6 pg (27.0-33.0); Mean Corpuscular Volume 89.9 fL (80.0-98.0); NRBC Abs Auto 0.000 X10*3/uL (0.0-0.012); NRBC Pct Auto 0.0 /100WBC (0.0-0.2); Platelet Count 126 X10*3/uL (160-400); Red Blood Count 4.36 X10*6/uL (4.20-5.50); White Blood Count 10.5 X10*3/uL (4.8-10.8)
--- OUTSIDE RECORDS SUMMARY | 2025-06-01 02:44 | XMS_ITS | Encounter Summary ---
Author Organization [facility] Address [address] [place] [address] Phone Care Team Providers Care Tobacco Grower Name Role Phone Jenny Workman CNP Primary Care Provider + [phone] Reason for Visit * Reason Comments Medication Refill Encounter Details Date Type Department Care Team ([facility] st Contact Info) Description 04/06/2025 Refill [employer] [facility] [address] [place], [place] [id number] Jenny Workman CNP 234 [facility] 7 [place] [address] [email or web address] Medication Refill Social History Tobacco Use Types Packs/Day Years Used Date Smoking Tobacco: Never Smokeless Tobacco: Never Alcohol Use Standard Drinks/Week Comments No 0 (1 standard drink = 0.6 oz pur e alcohol) Education Answer Date Recorded Are you interested in more education? Not on jocelyne e 01/30/2023 Are you concerned about learning? Not on file 01/30/2023 No 01/30/2023 No 01/30/2023 Digital Access Answer Date Recorded No 03/02/2023 No 03/02/2023 Reliable internet access at home? Not on file 03/02/2023 Device with a working camera? Not on file Intimate Partner Violence Answer Date R ecorded Are you denied basic needs s uch as food, clothing, or medical care? No 07/29/2023 In the past 12 months have y ou been in a relationship with a person who hurts, threatens, or tries to control you? No 07/29/2023 Are you denied basic needs s uch as food, clothing, or medical care? No 07/29/2023 In the past 12 months have y ou been in a relationship with a person who hurts, threatens, or tries to control you? 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 Please see medication-specific renewal instructions below. > No recent or future appts: Please review request for appropriateness. Visit Info Last visit: 02/04/2023 Kiko Montague CNP - Family Medicine [facility] > Requested f/u: Not specified Upcoming visit: None ACTIONS TAKEN BY Michelle Garcia - Refill protocol not met Allergy / Rhinitis / Urticaria Rx Protocol - hydroxyzine HCl Criteria not met; renew for up to 3 months. Visit in the past 24 months: No documented in this encounter Plan of Treatment Not on file documented as of this encounter Visit Diagnoses Diagnosis BLANCA (generalized anxiety disorder) Generalized anxiety disorder documented in this encounter Care Teams Tobacco Grower Relationship Specialty Start Date End Date Jenny Workman CNP [address] [place] [address], [address] [place] [address] [email or web address] PCP - General Nurse Practitioner 08/11/23 documented as of this encounter Additional Source Comments The information contained in this document represents components of the legal health record. It is not the complete legal health record.[facility]
--- OUTSIDE RECORDS SUMMARY | 2025-06-01 02:44 | XMS_ITS | Encounter Summary ---
Author Organization [facility] Address [address] [address] Phone Care Team Providers Care Practical Nursing Instructor Name Role Phone Munira Varela Marilu BILLET BED OPERATOR Primary Care Provider [phone] Jacinta Jenny BILLET BED OPERATOR Primary Care Provider [phone] Encounter Details Date Type Department Care Team (Late st Contact Info) Description 07/29/2023 Procedure Pass [facility], Ct Scan - [facility] [address] [place] [address] Social History Tobacco Use Types Packs/Day Years [...] on file documented as of this encounter Functional Status * Calculated C-SSRS Risk Score (Lifetime/Recent) Answer Date of Assessment Author No Risk Indicated 07/29/2023 1:58 PM EDT Krissy Oneill RN * [place] Suicide Severity Rating Scale (Screener/Recent Self-Report) Question Answer Date of Assessment Author 1. Wish to be (Past 1 Month) No 023 1:58 PM EDT Krissy Oneill RN 2. Non-Specific Active Suici mercedes Thoughts (Past 1 Month) No 07/29/2023 1:58 PM EDT Jerome Oneill RN 6. Suicidal Behavior (Lifetime) No 1:58 PM EDT Krissy Oneill RN documented as of this encounter Plan of Treatment Not on file documented as of this encounter Visit Diagnoses Not on filedocumented in this encounter Care Teams Practical Nursing Instructor Relationship Specialty Start Date End Date Munira Varela CNP [address] [place] [address], [address] [place] [address] PCP - General Nurse Practitioner 02/03/23 08/10/23 Jenny Workman CNP [address] [place] [address] 7 [place] [address] PCP - General Nurse Practitioner 08/11/23 documented as of this encounter Additional Source Comments The information contained in this document represents components of the legal health record. It is not the complete legal health record.[facility]
--- OUTSIDE RECORDS SUMMARY | 2025-06-01 02:44 | XMS_ITS | Encounter Summary ---
Author Organization [facility] Address [address] [address] Phone Care Team Providers Care Aircraft Systems Repairer Name Role Phone Munira Varela Marilu BASKET HAND BRAIDER Primary Care Provider [phone] Jacinta Jenny BASKET HAND BRAIDER Primary Care Provider [phone] Encounter Details Date Type Department Care Team (Late st Contact Info) Description 07/29/2023 Procedure Pass [facility], Ct Scan - [facility] [address] [place] [address] Social History Tobacco Use Types Packs/Day Years [...] 1:58 PM EDT Krissy Oneill RN * [place] Suicide Severity Rating Scale (Screener/Recent Self-Report) Question [...] on filedocumented in this encounter Care Teams Aircraft Systems Repairer Relationship Specialty Start Date End Date Munira Varela CNP [address] [place] [address], [address] [place] [address] PCP - General Nurse Practitioner 02/03/23 08/10/23 Jenny Workman CNP [address] [place] [address] 7 [place] [address] PCP - General Nurse Practitioner 08/11/23 documented as of this encounter Additional Source Comments The information contained in this document represents components of the legal health record. It is not the complete legal health record.[facility]
--- OUTSIDE RECORDS SUMMARY | 2025-06-01 02:44 | XMS_ITS | Encounter Summary ---
Author Organization [facility] Address [address] [address] Phone Care Team Providers Care Audit Consultant Name Role Phone Munira Varela Marilu GUSSET MAKER Primary Care Provider [phone] Jacinta Jenny GUSSET MAKER Primary Care Provider [phone] Encounter Details Date Type Department Care Team (Late st Contact Info) Description 07/29/2023 Procedure Pass [facility], Ct Scan - [facility] [address] [place] [address] Social History Tobacco Use Types Packs/Day Years [...] 1:58 PM EDT Krissy Oneill RN * [place] Suicide Severity Rating Scale (Screener/Recent Self-Report) Question [...] on filedocumented in this encounter Care Teams Audit Consultant Relationship Specialty Start Date End Date Munira Varela CNP [address] [place] [address], [address] [place] [address] PCP - General Nurse Practitioner 02/03/23 08/10/23 Jenny Workman CNP [address] [place] [address] 7 [place] [address] PCP - General Nurse Practitioner 08/11/23 documented as of this encounter Additional Source Comments The information contained in this document represents components of the legal health record. It is not the complete legal health record.[facility]
--- OUTSIDE RECORDS SUMMARY | 2025-06-01 02:44 | XMS_ITS | Encounter Summary ---
Author Organization [facility] Address [address] [address] Phone Care Team Providers Care Public Transit Trolley Driver Name Role Phone Munira Varela Marilu ACADEMIC ADVISOR Primary Care Provider [phone]- [phone] Jacinta Jenny ACADEMIC ADVISOR Primary Care Provider [phone] Encounter Details Date Type Department Care Team (Late st Contact Info) Description 07/29/2023 Procedure Pass [facility], Ct Scan - [facility] [address] [place] [address] Social History Tobacco Use Types Packs/Day Years [...] 1:58 PM EDT Krissy Oneill RN * [place] Suicide Severity Rating Scale (Screener/Recent Self-Report) Question [...] on filedocumented in this encounter Care Teams Public Transit Trolley Driver Relationship Specialty Start Date End Date Munira Varela CNP [address] [place] [address], [address] [place] [address] PCP - General Nurse Practitioner 02/03/23 08/10/23 Jenny Workman CNP [address] [place] [address] 7 [place] [address] PCP - General Nurse Practitioner 08/11/23 documented as of this encounter Additional Source Comments The information contained in this document represents components of the legal health record. It is not the complete legal health record.[facility]
--- OUTSIDE RECORDS SUMMARY | 2025-06-01 02:44 | XMS_ITS | Encounter Summary ---
Author Organization [facility] Address [address] [facility] [address] [place] [address] Phone Care Team Providers Care Collating Machine Operator Name Role Phone Munira Varela CNP Primary Care Provider [phone]- [phone] Munira Varela CNP Primary Care Provider + [phone] Jenny Workman CNP Primary Care Provider [phone]- [phone] Encounter Details Date Type Department Care Team ([facility] st Contact Info) Description 07/12/2021 Telephone [employer] Organization Medical [facility] [address] [place] [address] Munira Varela CNP [address] [address] [email or web address] Social History Tobacco Use Types Packs/Day Years Used Date Smoking Tobacco: Never Smokeless Tobacco: Never Alcohol Use Standard Drinks/Week Comments No 0 (1 standard drink = 0.6 oz pur e alcohol) Comments No Sex and Gender Information Value Date Recorded Sex Assigned at Not on file Legal Sex Female 8:46 PM EDT Gender Identity Not on file Sexual Orientation Not on file 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 Not on file Not on file Not on file documented as of this encounter Plan of Treatment Not on file documented as of this encounter Visit Diagnoses Not on filedocumented in this encounter Care Teams Collating Machine Operator Relationship Specialty Start Date End Date Munira Varela CNP 15 [facility], [address] [place] [address] [email or web address] PCP - General Family Medicine 05/08/21 02/02/23 Munira Varela CNP 15 [facility], 2nd [place] [address] [email or web address] PCP - General Nurse Practitioner 02/03/23 08/10/23 Jenny Workman CNP [address] [place] [address], [address] [place] [address] [email or web address] PCP - General Nurse Practitioner 08/11/23 documented as of this encounter Additional Source Comments The information contained in this document represents components of the legal health record. It is not the complete legal health record.[facility]
--- OUTSIDE RECORDS SUMMARY | 2025-06-01 02:44 | XMS_ITS | Encounter Summary ---
Author Organization [facility] Address [address] [address] Phone Care Team Providers Care Data Recovery Planner Name Role Phone Munira Varela Mairlu TOOL AND DIE MAKER APPRENTICE Primary Care Provider [phone]- [phone] Jacinta Jenny TOOL AND DIE MAKER APPRENTICE Primary Care Provider [phone] Encounter Details Date Type Department Care Team (Late st Contact Info) Description 07/29/2023 Procedure Pass [facility], Ct Scan - [facility] [address] [place] [address] Social History Tobacco Use Types Packs/Day Years [...] 1:58 PM EDT Krissy Oneill RN * [place] Suicide Severity Rating Scale (Screener/Recent Self-Report) Question [...] on filedocumented in this encounter Care Teams Data Recovery Planner Relationship Specialty Start Date End Date Munira Varela CNP [address] [place] [address], [address] [place] [address] PCP - General Nurse Practitioner 02/03/23 08/10/23 Jenny Workman CNP [address] [place] [address] 7 [place] [address] PCP - General Nurse Practitioner 08/11/23 documented as of this encounter Additional Source Comments The information contained in this document represents components of the legal health record. It is not the complete legal health record.[facility]
--- OUTSIDE RECORDS SUMMARY | 2025-06-01 02:44 | XMS_ITS | Clinical Summary ---
Author Organization [facility] Address [address] [place] [phone] Phone Care Team Providers Care Fish Cleaner Machine Tender Name Role Phone Bernie Workmanyong LINDA Primary Care Provider Allergies No known active allergies Medications fluconazole (DIFLUCAN) 150 MG tabletIndication s:Yeast infection Take one tablet today and repeat second dose if not better after three days. 2 tablet 01/13/2024 Active sertraline (ZOLOFT) 25 MG tabletIndication s:BLANCA (generalized anxiety disorder),Modera te episode of recurrent major depressive disorder TAKE 1 TABLET BY MOUTH DAILY WITH 100MG DOSE 90 tablet 1 07/28/2024 Active sertraline (ZOLOFT) 100 MG tabletIndication s:BLANCA (generalized anxiety disorder),Modera te episode of recurrent major depressive disorder TAKE 1 TABLET BY MOUTH EVERY DAY 90 tablet 1 07/29/2024 Active hydrOXYzine (ATARAX) 50 MG tabletIndication s:BLANCA (generalized anxiety disorder) TAKE 1 TABLET BY MOUTH EVERY 8 HOURS NEEDED 30 tablet 04/10/2025 Active Active Problems Problem Noted Date Diagnosed Date Annual physical exam 01/08/2024 control counseling 01/08/2024 Assessment & Plan (01/08/2024 3:36 PM EDT): An intrauterine device or IUD is a small T-shaped plastic device that is placed in the uterus for long-acting contraception. The Mirena or Kylenna contain levonorgestrel which is a progesterone only hormone. It works by thickening the cervical mucus which then slows the transport of the ovum through the fallopian tube and inhibits sperm motility and function. They are good for 5 years. Although new studies have shown that they are good for 6 years. This form of BC can decrease blood loss and dysmenorrhea during menses. In some women it completely stops their period. SE includes irregular bleeding or spotting for the first few months and/or absence or decrease in bleeding. There is a risk of expulsion of 2%-10% within the first year. We can place the IUD in the office. During placement procedure you may experience some cramping. There is a risk of perforating the uterus during insertion. However we measure the size of the uterus prior to inserting the IUD to avoid that risk. There is also a risk of infection. This procedure is performed in a sterile manner to avoid the risk of infection. You should use condoms for 7 days after insertion. The IUD does not protect against STI. All questions were answered. -IUD info pamphlet given Vitamin D deficiency 06/05/2021 Allergic rhinitis 05/02/2021 Moderate episode of recurrent major depressive d isorder 05/02/2021 Assessment & Plan (09/08/2022 1:33 PM EST): Continue sertraline 125 mg Assessment & Plan (06/26/2022 1:24 PM EDT): Doing well on sertraline Assessment & Plan (07/09/2021 6:46 PM EDT): Recommend she resume therapy and in fact suggested [facility] referral. She declines. Recommend increase sertraline to 50 mg & FU in 2 weeks. She expressed sense of futility regarding further care. I expressed concern for her and hope that she elects to continue outpatient care. She denies SI. Assessment & Plan (05/02/2021 10:46 AM EDT): Start sertraline & referred to therapy FU 1 week BLANCA (generalized anxiety disorder) 05/02/2021 Assessment & Plan (02/04/2023 5:08 PM EDT): Well managed on sertraline, would like to go back on her hydroxyzine. Prescription refilled today. Assessment & Plan (09/08/2022 1:33 PM EST): Continue sertraline 125 mg Assessment & Plan (06/26/2022 1:24 PM EDT): Increase sertraline to 125 mg. Continue therapy Assessment & Plan (08/21/2021 10:06 AM EST): Increase sertraline to 75 mg. FU 3 mos, sooner if problems Assessment & Plan (05/22/2021 12:58 PM EDT): Increase sertraline to 37.5 mg. FU 2 weeks Assessment & Plan (05/15/2021 6:34 PM EDT): Continue current doses. FU 1 week Assessment & Plan (05/08/2021 1:30 PM EDT): Increase sertraline to 25 mg Assessment & Plan (05/02/2021 10:45 AM EDT): Start sertraline,very low dose due to concerns about side effects with plan to titrate up Given rx for hydroxyzine for acute anxiety Mixed obsessional thoughts and acts 05/02/2021 Overview (05/22/2021): CBT at [facility] Assessment & Plan (06/26/2022 1:24 PM EDT): Continue therapy. Increase sertraline from 100 mg to 125 mg. Follow-up in 3 months. Assessment & Plan (07/09/2021 6:45 PM EDT): I recommend that she continue cognitive behavioral therapy as part of the evidenced based treatment of OCD. Assessment & Plan (05/22/2021 12:57 PM EDT): Increase sertraline to 37.5 mg. FU 2 weeks Assessment & Plan (05/15/2021 6:33 PM EDT): Continue sertraline 25 mg. Use hydroxyzine as needed. Awaiting CBT appt Assessment & Plan (05/08/2021 1:35 PM EDT): Increase sertraline to 25 mg Fu 1 week Assessment & Plan (05/02/2021 10:43 AM EDT): Recommend Cognitive Behavioral Therapy Start SSRI Anorexia nervosa, binge-eating purging type 04/05 Assessment & Plan (02/04/2023 5:11 PM EDT): We did discuss vital signs and weight checks. She is agreeable to other vital signs, will also get lab work or other testing as needed to ensure her health. She is requesting to not have weight checks if they are not pertinent to current care. We did discuss reasons that weight checks would be indicated, to include medications, clinic concerns about weight loss and monitoring, and other situations that may arise. She is aware and agreeable to blind weight checks if indicated by current therapy. She has discussed this with her therapist, Lurdes Galvez, who she reports agrees with this. Assessment & Plan (09/08/2022 1:33 PM EST): Encouraged eating disorder treatment program. Discussed importance of vital sign monitoring, which includes wt checks, which can be blind. Asked her to make a plan w her therapist about coping w the stress of wt checks. Assessment & Plan (06/26/2022 1:23 PM EDT): Discussed importance of normalized eating during the day. Confirmed that restriction typically trigger binges. Encouraged her again to work with a nickel plant operator. I do think she would benefit from a meal plan. Assessment & Plan (08/21/2021 10:07 AM EST): Encouragement given. Again discussed seeing RD. She will consider Assessment & Plan (06/05/2021 10:01 AM EDT): Offered support & referral to [facility]. She declines Assessment & Plan (05/22/2021 12:58 PM EDT): OCD contributes heavily. She states she would eat 3 meals per day if they were take out . Difficulty preparing foods at home due to contamination fear. Food choices lack diversity. Urged to call nickel plant operator Assessment & Plan (05/15/2021 6:33 PM EDT): Given contact info for RDs. We agree to get labs next visit. Asked her to add back another meal daily- early lunch before work Assessment & Plan (05/08/2021 1:30 PM EDT): titrating up SSRI & waiting for her to see therapist, then will reassess need for [facility] for ED Assessment & Plan (05/02/2021 10:45 AM EDT): Associated with OCD Recommend therapy Discuss RD next visit Start SSRI Dysmenorrhea 11/10/2019 Dyspareunia, female 11/10/2019 Assessment & Plan (11/10/2019 2:16 PM EST): I explained that her symptoms may be due to endometriosis. She is doing relatively well with the Nexplanon in place for now. I reviewed the options of continued expectant management with Nexplanon, additional progestin treatment with Aygestin or even the option of laparoscopy for definitive diagnosis. I reviewed the risks and benefits of each and she has opted for expectant management for now. Abdominal pain 07/07/2019 Assessment & Plan (07/07/2019 6:56 PM EDT): Possible dx include ruptured cyst during sex, endometriosis, constipation (though I would not expect onset of pain with sex would be due to constipation alone. The upper abd pain more likely to be due to constipation) Explained we can get an ultrasound, explained that if this was ruptured cyst, we may not see evidence; I think it is good idea to get this as close as possible to pain episode. If there is large cyst, removal can be done; cysts can twist on blood supply or rupture Recurrent cysts are possbile, even if someone is on ovarian suppression with nexplanon Explained that endometriosis not seen on u/s unless it has formed a cyst on ovary, so laparoscopy can be done to assess for this possible dx Encounters Date Type Department Care Team Description 04/07/2025 Orders Only [facility] - Virtual Department [address] [place] [phone] Christopher Paredes MD 04/06/2025 Refill [facility] [address] [place] [address] Dereck Lagos MD Medication Refill 04/06/2025 Refill [facility] [address] [place] [address] Jenny Workman CNP Medication Refill from Last 3 Months Immunizations Immunization Administration Dates Next Due COVID-19 (Pre-07/27) Moderna Vaccine, mRNA, PF 11/16/2020,10/19/2020 DTaP 10/22/2005, 3,2001,08/10,2001 HPV,quadrivalent 01/19/2015,12/06/2012, 3 Hepatitis B 01/25/2002,2001,2001 Hib, unspecified formulation 08/18/2002, 2001,2001,06/29 IPV 10/22/2005, 2,2001,06/29 Influenza Quadrivalent Prese rvative Free IM 06/26/2022 MMR 10/22/2005,08/18/2002 Meningococcal MCV4P 10/29/2018 Pneumococcal, Unspecified Formulation 2001 ,2001,2001 Rabies Diploid Cell Culture 04/10/2022, 2,03/31/2022 Rabies Immune Globulin 03/27/2022 Td (adult),2 Lf Tetanus Toxo id, PF, Adsorbed 02/04/2023 Tdap 11/02/2012 Varicella 12/06/2012,08/14/2010 Family History Medical History Relation Comments No Known Problems Father No Known Problems Mother Drug abuse Paternal Grandfather Arthritis Paternal Grandmother Relation Status Comments Brother 1 Alive Brother 2 Alive Brother 3 Alive Brother 4 Alive Brother 5 Alive Father Alive Maternal Grandfather Alive Maternal Grandmother Alive Mother Alive Paternal Grandfather Paternal Grandmother Alive Social History Tobacco Use Types Packs/Day Years Used Date Smoking Tobacco: Never Smokeless Tobacco: Never Tobacco Cessation:Counseling Given: Not Answered Alcohol Use Standard Drinks/Week Comments No 0 [...] file Not on file Not on file Last Filed Vital Signs Vital Sign Reading Time Taken Comments Blood Pressure 110/74 01/08/2024 3:15 PM EDT Pulse 60 07/29/2023 7:40 PM EDT Temperature 36.7 C (98 F) 07/29/2023 1:59 PM EDT Respiratory Rate 18 07/29/2023 1:59 PM EDT Oxygen Saturation 99% 07/29/2023 8:30 PM EDT Inhaled Oxygen Concentration - - Weight 56.7 kg (125 lb) 01/08/2024 3:15 PM EDT Height 154.9 cm (5' 0.98 ) 01/08/2024 3:15 PM ED T Body Mass Index 23.63 01/08/2024 3:15 PM EDT Plan of Treatment Health Maintenance Due Date Last Done Comments DEPRESSION SCREENING 2013 SMOKING Hx and SMOKELESS TOBACCO SCREENING 2014 COVID-19 VACCINE ( season) 2024 08/12/2021, 11/16/2020, 10/19/2020 CHLAMYDIA SCREENING 01/07/2025 01/08/2024, 07/26/2021, 03/13/2021, Additional history exists INFLUENZA VACCINE (#1) 2025 06/26/2022 PAP SMEAR 01/07/2027 01/08/2024 Adult Td,Tdap Booster 02/04/2033 02/04/2023, 013 PNEUMOCOCCAL VACCINES (0-49 years) Aged Out 2001, 2001, 2001 No longer eligible based on patient's age to complete this topic HIB VACCINES Completed 08/18/2002, 11/05, 2001, Additional history exists HPV VACCINES Completed 01/19/2015, 01/2013, 11/02/2012 MENINGOCOCCAL VACCINES (ACWY) Completed 10/29/2018 HEPATITIS C SCREENING Completed 03/13/2021 , 03/26/2020, 06/24/2019 HIV ONE-TIME SCREENING (18-65 YEARS) Completed 01/08/2024 HEPATITIS A VACCINES Aged Out No long er eligible based on patient's age to complete this topic MENINGOCOCCAL VACCINES (B) Aged Out N o longer eligible based on patient's age to complete this topic Medical Devices Not on file Procedures Procedure Name Priority Date/Time Associated Diagnosis Comments CHLAMYDIA TRACHOMATIS AND NEISSERIA GONORRHOEAE NUCLEIC ACID DETECTION Routine 01/08/2024 3:32 PM EDT Annual physical exam PAP TEST Routine 01/08/2024 12:00 AM EDT HEPATITIS C ANTIBODY, QUALITATIVE Routine 03/13/2021 3:53 PM EDT Screening for STD (sexually transmitted disease) from Last 3 Months or Most Recently Relevant to Health Maintenance Results * Chlamydia Trachomatis and Neisseria Gonorrhoeae Nucleic Acid Detection (01/08/2024 3:32 PM EDT) CHLAMYDIA TRACHOMATIS Not Detected Not Detected [facility] NEISERIA GONORRHOEAE Not Detected Not Detected [facility] SPECIMEN TYPE ENDOCERVICAL TOOL AND FIXTURE REPAIRER [facility] Other (Endocervical) 01/08/2024 3:32 PM EDT 01/08/2024 6:44 PM EDT Mejia Rucker CNM NON CULTURE MICROBIOLOGY Fin al Result Performing Organization Address City/State/[facility] Co de Phone Number [address] [address] * Pap Test (01/08/2024 12:00 AM EDT) 01/08/2024 01/11/2024 9:2 5 AM EDT Narrative SEE NARRATIVE - 01/15/2024 2:40 PM EDT [address] [phone] Social Media Campaign Manager: Reva Walden MD AUTOMOTIVE SERVICE PROFESSIONAL Cytology Report FINAL DIAGNOSIS A. PAP SMEAR (SUREPATH) CE: SPECIMEN ADEQUACY: Satisfactory for evaluation; transformation zone present. INTERPRETATION: NEGATIVE FOR INTRAEPITHELIAL LESION OR MALIGNANCY. Parakeratosis Electronically Signed Out By: MD Yashira Javier CT(ASCP) By his/her signature above, the pathologist listed as making the Final Diagnosis certifies that he/she has personally reviewed this case and confirmed or corrected the diagnosis. The Pap test is a screening test primarily for squamous cancers and precursors and has associated false-negative and false-positive results. New technologies such as liquid-based preparations may decrease but will not eliminate all false-negative results. Regular sampling and follow-up of unexplained clinical signs and symptoms are recommended to minimize false negative results. CLINICAL HISTORY Date of Last Menstrual Period: Not Provided Menstrual History: Unknown Other Clinical Conditions: Screening Pap SPECIMEN SOURCE A: PAP SMEAR (SUREPATH) CE Patient Name: MAGNOLIA MELGOZA : 2000 (Age: 23) Sex: F Institution: [facility] Location: [facility] Date of Collection: 01/08/2024 Date of Reported: 01/15/2024 14:40 Results to: Mejia Rucker CNM us Bassemkathy Chaim ALONZOM CYTOLOGY ORDERABLES Final Re sult SEE NARRATIVE * Hepatitis C antibody, qualitative (03/13/2021 3:53 PM EDT) HCV NON-REACTIV E NON-REACTI VE [facility] Blood 03/13/2021 3:53 PM EDT 03/13/2021 3:54 PM EDT us Dereck Lagos MD LAB BLOOD ORDERABLES Final Re sult Performing Organization Address City/[facility]/ZIP Co de Phone Number [facility] [address] [place] [address] from Last 3 Months or Most Recently Relevant to Health Maintenance Insurance O [facility] [address] [place], [place] [address]O [facility] [address] [place] [address] [place] [address] [facility] Care Teams Fish Cleaner Machine Tender Relationship Specialty Start Date End Date Jenny Workman CNP [address] [place] [address], [address] [place] [address] [email or web address] PCP - General Nurse Practitioner 08/11/23 Additional Source Comments The information contained in this document represents components of the legal health record. It is not the complete legal health record.[facility]
[2025-06-01 02:54] LABS: Alanine Aminotransferase 20 U/L (0-31); Albumin Level 3.7 g/dL (3.5-5.0); Alkaline Phosphatase 93 U/L (39-117); Anion Gap 14 (12-20); Aspartate Amino Transferase 34 U/L (5-31); Blood Urea Nitrogen 4 mg/dL (9-16); Calcium 9.1 mg/dL (8.4-10.2); Carbon Dioxide 27 mmol/L (22-29); Chloride 100 mmol/L (96-108); Creatinine Clr Calc Pharmacy 119.0; Estimated Glomerular Filt Rate > 60; Lipase 110 U/L (8-78); Potassium 3.2 mmol/L (3.3-5.1); Sodium 138 mmol/L (135-145); Total Protein 6.4 g/dL (6.5-8.0)
[2025-06-01] MEDS: Potassium Chloride/H20 10 MEQ/100 ML PIGGYBACK 100 MEQ IV (04:02)
[2025-06-01] MEDS: Potassium Chloride Packet 20 MEQ PACKET 40 MEQ PO (04:02)
--- NOTE | 2025-06-01 04:15 | ED.ABDPAIN ---
HPI - Abdominal Pain General Chief Complaint: Abdominal Pain Stated Complaint: Abdominal Pain Time Seen by Provider: 06/01/25 03:25 Source: patient and family Mode of arrival: ambulatory Limitations: no limitations History of Present Illness ED Provider: DR. Pierson HPI narrative: 25-year-old female with past medical history significant for depression, eating disorder (anorexia nervosa/bingeing and purging) daily marijuana use, alcohol use, alcoholic pancreatitis, patient admitted to drinking hard liquor for the last 3-4 days now is complaining of epigastric abdominal pain and nausea and vomiting similar to her previous presentation of pancreatitis. No diarrhea, no blood in the stool, no dysuria, no frequency urination, no chest pain. Related Data Home Medications ?Medication ?Instructions ?Recorded ?Confirmed acetaminophen 325 mg tablet 325 mg PO QID PRN Pain 02/28/25 02/28/25 sertraline 100 mg tablet 100 mg PO DAILY 02/28/25 02/28/25 sertraline 25 mg tablet 50 mg PO DAILY 02/28/25 02/28/25 Previous Rx's ?Medication ?Instructions ?Recorded metoprolol succinate 25 mg 25 mg PO DAILY #90 tabs 03/07/25 tablet,extended release 24 hr ondansetron 4 mg disintegrating 4 mg PO Q8H PRN nausea and 03/07/25 tablet vomiting #20 tabs Allergies Allergy/AdvReac Type Severity Reaction Status Date / Time No Known Allergies Allergy Verified 06/01/25 02:19 Review of Systems Review of Systems All other systems are reviewed and are negative Constitutional: Reports as per HPI and Reports no additional constitutional complaints Eyes: Reports as per HPI and Reports no additional eye complaints Reports system reviewed and no additional complaints, except as documented Cardiovascular: Reports as per HPI and Reports no additional cardiovascular complaints Respiratory: Reports as per HPI and Reports no additional respiratory complaints Gastrointestinal: Reports as per HPI and Reports no additional gastrointestinal complaints Genitourinary: Reports no additional female genitourinary complaints Musculoskeletal: Reports no additional musculoskeletal complaints Skin/Breast: Reports system reviewed and no additional complaints, except as docu Psychiatric: Reports no additional psychiatric complaints Endocrine: Reports no additional endocrine complaints Hematologic/Lymphatic: Reports no additional hematologic/lymphatic complaints Allergic/Immunologic: Reports no additional allergic/immunologic complaints Reports system reviewed and no additional complaints, except as documented and Reports Abnormal speech present [facility] Past Medical History Medical History Takotsubo cardiomyopathy Binge-eating and purging type anorexia nervosa Closed fracture of cuboid bones of both feet with routine healing Tobacco use Marijuana use Trauma in childhood Anxiety Depression Surgical History H/O foot surgery Social History Social History Household Members: None Housing: Apartment Do you presently have visiting nurse or other home services: No Alcohol intake: current Alcohol type: hard liquor Comment: For the last 2 weeks patient has been drinking 10 nips minimum per day of v Patient Tobacco Use Status: Current everyday Tobacco user Tobacco use type: Cigarette Smoked in Last 30 Days: Yes e-Cigarette/Vaping Use: Currently Using Second Hand Smoke Exposure: No Use of substances other than those prescribed or required for medical reasons: Yes Substance Use Type: Marijuana Advance Directives: No Advance Directives Information Provided: Yes Do you have a plan to hurt others: No Plan Patient : No service: No Current occupational status: employed 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 Blood pressure elevated. Heart rate normal. Respiratory rate normal. Temperature normal. Oxygen saturation normal. Appearance: Alert. Oriented X3. No acute distress. Head: Normal external exam. Normocephalic. Atraumatic. No Daniel signs noted. No raccoon eyes noted Eyes: PERRLA. EOMI. Conjunctiva and sclera normal. Eyelids normal. ENT: TM's Normal. Pharynx normal. Uvula midline. Moist mucous membranes. No trismus noted. No drooling noted. No muffled voice noted. Neck: Normal inspection. Neck supple. FROM. No adenopathy. Thyroid Normal. No meningeal signs. No neck mass noted. CVS: Normal heart rate and rhythm. Heart sound normal. No murmurs noted. Pulses normal throughout. Respiratory: No respiratory distress. Painless inspiration. Breath sounds normal. No wheezes/rales/rhonchi noted. Chest nontender. No accessory muscle usage noted or decreased air movement noted. Abdomen: Soft and nontender. Bowel sounds normal in all 4 quadrants. No distention noted. No organomegaly noted. No visible injury noted. Back: No CVA tenderness. Full range of motion noted. Skin: Skin warm and dry. Normal skin color. Normal skin turgor. No rashes/lesions/lacerations noted. Extremities: No lower extremity edema. Extremities exhibit normal range of motion. Extremities nontender. Neuro: Oriented X 3. Cranial nerve exam: II-XII are grossly intact No motor deficit. No sensory deficit. Reflexes normal. Course Reevaluation(s) Reevaluation #1: 25-year-old female history of alcoholic pancreatitis presented with abdominal pain, persistent vomiting. 1. Hypokalemia patient received oral and IV potassium. 2. CT abdomen pelvis questioning acute appendicitis case discussed with Dr. Arzate who reviewed the CAT scan who has no concern of acute appendicitis in light of normal WBCs. 3. Will admit the patient to the medical service for the acute pancreatitis. Time: 06:37 Medical Decision Making Differential Diagnosis Differential Diagnoses: The differential diagnosis associated with the presentation includes (Acute pancreatitis, complicated pancreatitis, acute colitis, acute appendicitis, electrolyte derangement, severe anemia.) Admission/Observation Consideration of admission/observation: Escalation of care including admission/observation considered Consult Healthcare Provider Management of the patient was discussed with: Hospitalist (Dr. Scott) and Mounter (Dr. Arzate) Lab Data MDM Lab Attestation statement: I reviewed the patient's lab results. 06/01/25 02:28 06/01/25 02:28 Labs: Lab Results 06/01/25 06/01/25 Range/Units 02:28 05:07 WBC 10.5 (4.8-10.8) X10*3/uL RBC 4.36 D (4.20-5.50) X10*6/uL Hgb 14.2 D (12.0-16.0) g/dl Hct 39.2 D (37.0-47.0) % MCV 89.9 (80.0-98.0) fL MCH 32.6 (27.0-33.0) pg MCHC 36.2 H (31.0-35.0) g/dl RDW 12.8 (11.0-16.0) % Plt Count 126 L D (160-400) X10*3/uL MPV 9.9 (9.4-12.3) fL Immature Gran % (Auto) 0.2 (0.0-0.4) % Neut % (Auto) 71.7 (45-73) % Lymph % (Auto) 20.9 (20-40) % [place] % (Auto) 5.3 (2-11) % Eos % (Auto) 1.7 (0-4) % Baso % (Auto) 0.2 (0-2) % Lymph # (Auto) 2.2 (1.2-4.9) X10*3/uL [place] # (Auto) 0.6 (0.1-1.2) X10*3/uL Eos # (Auto) 0.2 (0.0-0.4) X10*3/uL Baso # (Auto) 0.0 (0.0-0.2) X10*3/uL Abs Immat Gran (auto) 0.02 (0.00-0.03) X10*3/uL Absolute Neuts (auto) 7.5 (2.0-8.3) x10*3/uL Absolute Nucleated RBC 0.000 (0.0-0.012) X10*3/uL Nucleated RBC % (auto) 0.0 (0.0-0.2) /100WBC Sodium 138 (135-145) mmol/L Potassium 3.2 L (3.3-5.1) mmol/L Chloride 100 (96-108) mmol/L Carbon Dioxide 27 (22-29) mmol/L Anion Gap 14 (12-20) BUN 4 L (9-16) mg/dL Creatinine 0.55 (0.5-1.4) mg/dL Estim Creat Clear Calc 119.0 Estimated GFR > 60 Random Glucose 118 H (60-115) mg/dL Calcium 9.1 (8.4-10.2) mg/dL Total Bilirubin 0.3 (0.0-1.0) mg/dL AST 34 H (5-31) U/L ALT 20 (0-31) U/L Alkaline Phosphatase 93 (39-117) U/L Total Protein 6.4 L (6.5-8.0) g/dL Albumin 3.7 (3.5-5.0) g/dL Lipase 110 H (8-78) U/L Beta HCG, Quant < 2 mIU/mL Urine Color Yellow Urine Appearance Clear Urine pH 7.0 (5.0-9.0) Ur Specific [place] <= 1.005 (1.005-1.025) Urine Protein Negative (Neg-Trace) mg/dL Urine Glucose (UA) Negative (Negative) mg/dL Urine Ketones Negative (Negative) mg/dL Urine Blood Negative (Negative) Urine Nitrite Negative (Negative) Ur Leukocyte Esterase Negative (Negative) Ethyl Alcohol < 10 mg/dL Independent Interpretation I performed an independent interpretation of an: CT Scan (Abdomen and pelvis:There is mild stranding about the pancreas. Unclear if this reflects resolving prior pancreatitis or acute on chronic pancreatitis. The low-density lesion within the pancreatic tail most likely reflects sequelae of prior pancreatitis given appearance on most recent CT. Collin massey) Radiology Impression Discussion of test interpretation with radiology: I have reviewed the radiologist's reading. Medications Administered Discontinued Medications Generic Name Dose Route Start Last Admin Trade Name Freq PRN Reason Stop Dose Admin Al Hydroxide/Mg Hydroxide 30 ml 06/01/25 03:33 06/01/25 04:19 Magnesium Hydrox/Alum Hydrox 30 Ml Oral.Susp PO 06/01/25 03:34 30 ml ONCE ONE Administration Famotidine 20 mg 06/01/25 03:33 06/01/25 04:03 Famotidine/Pf 20 Mg/2 Ml Vial IVPUSH 06/01/25 03:34 20 mg ONCE ONE Administration Potassium Chloride 10 meq in 100 mls @ 100 mls/hr 06/01/25 03:25 06/01/25 06:03 Potassium Chloride/H20 IV 06/01/25 04:24 Infused ONCE ONE Infusion Acetaminophen 1,000 mg in 100 mls @ 400 mls/hr 06/01/25 05:17 06/01/25 06:04 Ofirmev IV 06/01/25 05:31 Infused ONCE ONE Infusion Iohexol 85 ml 06/01/25 04:59 06/01/25 05:01 Iohexol 350 Mg/Ml 100 Ml Infus..Btl IV 06/01/25 05:00 85 ml ONCE ONE Administration Ketorolac Tromethamine 15 mg 06/01/25 05:17 06/01/25 05:22 Ketorolac Tromethamine 15 Mg/Ml Vial IVPUSH 06/01/25 05:18 15 mg ONCE ONE Administration Ondansetron HCl 4 mg 06/01/25 04:08 06/01/25 04:13 Ondansetron Hcl 4 Mg/2 Ml Vial IVPUSH 06/01/25 04:09 4 mg ONCE ONE Administration Potassium Chloride 40 meq 06/01/25 03:25 06/01/25 04:02 Potassium Chloride Packet 20 Meq Packet PO 06/01/25 03:26 40 meq ONCE ONE Administration Critical Care Time Critical Care Time Critical Care Time: Yes Total Critical Care Time: 40 Attestation: The patient was critically ill with a high probability of imminent or life-threatening deterioration. I spent greater than 30 minutes of discontinuous time evaluating the patient, delivering critical care at the bedside, discussing evaluating data with consultants. Critical care time does not include time spent performing separately billable procedures or teaching. Time spent performing critical care was 40 minutes. Discharge Plan Discharge Clinical Impression: Acute hypokalemia, Alcoholic pancreatitis, Alcoholic gastritis Patient Disposition: Admitted As Inpatient
[2025-06-01] MEDS: Magnesium Hydrox/Alum Hydrox 30 ML ORAL.SUSP PO (04:19)
[2025-06-01] MEDS: iohexoL 350 MG/ML 100 ML INFUS..BTL 85 ML IV (05:01)
[2025-06-01 05:14] LABS: Appearance Urine Clear; Glucose Urine UA Negative (Negative); PH 7.0 (5.0-9.0); Specific Gravity - Urine <= 1.005 (1.005-1.025)
--- NOTE | 2025-06-01 08:32 | PM.CNGS ---
History of Present Illness Consult details Consult date: 06/01/25 <Annabelle Lei PA-C - Last Filed: 06/01/25 10:22> Reason for consult: other (enlarged appendix) <WESLEY Alvarado Last Filed: 06/01/25 10:22> Narrative: 25-year-old female with PMH significant for depression, eating disorder, daily marijuana use, alcohol use and hx of alcoholic pancreatitis who presented to the ED with complaints of epigastric abd pain. She reports the pain began three days ago. It was associated with nausea and vomiting. The pain has been worsening and she therefore came to the ED for evaluation. Work up included CBC, BMP, LFTs which was significant for a lipase of 110. CT scan abd pelvis was obtained which showed mild peripancreatic stranding, enlarged appendix without surrounding inflammatory changes and prominent right ovary with surrounding free fluid. General surgery was consulted for the enlarged appendix and possible appendicitis. She reports the pain is mostly in the epigastric region and remains there. She denies lower abd pain. She denies fevers, chills, diarrhea, constipation, sick contacts. She denies prior abdominal surgery. <Annabelle Lei PA-C - Last Filed: 06/01/25 10:22> Review of Systems Review of Systems: Yes all other systems are reviewed and are negative <Annabelle Lei PA-C - Last Filed: 06/01/25 10:22> [facility] Past Medical History Medical History: Medical History Takotsubo cardiomyopathy Binge-eating and purging type anorexia nervosa Closed fracture of cuboid bones of both feet with routine healing Tobacco use Marijuana use Trauma in childhood Anxiety Depression <WESLEY Alvarado Last Filed: 06/01/25 10:22> Surgical History Surgical History: Surgical History H/O foot surgery <WESLEY Alvarado Last Filed: 06/01/25 10:22> Social History Social History: Social History Household Members: None Housing: Apartment Do you presently have visiting nurse or other home services: No Alcohol intake: current Alcohol type: hard liquor Comment: For the last 2 weeks patient has been drinking 10 nips minimum per day of v Patient Tobacco Use Status: Never used Tobacco Tobacco use type: Cigarette Smoked in Last 30 Days: Yes e-Cigarette/Vaping Use: Currently Using Second Hand Smoke Exposure: No Use of substances other than those prescribed or required for medical reasons: Yes Substance Use Type: Marijuana Advance Directives: No Advance Directives Information Provided: Yes Do you have a plan to hurt others: No Plan Nutrition Risks: No Nutritional Risk Patient : No service: No Current occupational status: employed 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 <Annabelle Lei PA-C - Last Filed: 06/01/25 10:22> Meds Allergies/Adverse reactions: Allergies Allergy/AdvReac Type Severity Reaction Status Date / Time No Known Allergies Allergy Verified 06/01/25 02:19 <WESLEY Alvarado Last Filed: 06/01/25 10:22> Active Medications: Current Medications Acetaminophen (Acetaminophen 325 Mg Tablet) 650 mg PO Q6H PRN PRN Reason: Pain, Mild 1-3,fever,headache Calcium Carbonate (Calcium Carbonate 750 Mg Tab.Chew) 750 mg PO Q4H PRN PRN Reason: Heartburn Enoxaparin Sodium (Enoxaparin Sodium 40 Mg/0.4 Ml Syringe) 40 mg SUBCUT Q24H ROCKY Hydromorphone HCl (Hydromorphone Hcl 0.5 Mg/0.5 Ml Syringe) 0.5 mg IVPUSH Q4H PRN; Protocol PRN Reason: Pain, Severe (Pain Scale 7-10) Lactated Ringer's (Lr) 1,000 mls @ 100 mls/hr IVCONT .Q10H ROCKY Piperacillin Sod/Tazobactam (Sod 3.375 gm/ Sodium Chloride) 50 mls @ 100 mls/hr IV Q6H ROCKY Magnesium Hydroxide (Milk Of Magnesia 30 Ml Oral.Susp) 30 ml PO DAILY PRN PRN Reason: Constipation Melatonin (Melatonin 3 Mg Tablet) 6 mg PO BEDTIME PRN PRN Reason: Insomnia Sodium Chloride (0.9 % Sodium Chloride Flush 3 Ml Syringe) 3 ml IVFLUSH QSHIFT ROCKY <WESLEY Alvarado Last Filed: 06/01/25 10:22> Home medications: Home Medications ?Medication ?Instructions ?Recorded ?Confirmed ?Last Taken ?Type acetaminophen 325 mg tablet 325 mg PO QID PRN Pain 02/28/25 06/01/25 06/01/25 01:00 History sertraline 100 mg tablet 100 mg PO DAILY 02/28/25 06/01/25 06/01/25 01:00 History sertraline 25 mg tablet 25 mg PO DAILY 02/28/25 06/01/25 06/01/25 01:00 History hydroxyzine HCl 50 mg tablet 50 mg PO Q8H PRN Pain 06/01/25 06/01/25 06/01/25 01:00 History <WESLEY Alvarado Last Filed: 06/01/25 10:22> Physical Exam Vital Signs: Vital Signs: Last Vital Signs Temp 98.4 F 06/01/25 03:25 Pulse 62 06/01/25 06:00 Resp 14 06/01/25 06:00 BP 115/73 06/01/25 03:25 Pulse Ox 97 06/01/25 03:25 O2 Del Method Room Air 06/01/25 03:25 BMI result Body Mass Index 22.7 <WESLEY Alvarado Last Filed: 06/01/25 10:22> Const: General: comfortable, no acute distress and alert <WESLEY Alvarado Last Filed: 06/01/25 10:22> Orientation/consciousness: patient oriented x3 <WESLEY Alvarado Last Filed: 06/01/25 10:22> Resp: Effort & Inspection: normal respiratory effort <WESLEY Alvarado Last Filed: 06/01/25 10:22> GI: Inspection: Yes normal to inspection, No distended and No scar <WESLEY Alvarado Last Filed: 06/01/25 10:22> Palpation (GI): Soft to palpation, Tenderness to palpation present (GI) in the epigastrum (moderate) and in the RLQ (mild); with no rebound tenderness and Rovsing's sign negative, no guarding and not rigid <WESLEY Alvarado Last Filed: 06/01/25 10:22> Percussion: Yes normal to percussion <WESLEY Alvarado Last Filed: 06/01/25 10:22> Skin: General skin exam: no rashes or lesions noted and no jaundice <WESLEY Alvarado Last Filed: 06/01/25 10:22> Neuro: General: patient oriented x3 <WESLEY Alvarado Last Filed: 06/01/25 10:22> Results Labs Result diagrams: 06/01/25 02:28 06/01/25 02:28 <WESLEY Alvarado Last Filed: 06/01/25 10:22> Labs: Abnormal lab results 06/01/25 Range/Units 02:28 MCHC 36.2 H (31.0-35.0) g/dl Plt Count 126 L D (160-400) X10*3/uL Potassium 3.2 L (3.3-5.1) mmol/L BUN 4 L (9-16) mg/dL Random Glucose 118 H (60-115) mg/dL AST 34 H (5-31) U/L Total Protein 6.4 L (6.5-8.0) g/dL Lipase 110 H (8-78) U/L Short CBC 06/01/25 Range/Units 02:28 WBC 10.5 (4.8-10.8) X10*3/uL Hgb 14.2 D (12.0-16.0) g/dl Hct 39.2 D (37.0-47.0) % Plt Count 126 L D (160-400) X10*3/uL BMP 06/01/25 02:28 Sodium 138 Potassium 3.2 L Chloride 100 Carbon Dioxide 27 BUN 4 L Creatinine 0.55 Calcium 9.1 Liver Function 06/01/25 Range/Units 02:28 Total Bilirubin 0.3 (0.0-1.0) mg/dL AST 34 H (5-31) U/L ALT 20 (0-31) U/L Alkaline Phosphatase 93 (39-117) U/L Albumin 3.7 (3.5-5.0) g/dL Urine 08/28/25 Range/Units 05:07 Urine Color Yellow Urine Appearance Clear Urine pH 7.0 (5.0-9.0) Ur Specific [place] <= 1.005 (1.005-1.025) Urine Protein Negative (Neg-Trace) mg/dL Urine Glucose (UA) Negative (Negative) mg/dL All other labs normal. <Annabelle Lei PA-C - Last Filed: 06/01/25 10:22> Imaging Abdomen CT scan report/results: report reviewed and image reviewed <Annabelle Lei PA-C - Last Filed: 06/01/25 10:22> Additional studies: labs reviewed <Annabelle Lei PA-C - Last Filed: 06/01/25 10:22> Assessment and Plan (1) Alcoholic pancreatitis: Status: Acute <Annabelle Lei PA-C - Last Filed: 06/01/25 10:22> 25-year-old female with PMH significant for depression, eating disorder, daily marijuana use, alcohol use who presented with epigastric pain admitted for acute alcoholic pancreatitis. CT scan noted enlarged appendix and raised concern for possible acute appendicitis however she has a normal WBC count and no periappendiceal stranding so appendicitis is unlikely. She is tender in the RLQ however this may be ovarian in nature. Would hold off on any surgical intervention. Cont supportive measures for now. Will continue to monitor. <Annabelle Lei PA-C - Last Filed: 06/01/25 10:22> 25-year-old female with PMH significant for depression, eating disorder, daily marijuana use, alcohol use who presented with epigastric pain admitted for acute alcoholic pancreatitis. CT scan noted enlarged appendix and raised concern for possible acute appendicitis however she has a normal WBC count and no periappendiceal stranding so appendicitis is unlikely. She is tender in the RLQ however this may be ovarian in nature. Would hold off on any surgical intervention. Cont supportive measures for now. Will continue to monitor. Patient seen and examined independently and I agree with the above assessment and plan. No surgical intervention recommended at this time. <Jerrod Arzate MD - Last Filed: 06/01/25 12:56> Procedures Date of Service Date of Service: 06/01/25 <Annabelle Lei PA-C - Last Filed: 06/01/25 10:22> 06/01/25 <Jerrod Arzate MD - Last Filed: 06/01/25 12:56>
--- NOTE | 2025-06-01 08:41 | PM.IMHP ---
History of Present Illness Date of Service: 06/01/25 Attending physician on admission: Yamil Cam Chief Complaint: Abd pain Pt is a 25-year-old female with a PMH significant for?alcohol use disorder, alcoholic pancreatitis, eating disorder, PTSD, anxiety, and depression who presents to the ED with?left-sided abdominal pain wrapping around to back for the past few days. Pt was previously admitted to the hospital earlier in the year from 02/28-03/07 for with similar symptoms and found to have acute alcoholic pancreatitis. Pt reports since then she stopped drinking for some time, that began drinking again 1-2 weeks ago. Pt is vague about how much she has been drinking, but reports it is much less than before when she was drinking a ?crazy? amount of alcohol. Denies nausea or vomiting. Has been able to tolerate a small amount of food and liquids since symptom onset. No fever or chills. Denies chest pain/pressure, palpitations. In the ED pt was tachycardic up to 104 but vitals otherwise WNL. Labs were significant for potassium 3.2, AST 34, and lipase 110. Ethyl alcohol levels negative. CTA of abdomen/pelvis found mild straightening about the pancreas. Also showed possible appendicitis and an abnormal low density, mildly prominent right ovary with surrounding free fluid. Pelvic ultrasound with Doppler study showed complex fluid in the right adnexa without evidence of torsion. Pt was treated in the ED with potassium chloride p.o. and IV, famotidine, ondansetron, Maalox, acetaminophen, ketorolac, hydromorphone, and IVF. Pt is admitted to the hospital for treatment and further evaluation of acute alcohol induced pancreatitis. Review of Systems Review of Systems: Yes all other systems are reviewed and are negative [facility] Medical History Takotsubo cardiomyopathy Binge-eating and purging type anorexia nervosa Closed fracture of cuboid bones of both feet with routine healing Tobacco use Marijuana use Trauma in childhood Anxiety Depression Surgical History H/O foot surgery Social History Household Members: None Housing: Apartment Do you presently have visiting nurse or other home services: No Alcohol intake: current Alcohol type: hard liquor Comment: For the last 2 weeks patient has been drinking 10 nips minimum per day of v Patient Tobacco Use Status: Never used Tobacco Tobacco use type: Cigarette e-Cigarette/Vaping Use: Currently Using Second Hand Smoke Exposure: No Substance Use Type: Marijuana service: No Current occupational status: employed 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 [employer] Meds Allergies Allergy/AdvReac Type Severity Reaction Status Date / Time No Known Allergies Allergy Verified 06/01/25 02:19 Active Medications: Current Medications Acetaminophen (Acetaminophen 325 Mg Tablet) 650 mg PO Q6H PRN PRN Reason: Pain, Mild 1-3,fever,headache Calcium Carbonate (Calcium Carbonate 750 Mg Tab.Chew) 750 mg PO Q4H PRN PRN Reason: Heartburn Enoxaparin Sodium (Enoxaparin Sodium 40 Mg/0.4 Ml Syringe) 40 mg SUBCUT Q24H [facility] Hydromorphone HCl (Hydromorphone Hcl 0.5 Mg/0.5 Ml Syringe) 0.5 mg IVPUSH Q4H PRN; Protocol PRN Reason: Pain, Severe (Pain Scale 7-10) Lactated Ringer's (Lr) 1,000 mls @ 100 mls/hr IVCONT .Q10H [facility] Piperacillin Sod/Tazobactam (Sod 3.375 gm/ Sodium Chloride) 50 mls @ 100 mls/hr IV Q6H [facility] Magnesium Hydroxide (Milk Of Magnesia 30 Ml Oral.Susp) 30 ml PO DAILY PRN PRN Reason: Constipation Melatonin (Melatonin 3 Mg Tablet) 6 mg PO BEDTIME PRN PRN Reason: Insomnia Sodium Chloride (0.9 % Sodium Chloride Flush 3 Ml Syringe) 3 ml IVFLUSH QSHIFT [facility] Home Medications ?Medication ?Instructions ?Recorded ?Confirmed ?Last Taken ?Type acetaminophen 325 mg tablet 325 mg PO QID PRN Pain 02/28/25 06/01/25 06/01/25 01:00 History sertraline 100 mg tablet 100 mg PO DAILY 02/28/25 06/01/25 06/01/25 01:00 History sertraline 25 mg tablet 25 mg PO DAILY 02/28/25 06/01/25 06/01/25 01:00 History hydroxyzine HCl 50 mg tablet 50 mg PO Q8H PRN Pain 06/01/25 06/01/25 06/01/25 01:00 History Physical Exam Vital Signs and Narrative: Vital Signs: Last Vital Signs Temp 98.4 F 06/01/25 03:25 Pulse 62 06/01/25 06:00 Resp 14 06/01/25 06:00 BP 115/73 06/01/25 03:25 Pulse Ox 97 06/01/25 03:25 O2 Del Method Room Air 06/01/25 03:25 BMI result Body Mass Index 22.7 General: AOx3, no acute distress Resp: CTA bilaterally CVS: S1, S2, RRR GI: +BS, no distention, diffuse abd pain. Negative Chao's sign. Skin: Warm, dry Neuro: Cranial nerves II-XII grossly intact bilaterally. Motor grossly intact bilaterally Extremities: No edema Psych: Appropriate affect Results Labs 06/01/25 02:28 06/01/25 02:28 Labs: Laboratory Results - last 24 hr 06/01/25 06/01/25 02:28 05:07 MCV 89.9 MCH 32.6 MCHC 36.2 H RDW 12.8 Plt Count 126 L D MPV 9.9 Immature Gran % (Auto) 0.2 Neut % (Auto) 71.7 Lymph % (Auto) 20.9 [place] % (Auto) 5.3 Eos % (Auto) 1.7 Baso % (Auto) 0.2 Lymph # (Auto) 2.2 [place] # (Auto) 0.6 Eos # (Auto) 0.2 Baso # (Auto) 0.0 Abs Immat Gran (auto) 0.02 Absolute Neuts (auto) 7.5 Absolute Nucleated RBC 0.000 Nucleated RBC % (auto) 0.0 Anion Gap 14 Estim Creat Clear Calc 119.0 Estimated GFR > 60 Random Glucose 118 H Calcium 9.1 Total Bilirubin 0.3 AST 34 H ALT 20 Alkaline Phosphatase 93 Total Protein 6.4 L Albumin 3.7 Lipase 110 H Beta HCG, Quant < 2 Urine Color Yellow Urine Appearance Clear Urine pH 7.0 Ur Specific [place] <= 1.005 Urine Protein Negative Urine Glucose (UA) Negative Urine Ketones Negative Urine Blood Negative Urine Nitrite Negative Ur Leukocyte Esterase Negative Ethyl Alcohol < 10 Assessment and Plan (1) Alcoholic pancreatitis: Status: Acute Plan Pt is a 25-year-old female with a PMH significant for?alcohol use disorder, alcoholic pancreatitis, eating disorder, PTSD, anxiety, and depression who presents to the ED with?left-sided abdominal pain wrapping around to back for the past few days. Pt is admitted to the hospital for treatment and further evaluation of acute alcohol induced pancreatitis. Acute alcoholic pancreatitis Pt recently started read drinking after previous episode of pancreatitis in February/March of this year Will treat with IVF, analgesics for pain management, bowel rest, antiemetics Will start with clear liquid diet for now, advance as tolerated Alcohol cessation strongly encouraged Will need outpatient MRI pancreas protocol in 6-8 weeks GI following Question of appendicitis CT showing enlarged appendix possibly secondary to acute appendicitis Seen and evaluated by General surgery no no leukocytosis or periappendiceal stranding Acute appendicitis unlikely; Treat as above Discontinue Zosyn Complex adnexal cyst Pelvic ovarian Doppler U/S negative for ovarian torsion, but showed complex fluid in the right adnexa Spoke to [employer] who recommended outpatient follow up for repeat imaging in 3-6 months Chronic tachycardia Continue metoprolol Mood disorder Continue hydroxyzine, sertraline Full Code Attending:?Dr. Cam DVT Prophylaxis: Lovenox Pt will require a hospitalization of at least two nights for treatment of?acute alcoholic pancreatitis requiring bowel rest, IVF, and IV analgesics. Quality Stroke Does the patient have a stroke diagnosis?: No VTE Prior VTE?: No VTE Risk Level:: Medical - moderate - high VTE Device Contraindication: Treatment Not Indicated VTE Drug Contraindication: N/A - Med Ordered
[2025-06-01] MEDS: 0.9 % Sodium Chloride Flush 3 ML SYRINGE IVFLUSH ×3 (08:55→22:20)
[2025-06-01] MEDS: Lactated Ringers 1,000 ML 100 ML IVCONT ×2 (08:56→17:59)
--- NOTE | 2025-06-01 09:23 | P.CNGI_ITS ---
History of Present Illness Data of Consult Service Date: 06/01/25 Requesting physician: Norman Scott Primary Care Provider: Unknown Physician HPI Reason for consult: Pancreatitis This is a 25-year-old female with past medical history of alcohol use disorder that led to acute interstitial pancreatitis earlier this year complicated by stress-induced cardiomyopathy, who is returning for recurrent pancreatitis. History obtained from the patient, who states that after her admission in February, she was sober from alcohol for at least a couple of months and started drinking again in the last few weeks. She was drinking 4-5 drinks of hard liquor. Two days ago started developing abdominal pain with nausea, loss of appetite that was reminiscent of her pancreatitis pain and therefore came to the emergency room. No fevers, chills, change in bowel habits. Pain radiates to her back and left flank. Vitals with mild tachycardia with normal blood pressure. Labs with hemoconcentration and thrombocytopenia. AST 34, lipase of 110. CT abdomen independently reviewed and shows peripancreatic fatty stranding with ? cyst within the pancreatic tail. Also shows thickening in the pylorus. Patient currently reports that pain is better than what it was last admission, but she had low threshold to come to the emergency room given her prolonged her previous hospitalization was. She is well aware that going forward, there is no safe minimum for alcohol use. She was also counseled on avoiding tobacco and marijuana smoking. Review of Systems 2 Review of Systems: Yes all other systems are reviewed and are negative [facility] Past Medical History Medical History Takotsubo cardiomyopathy Binge-eating and purging type anorexia nervosa Closed fracture of cuboid bones of both feet with routine healing Tobacco use Marijuana use Trauma in childhood Anxiety Depression Surgical History Surgical History H/O foot surgery Social History Social History Household Members: None Housing: Apartment Do you presently have visiting nurse or other home services: No Alcohol intake: current Alcohol type: hard liquor Comment: For the last 2 weeks patient has been drinking 10 nips minimum per day of v Patient Tobacco Use Status: Never used Tobacco Tobacco use type: Cigarette Smoked in Last 30 Days: Yes e-Cigarette/Vaping Use: Currently Using Second Hand Smoke Exposure: No Use of substances other than those prescribed or required for medical reasons: Yes Substance Use Type: Marijuana Advance Directives: No Advance Directives Information Provided: Yes Do you have a plan to hurt others: No Plan Nutrition Risks: No Nutritional Risk Patient : No service: No Current occupational status: employed 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 Meds Allergies Allergy/AdvReac Type Severity Reaction Status Date / Time No Known Allergies Allergy Verified 06/01/25 02:19 Active Medications: Current Medications Acetaminophen (Acetaminophen 325 Mg Tablet) 650 mg PO Q6H PRN PRN Reason: Pain, Mild 1-3,fever,headache Calcium Carbonate (Calcium Carbonate 750 Mg Tab.Chew) 750 mg PO Q4H PRN PRN Reason: Heartburn Enoxaparin Sodium (Enoxaparin Sodium 40 Mg/0.4 Ml Syringe) 40 mg SUBCUT Q24H [facility] Last Admin: 06/01/25 08:55 Dose: 40 mg Hydromorphone HCl (Hydromorphone Hcl 0.5 Mg/0.5 Ml Syringe) 0.5 mg IVPUSH Q4H PRN; Protocol PRN Reason: Pain, Severe (Pain Scale 7-10) Last Admin: 06/01/25 08:55 Dose: 0.5 mg Lactated Ringer's (Lr) 1,000 mls @ 100 mls/hr IVCONT .Q10H [facility] Last Admin: 06/01/25 08:56 Dose: 100 mls/hr Piperacillin Sod/Tazobactam (Sod 3.375 gm/ Sodium Chloride) 50 mls @ 100 mls/hr IV Q6H [facility] Last Admin: 06/01/25 08:56 Dose: 100 mls/hr Magnesium Hydroxide (Milk Of Magnesia 30 Ml Oral.Susp) 30 ml PO DAILY PRN PRN Reason: Constipation Melatonin (Melatonin 3 Mg Tablet) 6 mg PO BEDTIME PRN PRN Reason: Insomnia Sodium Chloride (0.9 % Sodium Chloride Flush 3 Ml Syringe) 3 ml IVFLUSH QSHIFT [facility] Last Admin: 06/01/25 08:55 Dose: 3 ml Home Medications ?Medication ?Instructions ?Recorded ?Confirmed ?Last Taken ?Type acetaminophen 325 mg tablet 325 mg PO QID PRN Pain 06/01/25 06/01/25 01:00 History sertraline 100 mg tablet 100 mg PO DAILY 02/28/2506/01/25 01:00 History sertraline 25 mg tablet 25 mg PO DAILY 02/28/25 08/05/2906/01/25 01:00 History hydroxyzine HCl 50 mg tablet 50 mg PO Q8H PRN Pain 06/01/25 06/01/25 01:00 History Physical Exam 2 Exam: Exam: Young female Accompanied by her fiance Nonicteric Abdomen soft, tender in the epigastrium with guarding, no rebound No lower extremity edema No overt respiratory distress Vital Signs: Vital Signs: Last Vital Signs Temp 98.3 F 06/01/25 08:52 Pulse 49 L 06/01/25 08:52 Resp 18 06/01/25 08:55 BP 112/65 06/01/25 08:52 Pulse Ox 97 06/01/25 08:52 O2 Del Method Room Air 06/01/25 08:52 BMI result Body Mass Index 22.7 Results Labs 06/01/25 02:28 06/01/25 02:28 Labs: Short CBC 06/01/25 Range/Units 02:28 WBC 10.5 (4.8-10.8) X10*3/uL Hgb 14.2 D (12.0-16.0) g/dl Hct 39.2 D (37.0-47.0) % Plt Count 126 L D (160-400) X10*3/uL BMP 06/01/25 02:28 Sodium 138 Potassium 3.2 L Chloride 100 Carbon Dioxide 27 BUN 4 L Creatinine 0.55 Calcium 9.1 Liver Function 06/01/25 Range/Units 02:28 Total Bilirubin 0.3 (0.0-1.0) mg/dL AST 34 H (5-31) U/L ALT 20 (0-31) U/L Alkaline Phosphatase 93 (39-117) U/L Albumin 3.7 (3.5-5.0) g/dL Urine 06/01/25 Range/Units 05:07 Urine Color Yellow Urine Appearance Clear Urine pH 7.0 (5.0-9.0) Ur Specific [place] <= 1.005 (1.005-1.025) Urine Protein Negative (Neg-Trace) mg/dL Urine Glucose (UA) Negative (Negative) mg/dL Assessment and Plan (1) Alcoholic pancreatitis: Status: Acute (2) Tobacco use: Status: Acute (3) Alcohol use disorder: Status: Acute (4) Thrombocytopenia: Status: Acute Plan Patient with recurrent mild acute interstitial pancreatitis in the setting of relapse to alcohol use. Currently reports pain is tolerable with current pain management. Eager to try clear liquids. She is aware regarding strict alcohol abstinence in the future. She was also counseled on tobacco and marijuana abstinence. Plan: -can start clear liquid diet -if unable to progress to low-fat diet in 24-48 hours, should get repeat contrasted CT scan -serial abdominal exam -will need outpatient MRI pancreas protocol in 6-8 weeks -thrombocytopenia likely in the setting of active alcohol use, but underlying liver function can be reassessed after sobriety for 3-6 months Thank you for allowing me to participate in her care. Please do not hesitate to reach out for any questions or concerns. Procedures Date of Service Date of Service: 06/01/25
--- NOTE | 2025-06-01 10:19 | PHA.MEDREC ---
Pharmacy Consult ? Medication Reconciliation Pharmacy has completed the medication reconciliation. Patient knew medications and said took medications 1 am 06/01
--- NOTE | 2025-06-01 10:27 | PC.NURSE ---
Resumed care of patient at 0700, she was with night nurse, obtaining cultures. IVF and antibiotics started. pt in agreement with admit, PRN pain medications given with good effect, pt has been sleeping since administration. Pt significant other remains at bedside. Pt reporting she had stopped drinking and was feeling better but has had a lapse and last drank yesterday. No nausea or vomiting at this time, pain noted prior to medications given in lower abd. Pt reporting pain increases when she needs to urinate d/t pressure. Call canchola within reach, awaiting bed assignment at this time.
--- NOTE | 2025-06-01 10:50 | PC.NURSE ---
This RN reached out to covering provider to assess if they wanted to order a US as it was adviced on CT however has not been ordered or obtained. No new orders at this time.
--- NOTE | 2025-06-01 11:28 | MHC.CM.PN ---
PT REPORTS SHE LIVES ALONE AND IS INDEPENDENT WITH CARE SHE HAS NO DME AND NO SERVICES DECLINES A HCP PCP: DANIEL SAMAYOA @ [facility] DCP: HOME VIA PRIVATE TRANSPORT
[2025-06-01] MEDS: Nicotine 14 MG PATCH.TD24 TRANSDERMA (22:19)
[2025-06-02] VITALS (7 sets, daily range): BP systolic 113–127; BP diastolic 68–80; PULSE 56–95; RESP 16–20; TEMP 36.3–36.9; O2SAT 95–99
[2025-06-02] MEDS: Lactated Ringers 1,000 ML 100 ML IVCONT ×2 (04:21→16:48)
--- NOTE | 2025-06-02 07:02 | PM.PNGS ---
Subjective Subjective Date of Service: 06/02/25 [facility] Last Filed: 06/02/25 07:16> 06/02/25 <Annabelle Lei PA-C - Last Filed: 06/02/25 10:29> 06/02/25 <Jerrod Arzate MD - Last Filed: 06/02/25 11:22> Interval history: The patient is a 25 y/o F PMH alcohol use disorder, eating disorder, previous alcoholic pancreatitis, tobacco use, anxiety, depression who presented with epigastric pain and was admitted for alcoholic pancreatitis. She is in significant pain this AM--06/14 when the pain medication wears off. The pain is mostly on the lower left side and epigastric, but she says there is pain all around the abdomen and soreness on the back. She says the medication helps for about 3 hours. She is on a CLD and has not had any N/V since admission. She has not had a BM in 48 hours and has not passed gas. She is most concerned about missing her medication doses of sertraline and metoprolol and wants her boyfriend to bring her meds from home. She has been up and out of bed to go to the bathroom and is having no issues with urination. <[facility] Last Filed: 06/02/25 07:16> Physical Exam Vital Signs: Vital Signs: Last Vital Signs Temp 98.4 F 06/02/25 03:25 Pulse 63 06/02/25 03:25 Resp 16 06/02/25 03:25 BP 120/70 06/02/25 03:25 Pulse Ox 95 06/02/25 03:25 O2 Del Method Room Air 06/02/25 03:25 BMI result Body Mass Index 23.6 <[facility] Last Filed: 06/02/25 07:16> Resp: Effort & Inspection: normal respiratory effort <[facility] Filed: 06/02/25 07:16> Auscultation: clear to auscultation bilaterally <[facility] Filed: 06/02/25 07:16> Cardio: Rate: regular rate <[facility] Filed: 06/02/25 07:16> Rhythm: regular rhythm <[facility] Filed: 06/02/25 07:16> GI: Inspection: Yes normal to inspection and No distended <[facility] Last Filed: 06/02/25 07:16> Palpation (GI): Soft to palpation and Tenderness to palpation present (GI) in the epigastrum, in the LLQ, in the RLQ, in the LUQ and in the RUQ (L and epigastric>>right) <[facility] Last Filed: 06/02/25 07:16> Back/Spine/Pelvis: Back: back tenderness (mild to palpation) <[facility] Last Filed: 06/02/25 07:16> Objective Data Active Medications Acetaminophen (Acetaminophen 325 Mg Tablet) 650 mg PO Q6H PRN PRN Reason: Pain, Mild 1-3,fever,headache Calcium Carbonate (Calcium Carbonate 750 Mg Tab.Chew) 750 mg PO Q4H PRN PRN Reason: Heartburn Enoxaparin Sodium (Enoxaparin Sodium 40 Mg/0.4 Ml Syringe) 40 mg SUBCUT Q24H [facility] Last Admin: 06/01/25 08:55 Dose: 40 mg Documented By: ARTUR Hydromorphone HCl (Hydromorphone Hcl 0.5 Mg/0.5 Ml Syringe) 0.5 mg IVPUSH Q4H PRN; Protocol PRN Reason: Pain, Severe (Pain Scale 7-10) Last Admin: 06/02/25 06:38 Dose: 0.5 mg Documented By: HEIDI Lactated Ringer's (Lr) 1,000 mls @ 100 mls/hr IVCONT .Q10H [facility] Last Admin: 06/02/25 04:21 Dose: 100 mls/hr Documented By: HEIDI Magnesium Hydroxide (Milk Of Magnesia 30 Ml Oral.Susp) 30 ml PO DAILY PRN PRN Reason: Constipation Melatonin (Melatonin 3 Mg Tablet) 6 mg PO BEDTIME PRN PRN Reason: Insomnia Sodium Chloride (0.9 % Sodium Chloride Flush 3 Ml Syringe) 3 ml IVFLUSH QSHIFT [facility] Last Admin: 06/01/25 22:20 Dose: 3 ml Documented By: HEIDI <[facility] Last Filed: 06/02/25 07:16> Labs CBC & Chem 7: 06/02/25 07:06 06/02/25 07:06 <Sophie Holloway - Last Filed: 06/02/25 07:16> Procedures Date of Service Date of Service: 06/02/25 <Sophie Holloway - Last Filed: 06/02/25 07:16> 06/02/25 <Annabelle Lei PA-C - Last Filed: 06/02/25 10:29> 06/02/25 <Jerrod Arzate MD - Last Filed: 06/02/25 11:22> Progress Note: A&P Assessment and plan (1) Alcoholic pancreatitis: Status: Acute <Sophie Holloway - Last Filed: 06/02/25 07:16> Assessment and Plan: The patient is a 25 y/o F PMH alcohol use disorder, eating disorder, previous alcoholic pancreatitis, tobacco use, anxiety, depression who presented with epigastric pain and was admitted for alcoholic pancreatitis who is in significant pain today. She was also hypokalemic on admission. Her main issue is continuing with pain management and maintaining minimal diet for bowel rest. PLAN Medical management of home medications. Continue CLD. Continue pain management. Encourage ambulation. COntinue to monitor for BM/flatus. Recheck blood work & monitor for signs of hypokalemia. <Sophie Holloway - Last Filed: 06/02/25 07:16> The patient is a 25 y/o F PMH alcohol use disorder, eating disorder, previous alcoholic pancreatitis, tobacco use, anxiety, depression who presented with epigastric pain and was admitted for alcoholic pancreatitis who is in significant pain today. She was also hypokalemic on admission. Her main issue is continuing with pain management and maintaining minimal diet for bowel rest. PLAN Medical management of home medications. Continue CLD. Continue pain management. Encourage ambulation. COntinue to monitor for BM/flatus. Recheck blood work & monitor for signs of hypokalemia. Agree with above assessment and plan. Continues to be no clinical concern for acute appendicitis. WBC remains normal. Afebrile. Will sign off. Please reconsult if needed. <Annabelle Lei PA-C - Last Filed: 06/02/25 10:29> The patient is a 25 y/o F PMH alcohol use disorder, eating disorder, previous alcoholic pancreatitis, tobacco use, anxiety, depression who presented with epigastric pain and was admitted for alcoholic pancreatitis who is in significant pain today. She was also hypokalemic on admission. Her main issue is continuing with pain management and maintaining minimal diet for bowel rest. PLAN Medical management of home medications. Continue CLD. Continue pain management. Encourage ambulation. COntinue to monitor for BM/flatus. Recheck blood work & monitor for signs of hypokalemia. Agree with above assessment and plan. Continues to be no clinical concern for acute appendicitis. WBC remains normal. Afebrile. Will sign off. Please reconsult if needed. Late entry: Patient seen and examined independently and images reviewed. Findings not suggestive of appendicitis as noted above. Please reconsult if needed. <Jerrod Arzate MD - Last Filed: 06/02/25 11:22> Time Spent With Patient Time: Total time managing care of this patient today ____ minutes. <Sophie Borgesh Last Filed: 06/02/25 07:16> Quality Stroke Does the patient have a stroke diagnosis?: No <Sophie Borgesh Last Filed: 06/02/25 07:16> VTE Prior VTE?: No <Sophie Borgesh Last Filed: 06/02/25 07:16> VTE Risk Level:: Medical - moderate - high <Sophie Issa Filed: 06/02/25 07:16> VTE Device Contraindication: Treatment Not Indicated <Sophie Borgesh - Last Filed: 06/02/25 07:16> VTE Drug Contraindication: N/A - Med Ordered <Sophie Borgesh Filed: 06/02/25 07:16>
[2025-06-02 07:11] LABS: MANUAL DIFF FLAG NO
[2025-06-02 07:16] LABS: Hematocrit 34.0 % (37.0-47.0); Hemoglobin 11.7 g/dl (12.0-16.0); Imm Gran Abs Auto 0.02 X10*3/uL (0.00-0.03); Imm Gran Pct Auto 0.4 % (0.0-0.4); Lymphocytes Absolute Auto 1.7 X10*3/uL (1.2-4.9); Mean Corpuscular HGB Conc 34.4 g/dl (31.0-35.0); Mean Corpuscular Hemoglobin 31.9 pg (27.0-33.0); Mean Corpuscular Volume 92.6 fL (80.0-98.0); NRBC Abs Auto 0.000 X10*3/uL (0.0-0.012); NRBC Pct Auto 0.0 /100WBC (0.0-0.2); Platelet Count 102 X10*3/uL (160-400); Red Blood Count 3.67 X10*6/uL (4.20-5.50); White Blood Count 5.5 X10*3/uL (4.8-10.8)
[2025-06-02 07:33] LABS: Alanine Aminotransferase 8 U/L (0-31); Albumin Level 2.9 g/dL (3.5-5.0); Alkaline Phosphatase 73 U/L (39-117); Anion Gap 13 (12-20); Aspartate Amino Transferase 19 U/L (5-31); Blood Urea Nitrogen 3 mg/dL (9-16); Calcium 8.3 mg/dL (8.4-10.2); Carbon Dioxide 25 mmol/L (22-29); Chloride 107 mmol/L (96-108); Creatinine Clr Calc Pharmacy 142.3; Estimated Glomerular Filt Rate > 60; Magnesium 1.8 mg/dL (1.6-2.6); Potassium 3.8 mmol/L (3.3-5.1); Sodium 141 mmol/L (135-145); Total Protein 5.1 g/dL (6.5-8.0)
[2025-06-02] MEDS: Metoprolol Succinate ER 25 MG TAB.ER.24H PO (09:00)
--- NOTE | 2025-06-02 09:30 | HO.PM.IMPN ---
Subjective Subjective Date of Service: 06/02/25 Interval History: Pain no longer as well controlled Has been able to tolerate some clear liquids No N/V Review of Systems Review of Systems: Yes all other systems are reviewed and are negative Physical Exam Exam: Exam: General: AOx3, no acute distress Resp: CTA bilaterally CVS: S1, S2, RRR GI: Diffuse abd tenderness worse in LUQ, +BS, no distention, Skin: Warm, dry Neuro: Cranial nerves II-XII grossly intact bilaterally. Motor grossly intact bilaterally Extremities: No edema Psych: Appropriate affect Vital Signs: Vital Signs: Last Vital Signs Temp 97.5 F 06/02/25 07:29 Pulse 65 06/02/25 07:29 Resp 20 06/02/25 07:29 BP 113/72 06/02/25 07:29 Pulse Ox 99 06/02/25 07:29 O2 Del Method Room Air 06/02/25 07:29 BMI result Body Mass Index 23.6 Objective Data Active Medications Acetaminophen (Acetaminophen 325 Mg Tablet) 650 mg PO Q6H PRN PRN Reason: Pain, Mild 1-3,fever,headache Calcium Carbonate (Calcium Carbonate 750 Mg Tab.Chew) 750 mg PO Q4H PRN PRN Reason: Heartburn Enoxaparin Sodium (Enoxaparin Sodium 40 Mg/0.4 Ml Syringe) 40 mg SUBCUT Q24H [facility] Last Admin: 06/02/25 09:01 Dose: 40 mg Documented By: MIRZA Hydroxyzine HCl (Hydroxyzine Hcl 50 Mg Tablet) 50 mg PO Q8H PRN PRN Reason: Anxiety Lactated Ringer's (Lr) 1,000 mls @ 100 mls/hr IVCONT .Q10H [facility] Last Admin: 06/02/25 04:21 Dose: 100 mls/hr Documented By: HEIDI Magnesium Hydroxide (Milk Of Magnesia 30 Ml Oral.Susp) 30 ml PO DAILY PRN PRN Reason: Constipation Melatonin (Melatonin 3 Mg Tablet) 6 mg PO BEDTIME PRN PRN Reason: Insomnia Metoprolol Succinate (Metoprolol Succinate Er 25 Mg Tab.Er.24h) 25 mg PO DAILY [facility]OCKY; Protocol Last Admin: 06/02/25 09:00 Dose: 25 mg Documented By: MIRZA Morphine Sulfate (Morphine Sulfate 4 Mg/Ml Cartridge) 4 mg IVPUSH Q3H PRN; Protocol PRN Reason: Pain, Severe (Pain Scale 7-10) Last Admin: 06/02/25 09:07 Dose: 4 mg Documented By: MIRZA Sertraline HCl (Sertraline Hcl 25 Mg Tablet) 25 mg PO DAILY [facility] Last Admin: 06/02/25 09:01 Dose: 25 mg Documented By: MIRZA Sertraline HCl (Sertraline Hcl 100 Mg Tablet) 100 mg PO DAILY [facility] Last Admin: 06/02/25 09:01 Dose: 100 mg Documented By: MIRZA Sodium Chloride (0.9 % Sodium Chloride Flush 3 Ml Syringe) 3 ml IVFLUSH QSHIFT [facility] Last Admin: 06/02/25 09:02 Dose: Not Given Documented By: MIRZA Non-Admin Reason: IV Running Labs 06/02/25 07:06 06/02/25 07:06 Labs: Laboratory Results - last 24 hr 06/02/25 07:06 MCV 92.6 MCH 31.9 MCHC 34.4 RDW 13.2 Plt Count 102 L MPV 10.3 Immature Gran % (Auto) 0.4 Neut % (Auto) 59.0 Lymph % (Auto) 30.7 [place] % (Auto) 6.4 Eos % (Auto) 3.3 Baso % (Auto) 0.2 Lymph # (Auto) 1.7 [place] # (Auto) 0.4 Eos # (Auto) 0.2 Baso # (Auto) 0.0 Abs Immat Gran (auto) 0.02 Absolute Neuts (auto) 3.2 Absolute Nucleated RBC 0.000 Nucleated RBC % (auto) 0.0 Anion Gap 13 Estim Creat Clear Calc 142.3 Estimated GFR > 60 Random Glucose 95 Calcium 8.3 L D Magnesium 1.8 Total Bilirubin 0.2 AST 19 ALT 8 Alkaline Phosphatase 73 Total Protein 5.1 L Albumin 2.9 L Microbiology Microbiology Results: Microbiology 06/01/25 06:59 Blood Culture - Preliminary Blood - Venous No growth after 24 hours. Assessment and Plan (1) Alcoholic pancreatitis: Status: Acute Plan Pt is a 25-year-old female with a PMH significant for?alcohol use disorder, alcoholic pancreatitis, eating disorder, PTSD, anxiety, and depression who presents to the ED with?left-sided abdominal pain wrapping around to back for the past few days. Pt is admitted to the hospital for treatment and further evaluation of acute alcohol induced pancreatitis. Acute alcoholic pancreatitis Pt recently started drinking again after previous episode of pancreatitis in February/March of this year Pain not as well controlled this morning Continue IVF, analgesics for pain management, antiemetics Continue clear liquid diet for now, advance as tolerated Alcohol cessation strongly encouraged Will need outpatient MRI pancreas protocol in 6-8 weeks GI following Hypokalemia Potassium initially 3.2, currently 3.8 after supplementation in the ED Follow potassium, replenish as necessary Question of appendicitis CT showing enlarged appendix possibly secondary to acute appendicitis Seen and evaluated by General surgery who note no leukocytosis or periappendiceal stranding; acute appendicitis unlikely Treat as above Zosyn discontinued Complex adnexal cyst Pelvic ovarian Doppler U/S negative for ovarian torsion, but showed complex fluid in the right adnexa Spoke to [employer] who recommended outpatient follow up for repeat imaging in 3-6 months Chronic tachycardia Continue metoprolol Mood disorder Continue hydroxyzine, sertraline Full Code DVT Prophylaxis: Lovenox Pt not yet tolerating solid diet. Will or continued hospitalization for IVF, pain management, and monitoring of labs. Quality Stroke Does the patient have a stroke diagnosis?: No VTE Prior VTE?: No VTE Risk Level:: Medical - moderate - high VTE Device Contraindication: Treatment Not Indicated VTE Drug Contraindication: N/A - Med Ordered
--- NOTE | 2025-06-02 11:41 | MHC.CM.PN ---
PER MD ROUNDS, PT NOT MEDICALLY CLEAR, STILL REQUIRING PAIN MANAGEMENT AND NOT TOLERATING SOLID FOOD DCP: HOME VIA PRIVATE TRANSPORT
[2025-06-02] MEDS: Milk of Magnesia 30 ML ORAL.SUSP PO (12:27)
[2025-06-02] MEDS: 0.9 % Sodium Chloride Flush 3 ML SYRINGE IVFLUSH (22:50)
[2025-06-03] MEDS: Lactated Ringers 1,000 ML 100 ML IVCONT (03:10)
[2025-06-03 03:34] VITALS: BP 112/74; PULSE 65; RESP 16; TEMP 36; O2SAT 98
[2025-06-03 07:56] VITALS: BP 117/72; PULSE 56; RESP 18; TEMP 36.1; O2SAT 100
[2025-06-03] MEDS: Metoprolol Succinate ER 25 MG TAB.ER.24H PO (08:22)
[2025-06-03] MEDS: 0.9 % Sodium Chloride Flush 3 ML SYRINGE IVFLUSH ×3 (08:24→21:00)
[2025-06-03 08:44] LABS: Anion Gap 12 (12-20); Blood Urea Nitrogen < 3 mg/dL (9-16); Calcium 8.7 mg/dL (8.4-10.2); Carbon Dioxide 28 mmol/L (22-29); Chloride 107 mmol/L (96-108); Creatinine Clr Calc Pharmacy 139.2; Estimated Glomerular Filt Rate > 60; Potassium 4.2 mmol/L (3.3-5.1); Sodium 143 mmol/L (135-145)
[2025-06-03 11:44] VITALS: BP 99/58; PULSE 54; RESP 18; TEMP 36.4; O2SAT 99
--- NOTE | 2025-06-03 12:50 | HO.PM.IMPN ---
Subjective Subjective Date of Service: 06/03/25 Interval History: Tolerating small amount of CLD Abd pain better controlled with morphine No N/V No BM yet Review of Systems Review of Systems: Yes all other systems are reviewed and are negative Physical Exam Exam: Exam: General: AOx3, no acute distress Resp: CTA bilaterally CVS: S1, S2, RRR GI: Diffuse abd tenderness worse in LUQ, +BS, no distention Skin: Warm, dry Neuro: Cranial nerves II-XII grossly intact bilaterally. Motor grossly intact bilaterally Extremities: No edema Psych: Appropriate affect Vital Signs: Vital Signs: Last Vital Signs Temp 97.5 F 06/03/25 11:44 Pulse 54 06/03/25 11:44 Resp 18 06/03/25 11:44 BP 99/58 L 06/03/25 11:44 Pulse Ox 99 06/03/25 11:44 O2 Del Method Room Air 06/03/25 11:44 BMI result Body Mass Index 23.6 Objective Data Active Medications Acetaminophen (Acetaminophen 325 Mg Tablet) 650 mg PO Q6H PRN PRN Reason: Pain, Mild 1-3,fever,headache Calcium Carbonate (Calcium Carbonate 750 Mg Tab.Chew) 750 mg PO Q4H PRN PRN Reason: Heartburn Enoxaparin Sodium (Enoxaparin Sodium 40 Mg/0.4 Ml Syringe) 40 mg SUBCUT Q24H [facility] Last Admin: 06/03/25 08:22 Dose: 40 mg Documented By: ASHLI Hydroxyzine HCl (Hydroxyzine Hcl 50 Mg Tablet) 50 mg PO Q8H PRN PRN Reason: Anxiety Lorazepam (Lorazepam 0.5 Mg Tablet) 0.25 mg PO BEDTIME PRN PRN Reason: Insomnia Magnesium Hydroxide (Milk Of Magnesia 30 Ml Oral.Susp) 30 ml PO DAILY PRN PRN Reason: Constipation Last Admin: 06/02/25 12:27 Dose: 30 ml Documented By: MALDONA Melatonin (Melatonin 3 Mg Tablet) 6 mg PO BEDTIME PRN PRN Reason: Insomnia Metoprolol Succinate (Metoprolol Succinate Er 25 Mg Tab.Er.24h) 25 mg PO DAILY [facility]; Protocol Last Admin: 06/03/25 08:22 Dose: 25 mg Documented By: ASHLI Morphine Sulfate (Morphine Sulfate 4 Mg/Ml Cartridge) 4 mg IVPUSH Q3H PRN; Protocol PRN Reason: Pain, Severe (Pain Scale 7-10) Last Admin: 06/03/25 11:32 Dose: 4 mg Documented By: ASHLI Nicotine Polacrilex (Nicotine Polacrilex 2 Mg Gum) 2 mg BUCCAL Q2H PRN PRN Reason: Nicotine Cravings Last Admin: 06/03/25 11:32 Dose: 2 mg Documented By: ASHLI Polyethylene Glycol (Polyethylene Glycol 3350 17 Gm Powd.Pack) 17 gm PO DAILY PRN PRN Reason: Constipation Last Admin: 06/03/25 11:32 Dose: 17 gm Documented By: ASHLI Sertraline HCl (Sertraline Hcl 25 Mg Tablet) 25 mg PO DAILY [facility] Last Admin: 06/03/25 08:22 Dose: 25 mg Documented By: ASHLI Sertraline HCl (Sertraline Hcl 100 Mg Tablet) 100 mg PO DAILY [facility] Last Admin: 06/03/25 08:22 Dose: 100 mg Documented By: ASHLI Sodium Chloride (0.9 % Sodium Chloride Flush 3 Ml Syringe) 3 ml IVFLUSH QSHIFT [facility] Last Admin: 06/03/25 08:24 Dose: 3 ml Documented By: ASHLI Labs 06/02/25 07:06 06/03/25 07:28 Labs: Laboratory Results - last 24 hr 06/03/25 06/03/25 07:27 07:28 Hold Purple Top SEE NOTE Anion Gap 12 Estim Creat Clear Calc 139.2 Estimated GFR > 60 Random Glucose 79 Calcium 8.7 Microbiology Microbiology Results: Microbiology 06/01/25 08:37 Blood Culture - Preliminary Blood - Venous No growth after 48 hours. 06/01/25 06:59 Blood Culture - Preliminary Blood - Venous No growth after 48 hours. Assessment and Plan (1) Alcoholic pancreatitis: Status: Acute Assessment and Plan: Pt is a 25-year-old female with a PMH significant for?alcohol use disorder, alcoholic pancreatitis, eating disorder, PTSD, anxiety, and depression who presents to the ED with?left-sided abdominal pain wrapping around to back for the past few days. Pt is admitted to the hospital for treatment and further evaluation of acute alcohol induced pancreatitis. Acute alcoholic pancreatitis Pt recently started drinking again after previous episode of pancreatitis in February/March of this year Pain better controlled with morphine Continue IVF, analgesics for pain management, antiemetics Continue clear liquid diet for now, advance as tolerated Alcohol cessation strongly encouraged Will need outpatient MRI pancreas protocol in 6-8 weeks GI following Hypokalemia Potassium initially 3.2, currently 3.8 after supplementation in the ED Follow potassium, replenish as necessary Question of appendicitis CT showing enlarged appendix possibly secondary to acute appendicitis Seen and evaluated by General surgery who note no leukocytosis or periappendiceal stranding; acute appendicitis unlikely Treat as above Zosyn discontinued Complex adnexal cyst Pelvic ovarian Doppler U/S negative for ovarian torsion, but showed complex fluid in the right adnexa Spoke to [employer] who recommended outpatient follow up for repeat imaging in 3-6 months Chronic tachycardia Continue metoprolol Mood disorder Continue hydroxyzine, sertraline Full Code DVT Prophylaxis: Lovenox Pt not yet tolerating solid diet. Will or continued hospitalization for IVF, pain management, and monitoring of labs. Quality Stroke Does the patient have a stroke diagnosis?: No VTE Prior VTE?: No VTE Risk Level:: Medical - moderate - high VTE Device Contraindication: Treatment Not Indicated VTE Drug Contraindication: N/A - Med Ordered
[2025-06-03 16:00] VITALS: BP 111/80; PULSE 57; RESP 18; TEMP 36.1; O2SAT 99
[2025-06-03 19:14] VITALS: BP 120/69; PULSE 59; RESP 16; TEMP 36.1; O2SAT 100
[2025-06-03 23:43] VITALS: BP 119/64; PULSE 60; RESP 16; TEMP 36.4; O2SAT 100
[2025-06-04 03:34] VITALS: BP 106/59; PULSE 58; RESP 16; TEMP 36; O2SAT 100
[2025-06-04 07:48] VITALS: BP 102/60; PULSE 57; RESP 18; TEMP 36.7; O2SAT 98
[2025-06-04] MEDS: Metoprolol Succinate ER 25 MG TAB.ER.24H PO (08:23)
[2025-06-04] MEDS: 0.9 % Sodium Chloride Flush 3 ML SYRINGE IVFLUSH (08:29)
[2025-06-04 09:44] LABS: Anion Gap 11 (12-20); Blood Urea Nitrogen < 3 mg/dL (9-16); Calcium 8.7 mg/dL (8.4-10.2); Carbon Dioxide 26 mmol/L (22-29); Chloride 109 mmol/L (96-108); Creatinine Clr Calc Pharmacy 139.2; Estimated Glomerular Filt Rate > 60; Potassium 4.1 mmol/L (3.3-5.1); Sodium 142 mmol/L (135-145)
--- NOTE | 2025-06-04 13:20 | P.DS_ITS ---
DS: Providers Provider Date of Service: 06/04/25 Date of admission: 06/01/25 06:36 Date of discharge: 06/04/25 Primary care physician: Jenny Workman Consults: 06/01/25 06:36 Consult to Gastroenterology Routine Consulting Provider: [facility] [place] [facility] Reason for consultation: pancreatitis Consult to General Surgery Routine Consulting Provider: [facility] [place] [facility] Reason for consultation: ?appendicitis DS: Diagnosis Discharge Diagnosis (1) Alcoholic pancreatitis: Status: Acute DS: Summary Hospital Course Hospital Course: From admission HPI: Date of Service: 06/01/25 Attending physician on admission: Yamil Cam Chief Complaint: Abd pain Pt is a 25-year-old female with a PMH significant for?alcohol use disorder, alcoholic pancreatitis, eating disorder, PTSD, anxiety, and depression who presents to the ED with?left-sided abdominal pain wrapping around to back for the past few days. Pt was previously admitted to the hospital earlier in the year from 02/28-03/07 for with similar symptoms and found to have acute alcoholic pancreatitis. Pt reports since then she stopped drinking for some time, that began drinking again 1-2 weeks ago. Pt is vague about how much she has been drinking, but reports it is much less than before when she was drinking a ?crazy? amount of alcohol. Denies nausea or vomiting. Has been able to tolerate a small amount of food and liquids since symptom onset. No fever or chills. Denies chest pain/pressure, palpitations. In the ED pt was tachycardic up to 104 but vitals otherwise WNL. Labs were significant for potassium 3.2, AST 34, and lipase 110. Ethyl alcohol levels negative. CTA of abdomen/pelvis found mild straightening about the pancreas. Also showed possible appendicitis and an abnormal low density, mildly prominent right ovary with surrounding free fluid. Pelvic ultrasound with Doppler study showed complex fluid in the right adnexa without evidence of torsion. Pt was treated in the ED with potassium chloride p.o. and IV, famotidine, ondansetron, Maalox, acetaminophen, ketorolac, hydromorphone, and IVF. Pt is admitted to the hospital for treatment and further evaluation of acute alcohol induced pancreatitis. Hospital course Pt was admitted to the hospital for acute alcoholic pancreatitis and treated with supportive care including IVF, bowel rest, analgesics, and antiemetics. Pt responded well to therapies and overall hospital course was uncomplicated. Patient's diet was slowly advanced and she is currently tolerating a full solid diet. No significant electrolyte abnormalities or renal dysfunction were noted. Pt has been experiencing constipation likely multifactorial: Secondary to reduced p.o. intake and opioid analgesics. Pt will be discharged home on short course of MiraLax and Colace. Pt is strongly encouraged to abstain from alcohol use. Pt did have incidental CT findings that did not require acute intervention. She will need outpatient follow-up for MRI pancreas protocol in 6-8 weeks, and follow up with lock fitter for repeat imaging in 3-6 months for complex adnexal cyst. Additional details concerning hospital stay as listed below. Acute alcoholic pancreatitis Pt recently started drinking again after previous episode of pancreatitis in February/March of this year Received supportive care with IVF, analgesics for pain management, antiemetics Tolerating solid diet since 06/03 Alcohol cessation strongly encouraged Will need outpatient MRI pancreas protocol in 6-8 weeks Hypokalemia, resovled Potassium initially 3.2, currently 3.8 after supplementation in the ED Question of appendicitis CT showing enlarged appendix possibly secondary to acute appendicitis Seen and evaluated by General surgery who note no leukocytosis or periappendiceal stranding; acute appendicitis unlikely Zosyn discontinued No additional follow up required Complex adnexal cyst Pelvic ovarian Doppler U/S negative for ovarian torsion, but showed complex fluid in the right adnexa Spoke to INSTITUTIONAL COMMODITY ANALYST who recommended outpatient follow up for repeat imaging in 3-6 months Chronic tachycardia Continue metoprolol Mood disorder Continue hydroxyzine, sertraline Time Attestation Discharge Coordination Time (in mins): 33 Quality: Safe Use of Opioids Does Pt have an Active Cancer Diagnosis on the Problem List?: No Quality: Stroke Does the patient have a stroke diagnosis?: No Physical Exam Exam: Exam: General: AOx3, no acute distress Resp: CTA bilaterally CVS: S1, S2, RRR GI: +BS, soft, no distention, mild diffuse tenderness Skin: Warm, dry Neuro: Cranial nerves II-XII grossly intact bilaterally. Motor grossly intact bilaterally Extremities: No edema Psych: Appropriate affect Vital Signs: Vital Signs: Last Vital Signs Temp 98.1 F 06/04/25 07:48 Pulse 57 06/04/25 07:48 Resp 18 06/04/25 07:48 BP 102/60 06/04/25 07:48 Pulse Ox 98 06/04/25 07:48 O2 Del Method Room Air 06/04/25 07:48 BMI result Body Mass Index 23.6 DS: Data Data Completed and Pending Labs on day of discharge: Laboratory Results - last 24 hr 06/04/25 08:52 Hold Purple Top SEE NOTE Sodium 142 Potassium 4.1 Chloride 109 H Carbon Dioxide 26 Anion Gap 11 L BUN < 3 L Creatinine 0.47 L Estim Creat Clear Calc 139.2 Estimated GFR > 60 Random Glucose 90 Calcium 8.7 Preliminary micro results at discharge 06/01/25 08:37 Blood Culture - Preliminary Blood - Venous No growth after 48 hours. 06/01/25 06:59 Blood Culture - Preliminary Blood - Venous No growth after 48 hours. Discharge Plan Discharge Anticipated Discharge Date/Time: 06/04/25 13:31 Patient Disposition: Home, Self-Care Discharge Diagnosis: Acute alcohol pancreatitis Referrals: Jenny Workman [Primary Care Provider, Internal Medicine] - 1 Week Discharge Medications: New oxycodone 5 mg tablet 5 mg PO TID PRN (Reason: pain (scale score 7-10)) Qty: 6 0RF Rx Instructions: Partial Fill upon patient request. Take one tablet up to three times a day for severe pain. polyethylene glycol 3350 17 gram/dose powder 17 g PO DAILY PRN (Reason: constipation) Qty: 119 0RF Rx Instructions: Take 17 grams daily as needed for constipation docusate sodium [Colace] 100 mg capsule 100 mg PO BID PRN (Reason: constipation) Qty: 30 0RF Rx Instructions: Take one capsule twice a day as needed for constipation Continued sertraline 100 mg tablet 100 mg PO DAILY sertraline 25 mg tablet 25 mg PO DAILY acetaminophen 325 mg Tablet 325 mg PO QID PRN (Reason: Pain) metoprolol succinate 25 mg tablet extended release 24 hr 25 mg PO DAILY Qty: 90 0RF ondansetron 4 mg tablet,disintegrating 4 mg PO Q8H PRN (Reason: nausea and vomiting) Qty: 20 0RF hydroxyzine HCl 50 mg tablet 50 mg PO Q8H PRN (Reason: Anxiety) Discharge Orders: Discharge Order (Routine); Ordered 06/04/25 Ordered By: Su Riddle Activity on Discharge: As tolerated Stand Alone Forms: Patient Portal Discharge page Print Language: Belarusian Care Plan Goals: See below Health Concerns: Alcohol-induced pancreatitis Appendicitis Adnexal cyst Alcohol dependence Plan of Treatment: You were admitted to the hospital for acute alcohol induced pancreatitis and 4 which retreated supportively with bowel rest, IVF, analgesics, and antiemetics. Your diet was slowly advanced and at time of discharge you were tolerating a full solid diet. Imaging in the ED showed both possible appendicitis as well as a complex adnexal fluid collection. You were seen evaluated by General surgery who thought appendicitis unlikely. You also received pelvic ultrasound which showed complex right-sided adnexal cyst. -- for acute alcoholic pancreatitis, he will be discharged home on a short course of oxycodone for pain management -- you will also need to follow up outpatient with GI for an MRI pancreas protocol in 6-8 weeks -- your strongly encouraged to abstain from alcohol consumption -- for complex adnexal cyst, follow up outpatient with INSTITUTIONAL COMMODITY ANALYST for repeat imaging in 3-6 months -- for constipation, you will be discharged with both Colace 100 mg twice a day and MiraLax 17 g daily as needed for constipation -- continue all of your other home medications Assessment: See discharge summary
--- NOTE | 2025-06-04 13:56 | MHC.CM.PN ---
Pt. has been medically cleared, she will go home via private transport, plan is self care.
== END 2025-06-04 14:06 | disposition home or self-care (01) | DRG 282 ==
LOC: HO.ED 03:25 → HO.EDOVER 06:40 → HO.IMC 16:14
PROVIDERS: Admitting Provider Hospitalist; Emergency Provider Emergency Medicine; PCP Nurse Practitioner Family; Visit Provider Student in an Organized Health Care Education/Training Program
DX: K85.20 Alcohol induced acute pancreatitis without necrosis or infection (principal); K35.80 Unspecified acute appendicitis; D69.6 Thrombocytopenia, unspecified; E87.6 Hypokalemia; F10.20 Alcohol dependence, uncomplicated; F17.210 Nicotine dependence, cigarettes, uncomplicated; N83.201 Unspecified ovarian cyst, right side; F39 Unspecified mood [affective] disorder; R00.0 Tachycardia, unspecified; Z71.6 Tobacco abuse counseling; Z79.899 Other long term (current) drug therapy
CPT/HCPCS: 36415; 74177; 76830; 76856; 80048; 80053; 80307; 81003; 83690; 83735; 84702; 85025; 87040; 93975; 99285; J0131; J1171; J1308; J1650; J1885; J2270; J2405; J2543; J3480; J7120; Q9967

== ENCOUNTER → 2025-06-01 04:08 | Outpatient (BNV) | payer OTHER, SELFPAY | PROVIDERS: Emergency Provider Emergency Medicine; Visit Provider Radiology Vascular & Interventional Radiology | DX: K38.0 Hyperplasia of appendix (principal); R10.84 Generalized abdominal pain; N83.291 Other ovarian cyst, right side | CPT/HCPCS: 74177; 76830; 76856; 93975 ==

== ENCOUNTER → 2025-06-01 06:36 | Outpatient (BNV) | payer OTHER, SELFPAY | PROVIDERS: Admitting Provider Hospitalist; Emergency Provider Emergency Medicine; PCP Nurse Practitioner Family; Visit Provider Student in an Organized Health Care Education/Training Program | DX: K85.20 Alcohol induced acute pancreatitis without necrosis or infection (principal) | CPT/HCPCS: 99223; 99233 ==

== ENCOUNTER → 2025-06-01 06:36 | Outpatient (BNV) | payer OTHER, SELFPAY | PROVIDERS: Admitting Provider Hospitalist; Emergency Provider Emergency Medicine; PCP Nurse Practitioner Family; Visit Provider Internal Medicine | DX: K85.20 Alcohol induced acute pancreatitis without necrosis or infection (principal); Z72.0 Tobacco use; F10.90 Alcohol use, unspecified, uncomplicated; D69.6 Thrombocytopenia, unspecified | CPT/HCPCS: 99222 ==

== ENCOUNTER → 2025-06-01 06:36 | Outpatient (BNV) | payer OTHER, SELFPAY | PROVIDERS: Admitting Provider Hospitalist; Emergency Provider Emergency Medicine; PCP Nurse Practitioner Family; Visit Provider Surgery | DX: K85.20 Alcohol induced acute pancreatitis without necrosis or infection (principal) | CPT/HCPCS: 99222; 99232 ==

== ENCOUNTER 2025-09-13 13:09 | Inpatient (IN) | payer OTHER, SELFPAY ==
--- NOTE | ~2025-09-13 | CT_ITS ---
CLINICAL HISTORY: abd pain L sided hx of pancreatitis --- Additional Notes or Special Instructions: NEED PREG CT abdomen and pelvis with contrast Comparison: CT/REG/SR - CT ABDOMEN PELVIS W IV CON - 06/01/25 04:[address] - CT ABDOMEN PELVIS W IV CON - 06/01/25 04:39 EDT Findings: No consolidation at the lung bases. Unremarkable gallbladder and bladder. Marked hepatic steatosis. Hepatomegaly, measuring 21.9 cm in craniocaudal dimension. Mild peripancreatic stranding. There is fluid attenuation lesion in the tail of the pancreas measuring 2.0 x 1.7 x 1.9 cm, previously measuring 1.9 x 1.6 x 1.5 cm. There are also subcentimeter low attenuating lesions in the pancreas, greater than on the prior study. The other solid organs are unremarkable. No bowel dilation. A normal appendix is identified. There is increased submucosal fat in the terminal ileum and colon. Normal aorta. Nonocclusive thrombus within splenic vein, new. The superior mesenteric and portal veins are patent. No lymphadenopathy. No ascites. No acute osseous abnormality. Impression: Acute pancreatitis. Nonocclusive splenic vein thrombus. Interval increase in size of cyst in the tail of the pancreas, likely walled-off necrosis, measuring up to 2.0 cm. Multiple subcentimeter low attenuating lesions in the pancreas, likely the sequela of pancreatitis. Follow up is recommended. This document has been electronically signed by: Mary Beth Gupta MD on 09/13/2025 19:14:50
[2025-09-13 13:27] VITALS: BP 140/92; PULSE 117; RESP 18; TEMP 36.8; O2SAT 97; BMI 19.9
--- NOTE | 2025-09-13 13:29 | ED.ALCOHOL ---
HPI - Alcohol General Chief Complaint: General Medical Stated Complaint: General Medical Time Seen by Provider: 09/13/25 13:54 Source: patient Mode of arrival: ambulatory Limitations: no limitations History of Present Illness ED Provider: MOJGAN Hart HPI narrative: Chief Complaint: ?I feel weak and in pain and I?m scared I have pancreatitis again.? History of Present Illness: Patient presents to the ED reporting generalized weakness and abdominal pain. She describes the pain as primarily left-sided, most pronounced in the left lower quadrant and wrapping around to her back. She has a history of pancreatitis, last episode ?a few months ago,? and is worried the condition has recurred. She admits to heavy alcohol use (?probably a sleeve a day?; last drink ~6 hours ago). She is diagnosed with anorexia nervosa; she reports poor oral intake, vomiting with eating, and no prior hospitalizations for the eating disorder. She feels shaky but denies headache. She endorses anxiety and passive thoughts of not wanting to live but denies active suicidal intent or plan at this time; she is seeking inpatient treatment for her eating disorder. She reports having recently tried to find an inpatient treatment program and has recently admitted to needing help. Additional history includes toxic alcohol cardiomyopathy. She smokes cannabis, nicotine, and vapes; she denies IV drug use. Related Data Home Medications ?Medication ?Instructions ?Recorded ?Confirmed acetaminophen 325 mg tablet 325 mg PO QID PRN Pain 02/28/25 06/01/25 sertraline 100 mg tablet 100 mg PO DAILY 02/28/25 06/01/25 sertraline 25 mg tablet 25 mg PO DAILY 02/28/25 06/01/25 hydroxyzine HCl 50 mg tablet 50 mg PO Q8H PRN Anxiety 06/01/25 06/01/25 Previous Rx's ?Medication ?Instructions ?Recorded metoprolol succinate 25 mg 25 mg PO DAILY #90 tabs 03/07/25 tablet,extended release 24 hr ondansetron 4 mg disintegrating 4 mg PO Q8H PRN nausea and 03/07/25 tablet vomiting #20 tabs docusate sodium 100 mg capsule 100 mg PO BID PRN constipation #30 06/04/25 (Colace) caps oxycodone 5 mg tablet 5 mg PO TID PRN pain (scale score 06/04/25 7-10) #6 tabs polyethylene glycol 3350 17 17 g PO DAILY PRN constipation 06/04/25 gram/dose oral powder #119 grams Allergies Allergy/AdvReac Type Severity Reaction Status Date / Time No Known Allergies Allergy Verified 09/13/25 13:31 Review of Systems Review of Systems: Yes all other systems are reviewed and are negative [facility] Past Medical History Attestation statement: The following information was validated with the patient. Source: old records reviewed and nursing notes reviewed Medical History Takotsubo cardiomyopathy Binge-eating and purging type anorexia nervosa Closed fracture of cuboid bones of both feet with routine healing Tobacco use Marijuana use Trauma in childhood Anxiety Depression Surgical History H/O foot surgery Social History Social History Household Members: None Housing: House Do you presently have visiting nurse or other home services: No Alcohol intake: current Alcohol intake frequency: 3 or more drinks per day Alcohol type: hard liquor Comment: For the last 2 weeks patient has been drinking 10 nips minimum per day of v Patient Tobacco Use Status: Current everyday Tobacco user Tobacco use type: Cigarette e-Cigarette/Vaping Use: Never Used Second Hand Smoke Exposure: No Use of substances other than those prescribed or required for medical reasons: Yes Substance Use Type: Marijuana Substance Use Frequency: Chronic Longstanding Last Used Substance: Just Prior to Admission Any prior treatment program specific to substance use: No Advance Directives: No Advance Directives Information Provided: Yes Do you have a plan to hurt others: No Plan Patient : No service: No Current occupational status: employed 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 Oriented X3.? No acute distress.?+ patient appears frail Head: Normocephalic, atraumatic, no step-offs or deformities Eyes: Pupils equal, round and reactive to light.? Neck: Normal inspection.? Neck supple.? CVS: Normal heart rate and rhythm.? Pulses normal.? Respiratory: No respiratory distress.? Breath sounds normal.? Abdomen: Soft and nontender.? Skin: Skin warm and dry.? Normal skin color.? Normal skin turgor.? Extremities: No lower extremity edema.? No calf ttp. 5/5 strength to bilateral upper and lower extremities Neuro: Oriented X 3.? No motor deficit.? No sensory deficit. CN 2-12 intact Vital Signs: Vital Signs - 24 hr 09/13/25 13:27 09/13/25 15:34 09/13/25 18:58 Temperature 98.2 F 98.9 F 98.1 F Pulse Rate 117 H 72 71 Respiratory Rate 18 10 L 17 Blood Pressure 140/92 H 137/87 128/87 Pulse Oximetry 97 100 95 Oxygen Delivery Method Room Air Room Air Room Air BMI result Body Mass Index 19.9 vss Course Course Course Narrative: This is an RME: Additional HPI, ROS, PE not included below will be deferred to primary provider. RME assessment and note performed by: Lyly Roque PA-C This is a 54-bovp-scd-female, with a hx of depression, eating disorder (anorexia nervosa/bingeing and purging) daily marijuana use, alcohol use, alcoholic pancreatitis, takotsubo cardiomyopathy, who presents to the ER with a complaints of drinking myself to . Reporting abdominal pain. No drug use. Plan: Labs, UA, ethanol, drug screen Reevaluation(s) Reevaluation #1: Patient's CBC with elevated MCV likely in the setting of chronic alcohol abuse no anemia noted at this time. Chemistry and lipase still pending. Salicylates acetaminophen negative. Ethanol still pending. CT scan still pending. Time: 14:24 Reevaluation #2: Patient appears to have elevated transaminases ALT 77 AST 177 alk-phos also elevated 160 this could be from alcoholic hepatitis. Lipase negative I do not suspect acute pancreatitis however will obtain CT scan at this time. Time: 14:38 Time: 16:18 Additional Reevaluation(s): Kylie Ambrose NP -- Signed out to me from previous provider, pending UA and CT. 7:18 PM 09/13/2025 (Kylie Ambrose NP): A CT with evidence of pancreatitis. She has no leukocytosis here, her lipase level was flat LFTs were mildly elevated. We will plan to admit for pancreatitis and pain control, given she did ask for additional pain control in the ED, as well as alcohol withdrawal. 7:35 PM: Signed out to hospitalist Dr. Eligio Middleton. Added Zosyn for abx coverage per their request. Impression: Acute pancreatitis. Nonocclusive splenic vein thrombus. Interval increase in size of cyst in the tail of the pancreas, likely walled-off necrosis, measuring up to 2.0 cm. Multiple subcentimeter low attenuating lesions in the pancreas, likely the sequela of pancreatitis. Follow up is recommended. Medical Decision Making Medical Decision Making MDM Narrative: Patient with history of pancreatitis, anorexia nervosa, and heavy alcohol use presents with left-sided abdominal pain and concern for recurrent pancreatitis. Also notable for potential alcohol withdrawal risk and passive suicidal ideation while seeking help for eating disorder. Problem #1: Abdominal pain ? rule out recurrent pancreatitis Assessment: Left-sided abdominal pain radiating to back in patient with prior pancreatitis and heavy alcohol use. Left upper quadrant tenderness on exam. Plan: Obtain laboratory studies including lipase, CMP, CBC, lipase CT abdomen/pelvis with contrast to evaluate pancreas and abdominal organs. IV fluid resuscitation (initiated). Problem #2: Heavy alcohol use / risk of withdrawal Assessment: Reports daily heavy alcohol consumption; last drink ~6 hours ago; history queried for withdrawal seizures (none reported). Plan: Monitor for signs of alcohol withdrawal while in ED. --> CIWA ordered Laboratory studies as above to assess metabolic status. Problem #3: Anorexia nervosa / eating disorder Assessment: Long-standing anorexia nervosa with vomiting after eating, poor intake, no prior inpatient treatment; patient actively seeking inpatient program. Plan: Notify care team and eating-disorder program resources for evaluation and disposition. Problem #4: Passive suicidal ideation Assessment: Patient denies active intent or plan but states she ?I dont want to be alive.? Plan: Psychiatry/social work consultation for safety assessment. Placed on a section [address] signed [address] my attending Dr[address] Johnie Mota Lab Data 09/13/25 13:49 09/13/25 13:49 Labs: Lab Results 09/13/25 09/13/25 Range/Units 13:49 16:41 WBC 6.1 (4.8-10.8) X10*3/uL RBC 3.65 L (4.20-5.50) X10*6/uL Hgb 13.5 (12.0-16.0) g/dl Hct 37.8 (37.0-47.0) % MCV 103.6 H (80.0-98.0) fL MCH 37.0 H (27.0-33.0) pg MCHC 35.7 H (31.0-35.0) g/dl RDW 15.1 (11.0-16.0) % Plt Count 162 D (160-400) X10*3/uL MPV 10.8 (9.4-12.3) fL Immature Gran % (Auto) 0.5 H (0.0-0.4) % Neut % (Auto) 60.8 (45-73) % Lymph % (Auto) 32.2 (20-40) % [place] % (Auto) 5.9 (2-11) % Eos % (Auto) 0.3 (0-4) % Baso % (Auto) 0.3 (0-2) % Lymph # (Auto) 2.0 (1.2-4.9) X10*3/uL [place] # (Auto) 0.4 (0.1-1.2) X10*3/uL Eos # (Auto) 0.0 (0.0-0.4) X10*3/uL Baso # (Auto) 0.0 (0.0-0.2) X10*3/uL Abs Immat Gran (auto) 0.03 (0.00-0.03) X10*3/uL Absolute Neuts (auto) 3.7 (2.0-8.3) x10*3/uL Absolute Nucleated RBC 0.000 (0.0-0.012) X10*3/uL Nucleated RBC % (auto) 0.0 (0.0-0.2) /100WBC Sodium 137 (135-145) mmol/L Potassium 3.3 (3.3-5.1) mmol/L Chloride 102 (96-108) mmol/L Carbon Dioxide 27 (22-29) mmol/L Anion Gap 11 L (12-20) BUN 5 L (9-16) mg/dL Creatinine 0.49 L (0.5-1.4) mg/dL Estim Creat Clear Calc 133.5 Estimated GFR > 60 Random Glucose 129 H (60-115) mg/dL Calcium 8.3 L (8.4-10.2) mg/dL Magnesium 1.6 (1.6-2.6) mg/dL Total Bilirubin 0.6 (0.0-1.0) mg/dL AST 177 H (5-31) U/L ALT 77 H (0-31) U/L Alkaline Phosphatase 160 H (39-117) U/L Total Protein 6.2 L (6.5-8.0) g/dL Albumin 3.1 L (3.5-5.0) g/dL Lipase 19 (8-78) U/L Urine Color Dark Yellow Urine Appearance Clear Urine pH 7.0 (5.0-9.0) Ur Specific [place] 1.015 (1.005-1.025) Urine Protein Trace (Neg-Trace) mg/dL Urine Glucose (UA) Negative (Negative) mg/dL Urine Ketones Trace (Negative) mg/dL Urine Blood Negative (Negative) Urine Nitrite Negative (Negative) Ur Leukocyte Esterase Trace H (Negative) Urine RBC 0-2 (0-2) /HPF Urine WBC 0-5 (0-5) /HPF Ur Squamous Epith Cells 6-10 (0-2) /HPF Urine Bacteria Trace (None Seen) Hyaline Casts 0-2 (0-2) /LPF Urine Test NEGATIVE (NEGATIVE) Salicylates < 5.0 L (15-30) mg/dL Urine Opiates Screen Not Detected (Not Detect) Ur Buprenorphine Scrn Not Detected (Not Detect) ng/mL Ur Oxycodone Screen Not Detected (Not Detect) ng/mL Urine Methadone Screen Not Detected (Not Detect) ng/mL Urine Fentanyl Screen Not Detected (Not Detect) Acetaminophen < 3 (<30) mcg/mL Ur Barbiturates Screen POSITIVE H (Not Detect) Ur Phencyclidine Scrn Not Detected (Not Detect) Ur Amphetamines Screen Not Detected (Not Detect) U Benzodiazepines Scrn Not Detected (Not Detect) Urine Cocaine Screen POSITIVE H (Not Detect) U Marijuana (THC) Screen POSITIVE H (Not Detect) Ethyl Alcohol < 10 mg/dL Medications Administered Generic Name Dose Route Start Last Admin Trade Name Freq PRN Reason Stop Dose Admin Phenobarbital Sodium 172 mg 09/13/25 18:00 09/13/25 18:31 Phenobarbital Sodium 130 Mg/Ml Vial Im Q3hx2 IM 09/13/25 21:01 172 mg Q3H ROCKY Administration Protocol Discontinued Medications Generic Name Dose Route Start Last Admin Trade Name Freq PRN Reason Stop Dose Admin Sodium Chloride 1,000 mls @ 999 mls/hr 09/13/25 14:15 09/13/25 14:31 Ns IV 09/13/25 15:15 999 mls/hr .Q1H1M ROCKY Administration Iohexol 100 ml 09/13/25 18:13 09/13/25 18:14 Iohexol 350 Mg/Ml 100 Ml Infus..Btl IV 09/13/25 18:14 70 ml ONCE ONE Administration Morphine Sulfate 2 mg 09/13/25 17:20 09/13/25 18:01 Morphine Sulfate 4 Mg/Ml Cartridge IVPUSH 09/13/25 17:21 2 mg ONCE ONE Administration Protocol Ondansetron HCl 4 mg 09/13/25 14:13 09/13/25 14:31 Ondansetron Hcl 4 Mg/2 Ml Vial IVPUSH 09/13/25 14:14 4 mg ONCE ONE Administration Phenobarbital Sodium 229 mg 09/13/25 15:00 09/13/25 15:22 Phenobarbital Sodium 130 Mg/Ml Im Once IM 09/13/25 15:01 229 mg ONCE ONE Administration Protocol Critical Care Time Critical Care Time Critical Care Time: Yes Total Critical Care Time: 35 Attestation: I attest to this time spent taking care of the patient, obtaining history, physical, reviewing labs, imaging, treatment of patients condition +/- specialist/hospitalist consult +/- procedure Discharge Plan Discharge Clinical Impression: Depression, Anxiety, Marijuana use Prescriptions: No Action sertraline 100 mg tablet 100 mg PO DAILY sertraline 25 mg tablet 25 mg PO DAILY acetaminophen 325 mg Tablet 325 mg PO QID PRN (Reason: Pain) metoprolol succinate 25 mg tablet extended release 24 hr 25 mg PO DAILY Qty: 90 0RF ondansetron 4 mg tablet,disintegrating 4 mg PO Q8H PRN (Reason: nausea and vomiting) Qty: 20 0RF hydroxyzine HCl 50 mg tablet 50 mg PO Q8H PRN (Reason: Anxiety) oxycodone 5 mg tablet 5 mg PO TID PRN (Reason: pain (scale score 7-10)) Qty: 6 0RF Rx Instructions: Partial Fill upon patient request. Take one tablet up to three times a day for severe pain. polyethylene glycol 3350 17 gram/dose powder 17 g PO DAILY PRN (Reason: constipation) Qty: 119 0RF Rx Instructions: Take 17 grams daily as needed for constipation docusate sodium [Colace] 100 mg capsule 100 mg PO BID PRN (Reason: constipation) Qty: 30 0RF Rx Instructions: Take one capsule twice a day as needed for constipation Print Language: Cameroonian
--- NOTE | 2025-09-13 13:31 | ECG_ITS ---
Test Reason : chest pain Blood Pressure : */* mmHG Vent. Rate : 89 BPM Atrial Rate : 89 BPM P-R Int : 118 ms QRS Dur : 74 ms QT Int : 354 ms P-R-T Axes : 22 64 -8 degrees QTcB Int : 430 ms Normal sinus rhythm Nonspecific ST and T wave abnormality Abnormal ECG When compared with ECG of 02-Mar-2025 03:00, Criteria for Septal infarct are no longer Present T wave inversion now evident in Anterior leads Referred By: Lyly Roque Electronically Signed By: CORNELIA PALOMARES MD
[2025-09-13 14:00] LABS: MANUAL DIFF FLAG NO
[2025-09-13 14:03] LABS: Hematocrit 37.8 % (37.0-47.0); Hemoglobin 13.5 g/dl (12.0-16.0); Imm Gran Abs Auto 0.03 X10*3/uL (0.00-0.03); Imm Gran Pct Auto 0.5 % (0.0-0.4); Lymphocytes Absolute Auto 2.0 X10*3/uL (1.2-4.9); Mean Corpuscular HGB Conc 35.7 g/dl (31.0-35.0); Mean Corpuscular Hemoglobin 37.0 pg (27.0-33.0); Mean Corpuscular Volume 103.6 fL (80.0-98.0); NRBC Abs Auto 0.000 X10*3/uL (0.0-0.012); NRBC Pct Auto 0.0 /100WBC (0.0-0.2); Platelet Count 162 X10*3/uL (160-400); Red Blood Count 3.65 X10*6/uL (4.20-5.50); White Blood Count 6.1 X10*3/uL (4.8-10.8)
[2025-09-13 14:22] LABS: Acetaminophen LAB < 3 mcg/mL (<30); Salicylate < 5.0 mg/dL (15-30)
[2025-09-13 14:27] LABS: Anion Gap 11 (12-20); Blood Urea Nitrogen 5 mg/dL (9-16); Calcium 8.3 mg/dL (8.4-10.2); Carbon Dioxide 27 mmol/L (22-29); Chloride 102 mmol/L (96-108); Creatinine Clr Calc Pharmacy 133.5; Estimated Glomerular Filt Rate > 60; Magnesium 1.6 mg/dL (1.6-2.6); Potassium 3.3 mmol/L (3.3-5.1); Sodium 137 mmol/L (135-145)
[2025-09-13 14:28] LABS: Alanine Aminotransferase 77 U/L (0-31); Albumin Level 3.1 g/dL (3.5-5.0); Alkaline Phosphatase 160 U/L (39-117); Aspartate Amino Transferase 177 U/L (5-31); Lipase 19 U/L (8-78); Total Protein 6.2 g/dL (6.5-8.0)
--- NOTE | 2025-09-13 14:35 | PC.NURSE ---
Despite denying s.i. during initial interview, pt admitted to provider she is currently having s.i. thoughts without a plan. Pt placed on 1:1 observation.
--- NOTE | 2025-09-13 14:37 | PC.NURSE ---
Pt now placed on sect. 12 by provider
[2025-09-13] MEDS: PHENobarbitaL sodium 130 MG/ML IM ONCE 229 MG IM (15:22)
[2025-09-13 15:34] VITALS: BP 137/87; PULSE 72; RESP 10; TEMP 37.2; O2SAT 100
[2025-09-13 16:57] LABS: Cannabinoid Screen Urine POSITIVE (Not Detect)
[2025-09-13 16:59] LABS: Appearance Urine Clear; Glucose Urine UA Negative (Negative); PH 7.0 (5.0-9.0); Specific Gravity - Urine 1.015 (1.005-1.025); UMIC TRIGGER UA YES; UPreg QC Valid YES
[2025-09-13] MEDS: iohexoL 350 MG/ML 100 ML INFUS..BTL IV (18:14)
[2025-09-13] MEDS: PHENobarbitaL sodium 130 MG/ML VIAL IM Q3Hx2 172 MG IM ×2 (18:31→21:29)
[2025-09-13 18:58] VITALS: BP 128/87; PULSE 71; RESP 17; TEMP 36.7; O2SAT 95
--- NOTE | 2025-09-13 21:33 | HO.NURTONUR ---
Pt here w/ c/o etoh abuse (approx 1 sleeve of nips/day), c/o s.i. and requesting detox. Pt also c/o abd pain assoc w/ nausea and CT +pancreatitis. Pt started on phenobarb protocol and zosyn for the pancreatitis. Pt is on a sect 12 and requires a 1:1. Pt has had no behavior issues in the ED.
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
[2025-09-13 22:34] VITALS: BP 135/94; PULSE 61; RESP 14; TEMP 36.6; O2SAT 100
[2025-09-13] MEDS: Lactated Ringers 1,000 ML 125 ML IVCONT (22:35)
--- OUTSIDE RECORDS SUMMARY | 2025-09-13 22:35 | XMS_ITS | Encounter Summary ---
Author Organization [facility] Address [address] [address] Phone Care Team Providers Care Commercial Lines Insurance Agent Name Role Phone Munira Varela Marilu CLINICAL COUNSELOR Primary Care Provider [phone] Jacinta Jenny CLINICAL COUNSELOR Primary Care Provider [phone] Encounter Details Date Type Department Care Team (Late st Contact Info) Description 07/29/2023 Procedure Pass [facility], Ct Scan - [facility] [address] [place] [address] Social History Tobacco Use Types Packs/Day Years [...] 1:58 PM EDT Krissy Oneill RN * [place] Suicide Severity Rating Scale (Screener/Recent Self-Report) Question Answer Date of Assessment Author 1. Wish to be (Past 1 Month) No 023 1:58 PM EDT Krissy Oneill RN 2. Non-Specific Active Suici mercedes Thoughts (Past 1 Month) No 07/29/2023 1:58 PM EDT Jerome Oneill RN 6. Suicidal Behavior (Lifetime) No 1:58 PM EDT Krissy Oneill RN documented as of this encounter Plan of Treatment Upcoming Encounters Date Type Department Care Team (Late st Contact Info) Description 11/08/2025 11:30 AM EST Office Visit [facility] [address] [address] Jenny Workman CNP [address] [place] [address] [email or web address] documented as of this encounter Visit Diagnoses Not on filedocumented in this encounter Care Teams Commercial Lines Insurance Agent Relationship Specialty Start Date End Date Munira Varela CNP [address] [place] [address], 2nd [place] [address] PCP - General Nurse Practitioner 02/03/23 08/10/23 Jenny Workman CNP [address] [place] [address] [email or web address] PCP - General Nurse Practitioner 08/11/23 documented as of this encounter Additional Source Comments The information contained in this document represents components of the legal health record. It is not the complete legal health record.[facility]
--- OUTSIDE RECORDS SUMMARY | 2025-09-13 22:35 | XMS_ITS | Encounter Summary ---
Author Organization [facility] Address [address] [address] Phone Care Team Providers Care Gas Leak Inspector Helper Name Role Phone Munira Varela Marilu TAX ATTORNEY Primary Care Provider [phone] Jacinta Jenny TAX ATTORNEY Primary Care Provider [phone] Encounter Details Date Type Department Care Team (Late st Contact Info) Description 07/29/2023 Procedure Pass [facility], Ct Scan - [facility] [address] [place] [address] Social History Tobacco Use Types Packs/Day Years [...] 1:58 PM EDT Krissy Oneill RN * [place] Suicide Severity Rating Scale (Screener/Recent Self-Report) Question [...] Description 11/08/2025 11:30 AM EST Office Visit [facility] [address] [address] Jenny Workman CNP [address] [place] [address] [email or web address] documented as of this encounter Visit Diagnoses Not on filedocumented in this encounter Care Teams Gas Leak Inspector Helper Relationship Specialty Start Date End Date Munira Varela CNP [address] [place] [address], 2[address] [place] [address] PCP - General Nurse Practitioner 02/03/23 08/10/23 Jenny Workman CNP [address] [place] [address] [email or web address] PCP - General Nurse Practitioner 08/11/23 documented as of this encounter Additional Source Comments The information contained in this document represents components of the legal health record. It is not the complete legal health record.[facility]
--- OUTSIDE RECORDS SUMMARY | 2025-09-13 22:35 | XMS_ITS | Encounter Summary ---
Author Organization [facility] Address [address] [address] Phone Care Team Providers Care Egg Trayer Name Role Phone Muniar Varela Marilu BAR CATCHER Primary Care Provider [phone] Jacinta Jenny BAR CATCHER Primary Care Provider [phone] Encounter Details Date Type Department Care Team (Late st Contact Info) Description 07/29/2023 Procedure Pass [facility], Ct Scan - [facility] [address] [place] [address] Social History Tobacco Use Types Packs/Day Years [...] 1:58 PM EDT Krissy Oneill RN * [place] Suicide Severity Rating Scale (Screener/Recent Self-Report) Question [...] Description 11/08/2025 11:30 AM EST Office Visit [facility] [address] [address] Jenny Workman CNP [address] [place] [address] [email or web address] documented as of this encounter Visit Diagnoses Not on filedocumented in this encounter Care Teams Egg Trayer Relationship Specialty Start Date End Date Munira Varela CNP [address] [place] [address], 2nd [place] [address] PCP - General Nurse Practitioner 02/03/23 08/10/23 Jenny Workman CNP [address] [place] [phone] [email or web address] PCP - General Nurse Practitioner 08/11/23 documented as of this encounter Additional Source Comments The information contained in this document represents components of the legal health record. It is not the complete legal health record.[facility]
--- OUTSIDE RECORDS SUMMARY | 2025-09-13 22:35 | XMS_ITS | Encounter Summary ---
Author Organization [facility] Address [address] [facility] [address] [place] [address] Phone Care Team Providers Care Asian Studies Professor Name Role Phone Munira Varela CNP Primary Care Provider [phone] Munira Varela CNP Primary Care Provider + [phone] Jenny Workman CNP Primary Care Provider [phone] Encounter Details Date Type Department Care Team (Late st Contact Info) Description 07/12/2021 Telephone [facility] [address] [place] [address] Munira Varela CNP [address] [facility], [address] [place] [address] [email or web address] Social History Tobacco Use Types Packs/Day Years [...] Encounters Date Type Department Care Team (Late Contact Info) Description 11/08/2025 11:30 AM EST Office Visit [facility] [address] [place] [address] Jenny Workman CNP [address] [facility] [address] [place] [address] documented as of this encounter Visit Diagnoses Not on filedocumented in this encounter Care Teams Asian Studies Professor Relationship Specialty Start Date End Date Munira VarelaMADDI [facility], [address] [place] [address] PCP - General Family Medicine 05/08/21 02/02/23 Munira VarelaMADDI rios [address] [address] PCP - General Nurse Practitioner 02/03/23 08/10/23 Jenny Workman CNP [address] [facility], [facility] [address] [place] [address] PCP - General Nurse Practitioner 08/11/23 documented as of this encounter Additional Source Comments The information contained in this document represents components of the legal health record. It is not the complete legal health record.[facility]
--- OUTSIDE RECORDS SUMMARY | 2025-09-13 22:35 | XMS_ITS | Clinical Summary ---
Author Organization [facility] Address [address] [place] [address] Phone Care Team Providers Care Software Validation Engineer Name Role Phone Jenny Workman MADDI Primary Care Provider Allergies No known active allergies Medications fluconazole (DIFLUCAN) 150 MG tabletIndication s:Yeast infection Take one tablet today and repeat second dose if not better after three days. 2 tablet 01/13/2024 Active hydrOXYzine (ATARAX) 50 MG tabletIndication s:BLANCA (generalized anxiety disorder) TAKE 1 TABLET BY MOUTH EVERY 8 HOURS NEEDED 30 tablet 04/10/2025 Active sertraline (ZOLOFT) 100 MG tabletIndication s:BLANCA (generalized anxiety disorder),Modera te episode of recurrent major depressive disorder Take 1 tablet (100 mg total) by mouth every morning. 90 tablet 08/09/2025 Active sertraline (ZOLOFT) 25 MG tabletIndication s:BLANCA (generalized anxiety disorder),Modera te episode of recurrent major depressive disorder TAKE 1 TABLET BY MOUTH DAILY WITH 100MG DOSE 90 tablet 08/09/2025 Active Active Problems Problem Noted Date Diagnosed [...] she resume therapy and in fact suggested [facility] referral. She declines. 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 I do think she would benefit from [...] Food choices lack diversity. Urged to call superintendent factory Assessment & Plan (05/15/2021 6:33 PM EDT): [...] Encounters Date Type Department Care Team Description 07/25/2025 Refill [facility] [address] [place] [address] Jenny Workman CNP Medication Refill from Last [...] Industry Job Start Date Job End Date [employer] Not on file Not on file Not [...] 01/08/2024 3:15 PM EDT Plan of Treatment Upcoming Encounters Date Type Department Care Team (Late st Contact Info) Description 11/08/2025 11:30 AM EST Office Visit [facility] [address] [place] [address] Jenny Workman, SENIOR MARKETING DATA ANALYST [address] [facility], [address] [place] [address] Health Maintenance Due Date Last Done Comments DEPRESSION SCREENING 2013 SMOKING Hx and SMOKELESS TOBACCO SCREENING 2014 CHLAMYDIA SCREENING 01/07/2025 01/08/2024, 07/26/2021, 03/13/2021, Additional history exists INFLUENZA VACCINE (#1) 2025 06/26/2022 COVID-19 VACCINE ( season) 2025 08/12/2021, 11/16/2020, 10/19/2020 PAP SMEAR 01/07/2027 01/08/2024 Adult Td,Tdap Booster 02/04/2033 02/04/2023, 013 PNEUMOCOCCAL VACCINES (0-49 years) Aged Out 2001, 2001, 2001 No longer eligible based on patient's age to complete this topic HIB VACCINES Completed 08/18/2002, 11/05, 2001, Additional history exists HPV VACCINES Completed 01/19/2015, 01/2013, 11/02/2012 MENINGOCOCCAL VACCINES (ACWY) Completed 10/29/2018 HEPATITIS C SCREENING Completed 03/13/2021 , 03/13/2021, 03/26/2020, Additional history exists HIV ONE-TIME SCREENING (18-65 YEARS) Completed 01/08/2024 [...] EDT) CHLAMYDIA TRACHOMATIS Not Detected Not Detected [facility] NEISERIA GONORRHOEAE Not Detected Not Detected [facility] SPECIMEN TYPE ENDOCERVICAL [employer]OE [employer] Other (Endocervical) 01/08/2024 3:32 PM EDT 01/08/2024 6:44 PM EDT Mejia Rucker CN LAB GENERAL ORDERABLES Final Result Performing Organization Address City/State/[facility] Co de Phone Number [address] [address] * Pap Test (01/08/2024 12:00 AM EDT) Report [address] [address] Trackmobile Operator: Reva Walden MD SINGLE STAYER OPERATOR Cytology Report FINAL DIAGNOSIS A. PAP SMEAR [...] PAP SMEAR (SUREPATH) CE Patient Name: MAGNOLIA WEST : 2000 (Age: 23) Sex: F Institution: [facility] Location: [facility] Date of Collection: 01/08/2024 Date of Reported: 01/15/2024 14:40 Results to: Mejia Rucker [facility] Final Diagnosis A. PAP SMEAR (SUREPATH) CE: SPECIMEN ADEQUACY: Satisfactory for evaluation; transformation zone present. INTERPRETATION: NEGATIVE FOR INTRAEPITHELIAL LESION OR MALIGNANCY. Parakeratosis [facility] Conversion Type (Conversion Source) 01/08/2024 01/11/2024 9:25 AM EDT us Mejia Rucker [facility] CYTOLOGY ORDERABLES Edited R esult - Final Performing Organization Address City/[facility]/ZIP Co de Phone Number [address] [address] * Hepatitis C antibody, qualitative (03/13/2021 3:53 PM EDT) HCV NON-REACTIV E NON-REACTI VE [facility] Blood 03/13/2021 3:53 PM EDT 03/13/2021 3:54 PM EDT Dereck Lagos MD LAB BLOOD BKR ORDERABLES Tamie l Result [address] [address] from Last 3 Months or Most Recently Relevant to Health Maintenance Insurance [facility] [place] [address] [place] [id number] [place] [address] [place] [address] [place] [address] [place] [address] [facility] Care Teams Software Validation Engineer Relationship Specialty Start Date End Date Jenny Workman CNP [address] [place] [address], [address] [place], [place] [id number] [email or web address] PCP - General Nurse Practitioner 08/11/23 Additional Source Comments The information contained in this document represents components of the legal health record. It is not the complete legal health record.[facility]
--- OUTSIDE RECORDS SUMMARY | 2025-09-13 22:35 | XMS_ITS | Encounter Summary ---
Author Organization [facility] Address [address] [address] Phone Care Team Providers Care Otr Company Driver Name Role Phone Munira Varela Marilu WIRE ANNEALER Primary Care Provider [phone] Jacinta Jenny WIRE ANNEALER Primary Care Provider [phone] Encounter Details Date Type Department Care Team (Late st Contact Info) Description 07/29/2023 Procedure Pass [facility], Ct Scan - [facility] [address] [place] [address] Social History Tobacco Use Types Packs/Day Years [...] 1:58 PM EDT Krissy Oneill RN * [place] Suicide Severity Rating Scale (Screener/Recent Self-Report) Question [...] Description 11/08/2025 11:30 AM EST Office Visit [facility] [address] [address] Jenny Workman CNP [address] [place] [phone] [email or web address] documented as of this encounter Visit Diagnoses Not on filedocumented in this encounter Care Teams Otr Company Driver Relationship Specialty Start Date End Date Munira Varela CNP [address] [place] [address], [address]nd [place] [address] PCP - General Nurse Practitioner 02/03/23 08/10/23 Jenny Workman CNP [address] [place] [phone] [email or web address] PCP - General Nurse Practitioner 08/11/23 documented as of this encounter Additional Source Comments The information contained in this document represents components of the legal health record. It is not the complete legal health record.[facility]
--- OUTSIDE RECORDS SUMMARY | 2025-09-13 22:35 | XMS_ITS | Encounter Summary ---
Author Organization [facility] Address [address] [address] Phone Care Team Providers Care Machine Helper Name Role Phone Munira Varela Marilu CHAIR POST MACHINE OPERATOR Primary Care Provider [phone] Jacinta Jenny CHAIR POST MACHINE OPERATOR Primary Care Provider [phone] Encounter Details Date Type Department Care Team (Late st Contact Info) Description 07/29/2023 Procedure Pass [facility], Ct Scan - [facility] [address] [place] [address] Social History Tobacco Use Types Packs/Day Years [...] 1:58 PM EDT Krissy Oneill RN * [place] Suicide Severity Rating Scale (Screener/Recent Self-Report) Question [...] Description 11/08/2025 11:30 AM EST Office Visit [facility] [address] [address] Jenny Workman CNP [address] [place] [address] [email or web address] documented as of this encounter Visit Diagnoses Not on filedocumented in this encounter Care Teams Machine Helper Relationship Specialty Start Date End Date Munira Varela CNP [address] [place] [address], [address] [place] [address] PCP - General Nurse Practitioner 02/03/23 08/10/23 Jenny Workman CNP [address] [place] [address] [email or web address] PCP - General Nurse Practitioner 08/11/23 documented as of this encounter Additional Source Comments The information contained in this document represents components of the legal health record. It is not the complete legal health record.[facility]
[2025-09-14] VITALS (9 sets, daily range): BP systolic 114–132; BP diastolic 69–95; PULSE 53–83; RESP 10–18; TEMP 36.2–36.7; O2SAT 93–100
[2025-09-14 03:51] LABS: Hematocrit 34.0 % (37.0-47.0); Hemoglobin 12.1 g/dl (12.0-16.0); Imm Gran Abs Auto 0.02 X10*3/uL (0.00-0.03); Imm Gran Pct Auto 0.4 % (0.0-0.4); Lymphocytes Absolute Auto 2.7 X10*3/uL (1.2-4.9); MANUAL DIFF FLAG SCAN; Mean Corpuscular HGB Conc 35.6 g/dl (31.0-35.0); Mean Corpuscular Hemoglobin 37.9 pg (27.0-33.0); Mean Corpuscular Volume 106.6 fL (80.0-98.0); NRBC Abs Auto 0.000 X10*3/uL (0.0-0.012); NRBC Pct Auto 0.0 /100WBC (0.0-0.2); PLT CLUMP 1; Red Blood Count 3.19 X10*6/uL (4.20-5.50); SCAN SMEAR FLAG 1
[2025-09-14 04:02] LABS: Alanine Aminotransferase 59 U/L (0-31); Albumin Level 2.6 g/dL (3.5-5.0); Alkaline Phosphatase 127 U/L (39-117); Anion Gap 11 (12-20); Aspartate Amino Transferase 129 U/L (5-31); Blood Urea Nitrogen 5 mg/dL (9-16); Calcium 7.8 mg/dL (8.4-10.2); Carbon Dioxide 26 mmol/L (22-29); Chloride 106 mmol/L (96-108); Creatinine Clr Calc Pharmacy 128.4; Estimated Glomerular Filt Rate > 60; Potassium 3.8 mmol/L (3.3-5.1); Sodium 139 mmol/L (135-145); Total Protein 5.5 g/dL (6.5-8.0)
[2025-09-14 04:36] LABS: Platelet Count 108 X10*3/uL (160-400); White Blood Count 4.5 X10*3/uL (4.8-10.8)
[2025-09-14] MEDS: Lactated Ringers 1,000 ML 125 ML IVCONT ×3 (06:25→22:36)
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
[2025-09-14] MEDS: Thiamine HCL 100 MG in 0.9 % Sodium Chloride 100 ML 202 MG IV (08:22)
--- NOTE | 2025-09-14 09:03 | PHA.MEDREC ---
Pharmacy Consult ? Medication Reconciliation Pharmacy has completed the medication reconciliation. Spoke with patient to confirm medications. She takes 150 mg of sertraline daily instead of 125 mg as prescribed. She has not taken metoprolol succinate 25 mg tabs in weeks, left off of med rec. She still uses hydroxyzine prn for anxiety. She uses OTC Tylenol and ibuprofen prn for pain. She did not take any medications yesterday besides Tylenol.
--- NOTE | 2025-09-14 09:51 | MHC.CM.PN ---
Patient will benefit from a Care Team Consult r/t SI; CM has initiated and will follow for dc planning. Patient lives alone.
[2025-09-14 13:52] LABS: Folate 9.8 ng/mL (> or = 4.0); Vitamin B12 321 pg/mL (200-900)
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
[2025-09-14] MEDS: 0.9 % Sodium Chloride Flush 3 ML SYRINGE IVFLUSH (15:28)
--- NOTE | 2025-09-14 16:06 | PM.PSYCN ---
History of Present Illness Date of Service: 09/14/2025 Chief Complaint: Acute Alcoholic Pancreatitis Reason for Consult: depression/anxious mood Discussed with referring provider: Yes Sources of Information: patient interviewed, chart reviewed and crisis/core team assessment reviewed HPI Narrative: Ms. Melgoza is a 25 year-old woman with hx of depression, alcohol use disorder and restrictive eating who self presented to [facility] reporting feeling in pain and weak. She was found to have acute pancreatitis. Pt reported drinking vodka (12 nips daily) for several months. She also endorsed depressed mood, hopelessness, not active plan or intent but reported wishing to rot away. Pertinent labs completed in the ED include CBC with macrocytic anemia, stable H&H, leukocytosis, thrombocytopenia; CMP without electrolyte abnormalities, BUN 5, Cr 0.51, creatinine clearance 128.4. Utox positive for THC, cocaine. BAL negative. Pt was started on phenobarb for alcohol withdrawal. Pt seen in the ED. Pt reports she has been very depressed for a long time. She reports mostly since 2019. However, recently since January of this year she has been using more alcohol, feels more hopeless, helpless, feeling she can just let herself . 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 She reports she decided to come to the hospital yesterday and not only ask for medical care but also care for her mental health. She reports cocaine was a one time use as she thought could make her feel better but realized that was not the case. However, she does report she struggles with alcohol use. She reports back in 2019 she was dx with restrictive eating disorder and purging. She reports she has not been in eating disorder program. She reports she has not lost significant weight but states it is really hard for her to think about gaining weight. She denies hx of psychosis or delusions. She denies hx of inpatient psychiatric admission. She denies Hx of suicide attempts. She currently does not have OP psych providers. Past Psychiatric History: No current OP psych providers. PCP has been prescribing sertraline. Medical Evaluation Reviewed: Yes [facility] Medical History (Updated 09/14/25 @ 16:41 by Carolina Templeton NP) Hepatic steatosis Thrombocytopenia Alcohol use disorder Alcoholic gastritis Takotsubo cardiomyopathy Binge-eating and purging type anorexia nervosa Closed fracture of cuboid bones of both feet with routine healing Tobacco use Marijuana use Trauma in childhood Anxiety Depression Surgical History H/O foot surgery Family History: unknown Substance History: alcohol use- more often since 2019 reports one time use of cocaine prior to this admission Trauma History: reports hx of trauma but details not discussed. Diagnostics Vital Signs (24Hr): Vital Signs - 24 hr 09/13/25 18:58 09/13/25 22:34 09/14/25 03:12 Temperature 98.1 F 97.8 F 98.0 F Pulse Rate 71 61 65 Respiratory Rate 17 14 12 Blood Pressure 128/87 135/94 H 127/84 Pulse Oximetry 95 100 95 Oxygen Delivery Method Room Air Room Air Room Air 09/14/25 06:19 09/14/25 08:25 09/14/25 08:38 Temperature 97.6 F 97.7 F Pulse Rate 53 59 Respiratory Rate 10 L 14 18 Blood Pressure 132/94 H 117/80 Pulse Oximetry 95 98 Oxygen Delivery Method Room Air Room Air 09/14/25 12:39 09/14/25 13:00 Temperature Pulse Rate 83 Respiratory Rate 17 16 Blood Pressure 128/95 H Pulse Oximetry 93 Oxygen Delivery Method Room Air BMI result Body Mass Index 19.9 Labs 09/14/25 03:38 09/14/25 03:37 Labs: Laboratory Results - last 48 hr 09/13/25 09/13/25 09/13/25 13:49 16:41 22:21 WBC 6.1 RBC 3.65 L Hgb 13.5 Hct 37.8 MCV 103.6 H MCH 37.0 H MCHC 35.7 H RDW 15.1 Plt Count 162 D MPV 10.8 Immature Gran % (Auto) 0.5 H Neut % (Auto) 60.8 Lymph % (Auto) 32.2 [place] % (Auto) 5.9 Eos % (Auto) 0.3 Baso % (Auto) 0.3 Lymph # (Auto) 2.0 [place] # (Auto) 0.4 Eos # (Auto) 0.0 Baso # (Auto) 0.0 Abs Immat Gran (auto) 0.03 Absolute Neuts (auto) 3.7 Absolute Nucleated RBC 0.000 Nucleated RBC % (auto) 0.0 Smear Tech's Comments Sodium 137 Potassium 3.3 Chloride 102 Carbon Dioxide 27 Anion Gap 11 L BUN 5 L Creatinine 0.49 L Estim Creat Clear Calc 133.5 Estimated GFR > 60 Random Glucose 129 H Lactic Acid 1.3 Calcium 8.3 L Phosphorus Magnesium 1.6 Total Bilirubin 0.6 AST 177 H ALT 77 H Alkaline Phosphatase 160 H Total Protein 6.2 L Albumin 3.1 L Lipase 19 Vitamin B12 Folate Urine Color Dark Yellow Urine Appearance Clear Urine pH 7.0 Ur Specific [place] 1.015 Urine Protein Trace Urine Glucose (UA) Negative Urine Ketones Trace Urine Blood Negative Urine Nitrite Negative Ur Leukocyte Esterase Trace H Urine RBC 0-2 Urine WBC 0-5 Ur Squamous Epith Cells 6-10 Urine Bacteria Trace Hyaline Casts 0-2 Urine Test NEGATIVE Salicylates < 5.0 L Urine Opiates Screen Not Detected Ur Buprenorphine Scrn Not Detected Ur Oxycodone Screen Not Detected Urine Methadone Screen Not Detected Urine Fentanyl Screen Not Detected Acetaminophen < 3 Ur Barbiturates Screen POSITIVE H Ur Phencyclidine Scrn Not Detected Ur Amphetamines Screen Not Detected U Benzodiazepines Scrn Not Detected Urine Cocaine Screen POSITIVE H U Marijuana (THC) Screen POSITIVE H Ethyl Alcohol < 10 09/14/25 09/14/25 09/14/25 03:37 03:38 12:50 WBC 4.5 L RBC 3.19 L Hgb 12.1 Hct 34.0 L MCV 106.6 H MCH 37.9 H MCHC 35.6 H RDW 15.4 Plt Count 108 L D MPV 11.2 Immature Gran % (Auto) 0.4 Neut % (Auto) 31.1 L Lymph % (Auto) 59.9 H [place] % (Auto) 6.2 Eos % (Auto) 2.0 Baso % (Auto) 0.4 Lymph # (Auto) 2.7 [place] # (Auto) 0.3 Eos # (Auto) 0.1 Baso # (Auto) 0.0 Abs Immat Gran (auto) 0.02 Absolute Neuts (auto) 1.4 L Absolute Nucleated RBC 0.000 Nucleated RBC % (auto) 0.0 Smear Tech's Comments VERIFIED Sodium 139 Potassium 3.8 Chloride 106 Carbon Dioxide 26 Anion Gap 11 L BUN 5 L Creatinine 0.51 Estim Creat Clear Calc 128.4 Estimated GFR > 60 Random Glucose 96 Lactic Acid Calcium 7.8 L D Phosphorus 4.1 Magnesium Total Bilirubin 0.4 AST 129 H ALT 59 H Alkaline Phosphatase 127 H Total Protein 5.5 L Albumin 2.6 L Lipase Vitamin B12 321 Folate 9.8 Urine Color Urine Appearance Urine pH Ur Specific [place] Urine Protein Urine Glucose (UA) Urine Ketones Urine Blood Urine Nitrite Ur Leukocyte Esterase Urine RBC Urine WBC Ur Squamous Epith Cells Urine Bacteria Hyaline Casts Urine Test Salicylates Urine Opiates Screen Ur Buprenorphine Scrn Ur Oxycodone Screen Urine Methadone Screen Urine Fentanyl Screen Acetaminophen Ur Barbiturates Screen Ur Phencyclidine Scrn Ur Amphetamines Screen U Benzodiazepines Scrn Urine Cocaine Screen U Marijuana (THC) Screen Ethyl Alcohol Mental Status Exam Mental Status Exam Narrative: Appearance: wearing hospital gown, fair hygiene, in NAD behavior: cooperative Psychomotor: no agitation or retardation noted Speech: clear, normal rate/rhythm/volume, spontaneous TP: linear TC: wanting treatment Mood: anxious and depressed Affect: congruent SI: passive HI: none VH/AH: none Delusions: none Insight/judgment: fair x 2. Memory/cog: alert, oriented x 3. grossly intact to conversational testing. Medications Medications Current Medications Acetaminophen (Acetaminophen 325 Mg Tablet) 650 mg PO Q6H PRN PRN Reason: Pain, Mild 1-3,fever,headache Albuterol/Ipratropium (Albuterol/Iprat 2.5/0.5mg 3 Ml Ampul.Neb) 3 ml INHALE Q4H PRN PRN Reason: Shortness of Breath/Wheezing Calcium Carbonate (Calcium Carbonate 750 Mg Tab.Chew) 750 mg PO Q4H PRN PRN Reason: Heartburn Enoxaparin Sodium (Enoxaparin Sodium 40 Mg/0.4 Ml Syringe) 40 mg SUBCUT Q24H [facility] Last Admin: 09/14/25 01:58 Dose: 40 mg Hydromorphone HCl (Hydromorphone Hcl 1 Mg/Ml Syringe) 0.5 mg IVPUSH Q4H PRN; Protocol PRN Reason: Pain, Severe (Pain Scale 7-10) Last Admin: 09/14/25 13:00 Dose: 0.5 mg Hydroxyzine HCl (Hydroxyzine Hcl 50 Mg Tablet) 50 mg PO Q8H PRN PRN Reason: Anxiety Lactated Ringer's (Lr) 1,000 mls @ 125 mls/hr IVCONT .Q8H [facility] Last Admin: 09/14/25 15:27 Dose: 125 mls/hr Thiamine HCl 100 mg/ Sodium (Chloride) 101 mls @ 202 mls/hr IV DAILY [facility] Last Infusion: 09/14/25 08:55 Dose: Infused Folic Acid 1 mg/ Sodium (Chloride) 50.2 mls @ 100.4 mls/hr IV DAILY [facility] Last Infusion: 09/14/25 11:08 Dose: Infused Magnesium Hydroxide (Milk Of Magnesia 30 Ml Oral.Susp) 30 ml PO DAILY PRN PRN Reason: Constipation Melatonin (Melatonin 3 Mg Tablet) 6 mg PO BEDTIME PRN PRN Reason: Insomnia Nicotine Polacrilex (Nicotine Polacrilex 2 Mg Gum) 2 mg BUCCAL Q1H PRN PRN Reason: Nicotine Cravings Last Admin: 09/14/25 15:24 Dose: 2 mg Ondansetron HCl (Ondansetron Hcl 4 Mg/2 Ml Vial) 4 mg IVPUSH Q8H PRN PRN Reason: Nausea and Vomiting Last Admin: 09/14/25 08:22 Dose: 4 mg Pharmacy Consult (Consult Rx Etoh Phenob Im/Po) 1 each MISCELLANE ONCE PRN; Protocol PRN Reason: Consult order Phenobarbital (Phenobarbital 30 Mg Tablet) 30 mg PO BID [facility]; Protocol Stop: 09/15/25 21:01 Last Admin: 09/14/25 08:27 Dose: 30 mg Phenobarbital (Phenobarbital 15 Mg Tablet) 15 mg PO BID [facility]; Protocol Stop: 09/17/25 21:01 Phenobarbital (Phenobarbital 15 Mg Tablet) 15 mg PO DAILY [facility]; Protocol Stop: 09/19/25 09:01 Polyethylene Glycol (Polyethylene Glycol 3350 17 Gm Powd.Pack) 17 gm PO DAILY PRN PRN Reason: Constipation Sertraline HCl (Sertraline Hcl 100 Mg Tablet) 100 mg PO DAILY [facility] Last Admin: 09/14/25 11:04 Dose: 100 mg Sertraline HCl (Sertraline Hcl 50 Mg Tablet) 50 mg PO DAILY [facility] Last Admin: 09/14/25 11:04 Dose: 50 mg Sodium Chloride (0.9 % Sodium Chloride Flush 3 Ml Syringe) 3 ml IVFLUSH QSHIFT [facility] Last Admin: 09/14/25 15:28 Dose: 3 ml Allergies Allergies Allergy/AdvReac Type Severity Reaction Status Date / Time No Known Allergies Allergy Verified 12/10/25 13:31 Assessment & Plan Assessment & Plan (1) MDD (major depressive disorder), recurrent severe, without psychosis: Status: Acute Code(s): F33.2 - Major depressive disorder, recurrent severe without psychotic features (2) Alcohol use disorder, moderate, dependence: Status: Acute Code(s): F10.20 - Alcohol dependence, uncomplicated Plan Ms. Melgoza is a 25 year-old woman with hx of depression, alcohol use, eating disorder who self presented due to pain and weakness, found to have acute pancreatitis. She also reported increased depression and passive SI. We discussed risks, benefits and alternative treatment options. She agrees to go inpatient psych for further safety, containment and stabilization. PLAN 1. Once medically cleared, please refer patient to care team for bed search for [facility]. Total time managing care of this patient today ____ minutes.
[2025-09-15] VITALS: BP 126/80; PULSE 62; RESP 16; TEMP 36.3; O2SAT 95
[2025-09-15 03:08] VITALS: BP 118/85; PULSE 61; RESP 16; TEMP 36.6; O2SAT 100
[2025-09-15] MEDS: Lactated Ringers 1,000 ML 125 ML IVCONT ×3 (05:52→16:30)
[2025-09-15 06:00] VITALS: BMI 22.6
[2025-09-15 08:00] VITALS: BP 127/78; PULSE 69; RESP 16; TEMP 36.4; O2SAT 99
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
[2025-09-15] MEDS: 0.9 % Sodium Chloride Flush 3 ML SYRINGE IVFLUSH (08:12)
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
[2025-09-15] MEDS: Thiamine HCL 100 MG in 0.9 % Sodium Chloride 100 ML 202 MG IV (11:06)
[2025-09-15 11:31] VITALS: BP 108/65; PULSE 71; RESP 18; TEMP 36.3; O2SAT 97
[2025-09-15 11:58] VITALS: BMI 22.6
--- NOTE | 2025-09-15 12:06 | MHC.CLN ---
CONSULT PT IS AT RISK FOR MALNUTRITION R/T POOR PO INTAKE SECONDARY TO DEPRESSION WITH ANOREXIA NERVOSA PT REPORTS PURPOSEFULLY STARVING HERSELF SECONDARY TO HER DEPRESSION AND SI PT IS 114% IBW RANGE INDICATES MILDLY OVER WT FOR HT, BMI 22.6 WNL WT HX REVEALS 4% NONSIGNIFICANT WT GAIN X6 MONTHS PT WITHOUT S/S MALNUTRITION AT THIS TIME BUT AT RISK NOTED ABOVE DIET RX; C/L VEGAN PT WITH POOR PO INTAKE HOME OFFICE CLAIMS EXAMINER-EXPECT PO INTAKE TO REMAIN LOW SECONDARY TO ACUTE PANCREATITIS PLS CONSULT RD IF PPN NEEDED/WARRANTED MONITOR PO INTAKE PT MAY BENEFIT FROM REFERRAL TO IN PATIENT EATING DISORDER HOSPITALIZATION SEE FULL ASSESSMENT
[2025-09-15 15:11] VITALS: BP 112/71; PULSE 62; RESP 18; TEMP 36.3; O2SAT 94
[2025-09-15 19:49] VITALS: BP 105/69; PULSE 62; RESP 18; TEMP 36.4; O2SAT 96
[2025-09-16 04:00] VITALS: BP 133/79; PULSE 60; RESP 18; TEMP 36.9; O2SAT 100
[2025-09-16 04:19] VITALS: BMI 22.2
[2025-09-16 08:00] VITALS: BP 123/85; PULSE 56; RESP 20; TEMP 36.3; O2SAT 100
[2025-09-16] MEDS: PHENobarbital 15 MG TABLET PO ×2 (08:35→20:28)
[2025-09-16] MEDS: Thiamine HCL 100 MG in 0.9 % Sodium Chloride 100 ML 202 MG IV (08:41)
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
[2025-09-16] MEDS: Nicotine 21 MG PATCH.TD24 TRANSDERMA (10:53)
[2025-09-16 12:00] VITALS: BP 117/74; PULSE 63; RESP 20; TEMP 36.5; O2SAT 98
[2025-09-16 16:00] VITALS: BP 95/58; PULSE 58; RESP 20; TEMP 36.4; O2SAT 97
[2025-09-16 19:16] VITALS: BP 104/59; PULSE 61; RESP 16; TEMP 36.6; O2SAT 95
[2025-09-16 23:19] VITALS: BP 104/63; PULSE 59; RESP 16; TEMP 36.2; O2SAT 97
[2025-09-17 03:12] VITALS: BP 120/73; PULSE 72; RESP 16; TEMP 36.5; O2SAT 98
[2025-09-17 06:00] VITALS: BMI 22.2
[2025-09-17 08:00] VITALS: BP 114/73; PULSE 64; RESP 20; TEMP 36.4; O2SAT 99
[2025-09-17] MEDS: PHENobarbital 15 MG TABLET PO ×2 (09:01→20:46)
[2025-09-17] MEDS: Thiamine HCL 100 MG in 0.9 % Sodium Chloride 100 ML 202 MG IV (09:01)
[2025-09-17] MEDS: Nicotine 21 MG PATCH.TD24 TRANSDERMA (09:03)
--- NOTE | 2025-09-17 11:14 | MHC.RECOVRN ---
Reason: T/W met with pt. in 467 following consult received for continued ETOH and DIANE use. Use/treatment hx: Pt reports that she has been drinking ETOH since age 21. She reports short intermittent periods of abstinence mostly due to medical complications (pancreatitis). Her longest period of abstinence was 3 months following last hospitalization. Current intake is 12 nips/day for the last 2 months. She has not attended any [facility] treatments. Re: psych-she had a therapist x 3 years but that therapist left and she did not wish to start over. PCP prescribes Zoloft. Re: DIANE pt reports i only used that once and did not even like it . Pt smokes marijuana, 3-4 hits from a bowl, daily at night to help her sleep. Pt reports significant childhood trauma, depression, anxiety and OCD. Denies wanting to hurt herself but does state I have no drive to live . Intervention: Pt was provided with education on MATTY and AUD resources including harm reduction. Denied need for StUD resources. Plan: Pt would like to review and think about MATTY and agrees to meet with [facility] tomorrow with decision. Pt's goal is to get into a dual dx program with peers that have similar treatment needs to hers. Any community referrals on hold until d/c disposition known. [facility] available PRN
--- NOTE | 2025-09-17 11:50 | MHC.CM.PN ---
Per , pt. to have endoscopy 09/18/25, then care team eval to return to psych unit.
[2025-09-17 12:00] VITALS: BP 136/74; PULSE 80; RESP 20; TEMP 36.9; O2SAT 94
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
[2025-09-17 16:00] VITALS: BP 100/63; PULSE 77; RESP 20; TEMP 36.1; O2SAT 98
[2025-09-17 19:25] VITALS: BP 105/70; PULSE 71; RESP 19; TEMP 36.4; O2SAT 99
[2025-09-17 23:24] VITALS: BP 116/71; PULSE 69; RESP 18; TEMP 36.9; O2SAT 98
[2025-09-18] VITALS (11 sets, daily range): BP systolic 81–119; BP diastolic 40–77; PULSE 52–70; RESP 16–20; TEMP 36.2–37.2; O2SAT 95–99; BMI 22.2
[2025-09-18] MEDS: Thiamine HCL 100 MG in 0.9 % Sodium Chloride 100 ML 202 MG IV (08:42)
[2025-09-18] MEDS: PHENobarbital 15 MG TABLET PO (08:44)
[2025-09-18] MEDS: Nicotine 21 MG PATCH.TD24 TRANSDERMA (08:45)
--- NOTE | 2025-09-18 11:24 | MHC.CM.PN ---
PT NOT YET MEDICALLY CLEARED, WILL NEED CARE TEAM EVAL PRIOR TO DC. DCP: [facility] VS HOME
--- NOTE | 2025-09-18 12:29 | MHC.CLN ---
F/U PT IS CURRENTLY NPO FOR EGD TODAY PREVIOUS INTAKE 50-100% OF CLEAR LIQUIDS FOLLOWING WITH TEAM
--- NOTE | 2025-09-18 13:28 | MHC.RECOVRN ---
Pt still ambivalent in regards to MATTY. Wants to discuss with her mother first either today, or tomorrow. Pt reports feeling much improved but depression and SI persists. 1:1 pt observer remains at bedside
--- NOTE | 2025-09-18 15:39 | MHC.SHP ---
Pre-Procedural Eval Section A - 24 Hr Update-Section A only Date of Service: 09/18/25 The patient is an INPATIENT: Yes Changes since office visit: Yes New Medical Problems, Yes Changes in Medication and Yes Patient answered all questions; No Cold of Flu in the past 2 weeks The patient has been examined within 24 hours of the surgical procedure. The History & Physical has been completed within 30 days and I have reviewed it.: Yes Section B - Complete if H&P > 30 days Chief Complaint: Acute Alcoholic Pancreatitis Allergies: Allergies Allergy/AdvReac Type Severity Reaction Status Date / Time No Known Allergies Allergy Verified 09/13/25 13:31 Plan Diagnosis/Plan: Unchanged I have reviewed the history and physical and performed a pertinent physical examination on my patient. No changes have occurred unless specified. Time Spent With Patient Time: Total time managing care of this patient today ____ minutes.
--- NOTE | 2025-09-18 15:47 | W.PM.OPN ---
Operative Note Operative Note Date of Service: 09/18/25 Narrative: FLEXIBLE TRANSORAL UPPER GASTROINTESTINAL ENDOSCOPY WITH BIOPSIES Pre-op diagnosis: Pancreatitis complicated by splenic vein thrombosis - EGD to rule out gastric varices Post-op diagnosis: Gastritis, duodenitis Endoscopist:? Dwight Trevino MD Anesthesia:?MAC UPPER ENDOSCOPY Consent: Indications for the procedure and potential complications of bleeding, perforation, reaction to medications and missed diagnosis were discussed with the patient and informed consent was obtained. Instrument: Olympus GIF H 190 mid size upper endoscope Monitoring: Vital signs and clinical assessment, continuous EKG monitoring, Pulse oximetry, Carbon Dioxide monitoring and blood pressure monitoring were done throughout the procedure. Procedure: The patient was placed in the left lateral decubitis position and pre-procedure medications were administered and a bite block was placed. The endoscope was inserted into the mouth and advanced under direct vision to the third part of duodenum. A careful inspection was made as the upper endoscope was withdrawn including a retroflexed examination of the proximal stomach; Findings and interventions are described below. Findings: Larynx: Normal Esophagus: GE junction at 35 cms. No esophagitis or Shen's Stomach: Mild gastric antral erythema - biopsies were obtained to check for Helicobacter pylori.. No gastric varices and Grade 1 flap valve on retroflexed examination of the cardia. Duodenum: Edematous folds with patchy erythema in the bulb (biopsied) and normal descending duodenum Intervention: Biopsies as noted above Impression and Post Procedure Diagnosis: Endoscopy Findings: ESOPHAGUS: Normal STOMACH: Mild antral gastritis DUODENUM: Duodenitis with edematous folds in the bulb - likely due to underlying pancreatitis. Plan: Ok to resume a regular diet Heme-Onc consult to evaluate pt for possible anti-coagulation for SVT Above findings were reviewed with the patient
[2025-09-18] MEDS: Albumin Human 25 % 100 ML IV ×2 (16:47→23:00)
[2025-09-18] MEDS: oxyCODONE HCl Immed Release 5 MG TABLET PO (16:51)
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
--- NOTE | 2025-09-18 19:58 | PC.NURSE ---
Addendum entered by Juani Vu RN 09/18/25 20:15: This RN spent about 25 minutes speaking on phone with mom per patient request to update her mother about care plan and goals, mom more so concerned about eating disorder than anything else, fears her going to our inpt psych unit will hinder her chances in getting into a program more focused on eating disorders. Explained having to get through the SI issue first before focusing on eating disorder, will touch base with case aide and care team in AM to establish a plan of action. Emery Wheel Worker made aware of event. Original Note: Assumed care of this patient 19:00 hour. On safe start/ initial interaction with patient with off-going RN Juani present with this aligner typewriter, this patient was visibly agitated, verbalized her upset about the dilaudid being discontinued after her EGD earlier today. Pt stated to RNs, They are just trying to get me off of it so they can ship me off to the psych floor . Pt was also making active SI statement and verbal threats about leaving during this interaction and acknowledged but that is why I have her in the room (pointed to 1:1 sitter seated door side of room for SI precautions). Pt made threats to leave, stated that's the beautiful thing about being me. I can just leave when I want to . PRN offered patient prn atarax as well as offered to contact provider for additional oxycodone dose in an attempt to establish plan of care with patient. Pt educated on inability to leave AMA due to SI threats and awaiting care team consult. Pt became more agitated, requested a different nurse. Continues with 1:1 sitter at bedside. Report given to CAROL ANN Spivey who assumed care of this patient. See safe-start
[2025-09-19] MEDS: oxyCODONE HCl Immed Release 5 MG TABLET PO ×2 (01:13→08:49)
[2025-09-19] MEDS: 0.9 % Sodium Chloride Flush 3 ML SYRINGE IVFLUSH ×2 (01:17→22:51)
[2025-09-19 03:14] VITALS: BP 100/60; PULSE 61; RESP 18; TEMP 37.2; O2SAT 96
[2025-09-19 06:00] VITALS: BMI 22.1
[2025-09-19 07:31] VITALS: BP 120/78; PULSE 60; RESP 16; TEMP 36.5; O2SAT 100
[2025-09-19] MEDS: Thiamine HCL 100 MG in 0.9 % Sodium Chloride 100 ML 202 MG IV (08:49)
[2025-09-19] MEDS: PHENobarbital 15 MG TABLET PO (08:49)
[2025-09-19] MEDS: Nicotine 21 MG PATCH.TD24 TRANSDERMA (08:50)
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
[2025-09-19 11:12] VITALS: BP 122/71; PULSE 64; RESP 64; TEMP 36.6; O2SAT 99
--- NOTE | 2025-09-19 13:53 | MHC.CM.PN ---
CM met with Patient and her Mother/Kizzy at bedside([phone]).Patient and family are hoping when Patient is medically cleared that she can dc to [facility] for IPLOC. CM has reached out to Care Team(Malinda) to see is she is available to meet with Patient/family or call them. CM awaits a response from Care Team.
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
[2025-09-19 15:26] VITALS: BP 127/83; PULSE 70; RESP 16; TEMP 36.8; O2SAT 99
[2025-09-19 19:16] VITALS: BP 92/54; PULSE 55; RESP 19; TEMP 36.7; O2SAT 97
[2025-09-19 23:14] VITALS: BP 100/58; PULSE 53; RESP 18; TEMP 36.8; O2SAT 93
[2025-09-20] VITALS (7 sets, daily range): BP systolic 101–160; BP diastolic 56–96; PULSE 56–109; RESP 18–93; TEMP 36.1–37.2; O2SAT 94–100; BMI 24.5
[2025-09-20] MEDS: Thiamine HCL 100 MG in 0.9 % Sodium Chloride 100 ML 202 MG IV (08:09)
[2025-09-20] MEDS: Nicotine 21 MG PATCH.TD24 TRANSDERMA (08:09)
--- NOTE | 2025-09-20 10:34 | MHC.CM.PN ---
Per [facility], Patient is not yet medically cleared for dc today(advancing diet).
--- NOTE | 2025-09-20 11:53 | MHC.CLN ---
F/U DIET ADVANCED TO REGULAR TODAY PT WITH POOR PO INTAKE DISTANCE LEARNING COORDINATOR-EXPECT PO INTAKE TO REMAIN LOW SECONDARY TO ACUTE PANCREATITIS MONITOR PO INTAKE STRICTLY WT NOTED 58.9KG
--- NOTE | 2025-09-20 12:20 | P.PNIM_ITS ---
Subjective Subjective Date of Service: 09/20/25 Interval History: difficulty with solids yesterday, ready to try again today Physical Exam 2 Exam: Exam: Appearance: Alert.? Oriented X3.? cvs: rrr, [id number]. res: clear to auscultation ,no rhonchii or wheezing abd: no rebound or guarding ,abd pain imrpoving, bs present. ext pulses present , no cyanosis . neuro: axo3 , nonfocal. Vital Signs: Vital Signs: Last Vital Signs Temp 97.9 F 09/20/25 11:38 Pulse 56 09/20/25 11:38 Resp 18 09/20/25 11:38 BP 103/65 09/20/25 11:38 Pulse Ox 97 09/20/25 11:38 O2 Del Method Room Air 09/20/25 11:38 BMI result Body Mass Index 24.5 Objective Data Active Medications Acetaminophen (Acetaminophen 325 Mg Tablet) 650 mg PO Q6H PRN PRN Reason: Pain, Mild 1-3,fever,headache Last Admin: 09/19/25 01:12 Dose: 650 mg Documented By: NEHA Albuterol/Ipratropium (Albuterol/Iprat 2.5/0.5mg 3 Ml Ampul.Neb) 3 ml INHALE Q4H PRN PRN Reason: Shortness of Breath/Wheezing Calcium Carbonate (Calcium Carbonate 750 Mg Tab.Chew) 750 mg PO Q4H PRN PRN Reason: Heartburn Enoxaparin Sodium (Enoxaparin Sodium 40 Mg/0.4 Ml Syringe) 40 mg SUBCUT Q24H [facility] Last Admin: 09/19/25 22:43 Dose: 40 mg Documented By: YANDEL Hydromorphone HCl (Hydromorphone Hcl 1 Mg/Ml Syringe) 0.5 mg IVPUSH Q4H PRN; Protocol PRN Reason: Pain, Severe (Pain Scale 7-10) Last Admin: 09/20/25 08:09 Dose: 0.5 mg Documented By: HODA Hydroxyzine HCl (Hydroxyzine Hcl 50 Mg Tablet) 50 mg PO Q8H PRN PRN Reason: Anxiety Last Admin: 09/20/25 03:32 Dose: 50 mg Documented By: YANDEL Thiamine HCl 100 mg/ Sodium (Chloride) 101 mls @ 202 mls/hr IV DAILY [facility] Last Infusion: 09/20/25 09:01 Dose: Infused Documented By: HODA Folic Acid 1 mg/ Sodium (Chloride) 50.2 mls @ 100.4 mls/hr IV DAILY [facility] Last Infusion: 09/20/25 10:38 Dose: Infused Documented By: HODA Sodium Chloride (Ns) 1,000 mls @ 100 mls/hr IVCONT .Q10H [facility] Last Admin: 09/20/25 08:08 Dose: 100 mls/hr Documented By: HODA Magnesium Hydroxide (Milk Of Magnesia 30 Ml Oral.Susp) 30 ml PO DAILY PRN PRN Reason: Constipation Melatonin (Melatonin 3 Mg Tablet) 6 mg PO BEDTIME PRN PRN Reason: Insomnia Naloxone HCl (Naloxone Hcl 0.4 Mg/Ml Vial) 0.04 mg IVPUSH Q5M PRN PRN Reason: Excessive sedation or RR < 8 Nicotine (Nicotine 21 Mg Patch.Td24) 21 mg TRANSDERMA DAILY [facility] Last Admin: 09/20/25 08:09 Dose: 21 mg Documented By: HODA Nicotine Polacrilex (Nicotine Polacrilex 2 Mg Gum) 4 mg BUCCAL Q1H PRN PRN Reason: Nicotine Cravings Last Admin: 09/20/25 08:09 Dose: 4 mg Documented By: HODA Ondansetron HCl (Ondansetron Hcl 4 Mg/2 Ml Vial) 4 mg IVPUSH Q8H PRN PRN Reason: Nausea and Vomiting Last Admin: 09/14/25 08:22 Dose: 4 mg Documented By: TAMERA Oxycodone HCl (Oxycodone Hcl Immed Release 5 Mg Tablet) 5 mg PO Q8H PRN PRN Reason: Pain, Moderate(Pain Scale 4-6) Last Admin: 09/19/25 08:49 Dose: 5 mg Documented By: HODA Pantoprazole Sodium (Pantoprazole Sodium 40 Mg/10 Ml Vial) 40 mg IVPUSH BID@0630,1630 [facility] Last Admin: 09/20/25 06:03 Dose: 40 mg Documented By: YANDEL Pharmacy Consult (Consult Rx Etoh Phenob Im/Po) 1 each MISCELLANE ONCE PRN; Protocol PRN Reason: Consult order Polyethylene Glycol (Polyethylene Glycol 3350 17 Gm Powd.Pack) 17 gm PO DAILY PRN PRN Reason: Constipation Last Admin: 09/16/25 21:15 Dose: 17 gm Documented By: JESICA Sertraline HCl (Sertraline Hcl 100 Mg Tablet) 100 mg PO DAILY [facility] Last Admin: 09/20/25 08:08 Dose: 100 mg Documented By: HODA Sertraline HCl (Sertraline Hcl 50 Mg Tablet) 50 mg PO DAILY [facility] Last Admin: 09/20/25 08:08 Dose: 50 mg Documented By: HODA Sodium Chloride (0.9 % Sodium Chloride Flush 3 Ml Syringe) 3 ml IVFLUSH QSHIFT [facility] Last Admin: 09/20/25 08:18 Dose: Not Given Documented By: HODA Non-Admin Reason: IV Running Labs 09/14/25 03:38 09/14/25 03:37 Assessment and Plan (1) Suicidal behavior: Status: Acute Plan 25F PMH depression, eating disorder, polysubstance dependence presented with abdominal pain and suicide ideation Acute alcoholic pancreas with necrosis and nonobstructed splenic thrombosis Continue symptomatic management, advancing to solids, still requiring IV pain meds Repeat MRI in 4 weeks Alcohol dependence No signs of withdrawal, continue vitamin supplementation Mood disorder with suicide ideation Likely to require inpatient psychiatry after medically cleared Alcoholic steatohepatitis Abstinence encouraged DVT prophylaxis with Lovenox Full code reason for continued hospitalization: Awaiting tolerance of solids Quality Stroke Does the patient have a stroke diagnosis?: No Reason for No Anti-thrombotic by Day Two: N/A - Med Ordered VTE Prior VTE?: No VTE Risk Level:: Medical - moderate - high VTE Device Contraindication: N/A - Device Ordered VTE Drug Contraindication: N/A - Med Ordered
[2025-09-21] VITALS (8 sets, daily range): BP systolic 108–135; BP diastolic 63–78; PULSE 56–95; RESP 14–18; TEMP 36–37.1; O2SAT 94–100; BMI 24.5
[2025-09-21 07:22] LABS: Hematocrit 31.2 % (37.0-47.0); Hemoglobin 10.7 g/dl (12.0-16.0); Mean Corpuscular HGB Conc 34.3 g/dl (31.0-35.0); Mean Corpuscular Hemoglobin 37.5 pg (27.0-33.0); Mean Corpuscular Volume 109.5 fL (80.0-98.0); NRBC Abs Auto 0.000 X10*3/uL (0.0-0.012); NRBC Pct Auto 0.0 /100WBC (0.0-0.2); Platelet Count 205 X10*3/uL (160-400); Red Blood Count 2.85 X10*6/uL (4.20-5.50); White Blood Count 3.7 X10*3/uL (4.8-10.8)
[2025-09-21 07:44] LABS: Alanine Aminotransferase 22 U/L (0-31); Albumin Level 2.7 g/dL (3.5-5.0); Alkaline Phosphatase 83 U/L (39-117); Anion Gap 9 (12-20); Aspartate Amino Transferase 42 U/L (5-31); Blood Urea Nitrogen < 3 mg/dL (9-16); Calcium 8.0 mg/dL (8.4-10.2); Carbon Dioxide 26 mmol/L (22-29); Chloride 108 mmol/L (96-108); Creatinine Clr Calc Pharmacy 178.7; Estimated Glomerular Filt Rate > 60; Magnesium 1.8 mg/dL (1.6-2.6); Potassium 3.3 mmol/L (3.3-5.1); Sodium 140 mmol/L (135-145); Total Protein 4.7 g/dL (6.5-8.0)
[2025-09-21] MEDS: Nicotine 21 MG PATCH.TD24 TRANSDERMA (07:59)
[2025-09-21] MEDS: 0.9 % Sodium Chloride Flush 3 ML SYRINGE IVFLUSH ×2 (08:08→23:05)
--- NOTE | 2025-09-21 11:06 | P.PNIM_ITS ---
Subjective Subjective Date of Service: 09/21/25 Interval History: still with pain and nausea Physical Exam 2 Exam: Exam: Appearance: Alert.? Oriented X3.? cvs: rrr, [id number]. res: clear to auscultation ,no rhonchii or wheezing abd: no rebound or guarding ,abd pain imrpoving, bs present. ext pulses present , no cyanosis . neuro: axo3 , nonfocal. Vital Signs: Vital Signs: Last Vital Signs Temp 98.6 F 09/21/25 07:17 Pulse 85 09/21/25 07:17 Resp 18 09/21/25 07:17 BP 110/63 09/21/25 07:17 Pulse Ox 99 09/21/25 07:17 O2 Del Method Room Air 09/21/25 07:17 BMI result Body Mass Index 24.5 Objective Data Active Medications Acetaminophen (Acetaminophen 325 Mg Tablet) 650 mg PO Q6H PRN PRN Reason: Pain, Mild 1-3,fever,headache Last Admin: 09/19/25 01:12 Dose: 650 mg Documented By: NEHA Calcium Carbonate (Calcium Carbonate 750 Mg Tab.Chew) 750 mg PO Q4H PRN PRN Reason: Heartburn Enoxaparin Sodium (Enoxaparin Sodium 40 Mg/0.4 Ml Syringe) 40 mg SUBCUT Q24H [facility] Last Admin: 09/20/25 22:39 Dose: 40 mg Documented By: JESICA Folic Acid (Folic Acid 1 Mg Tablet) 1 mg PO DAILY [facility] Hydromorphone HCl (Hydromorphone Hcl 2 Mg Tablet) 1.5 mg PO Q4H PRN PRN Reason: Pain, Severe (Pain Scale 7-10) Hydroxyzine HCl (Hydroxyzine Hcl 50 Mg Tablet) 50 mg PO Q8H PRN PRN Reason: Anxiety Last Admin: 09/21/25 03:06 Dose: 50 mg Documented By: JESICA Magnesium Hydroxide (Milk Of Magnesia 30 Ml Oral.Susp) 30 ml PO DAILY PRN PRN Reason: Constipation Melatonin (Melatonin 3 Mg Tablet) 6 mg PO BEDTIME PRN PRN Reason: Insomnia Naloxone HCl (Naloxone Hcl 0.4 Mg/Ml Vial) 0.04 mg IVPUSH Q5M PRN PRN Reason: Excessive sedation or RR < 8 Nicotine (Nicotine 21 Mg Patch.Td24) 21 mg TRANSDERMA DAILY [facility] Last Admin: 09/21/25 07:59 Dose: 21 mg Documented By: ASHLI Nicotine Polacrilex (Nicotine Polacrilex 2 Mg Gum) 4 mg BUCCAL Q1H PRN PRN Reason: Nicotine Cravings Last Admin: 09/21/25 03:06 Dose: 4 mg Documented By: JESICA Ondansetron HCl (Ondansetron Hcl 4 Mg/2 Ml Vial) 4 mg IVPUSH Q8H PRN PRN Reason: Nausea and Vomiting Last Admin: 09/14/25 08:22 Dose: 4 mg Documented By: TAMERA Pantoprazole Sodium (Pantoprazole Sodium 40 Mg/10 Ml Vial) 40 mg IVPUSH BID@0630,1630 [facility] Last Admin: 09/21/25 06:23 Dose: 40 mg Documented By: JESICA Pharmacy Consult (Consult Rx Etoh Phenob Im/Po) 1 each MISCELLANE ONCE PRN; Protocol PRN Reason: Consult order Polyethylene Glycol (Polyethylene Glycol 3350 17 Gm Powd.Pack) 17 gm PO DAILY PRN PRN Reason: Constipation Last Admin: 09/16/25 21:15 Dose: 17 gm Documented By: JESICA Sertraline HCl (Sertraline Hcl 100 Mg Tablet) 100 mg PO DAILY [facility] Last Admin: 09/21/25 08:03 Dose: 100 mg Documented By: ASHLI Sertraline HCl (Sertraline Hcl 50 Mg Tablet) 50 mg PO DAILY [facility] Last Admin: 09/21/25 08:03 Dose: 50 mg Documented By: ASHLI Sodium Chloride (0.9 % Sodium Chloride Flush 3 Ml Syringe) 3 ml IVFLUSH QSHIFT [facility] Last Admin: 09/21/25 08:08 Dose: 3 ml Documented By: ASHLI Thiamine HCl (Thiamine Hcl 100 Mg Tablet) 100 mg PO DAILY [facility] Labs 09/21/25 06:53 09/21/25 06:53 Labs: Laboratory Results - last 24 hr 09/21/25 06:53 MCV 109.5 H MCH 37.5 H MCHC 34.3 RDW 14.8 Plt Count 205 D MPV 10.9 Absolute Nucleated RBC 0.000 Nucleated RBC % (auto) 0.0 Anion Gap 9 L Estim Creat Clear Calc 178.7 Estimated GFR > 60 Random Glucose 108 Calcium 8.0 L Magnesium 1.8 Total Bilirubin 0.2 Direct Bilirubin < 0.2 AST 42 H ALT 22 Alkaline Phosphatase 83 Total Protein 4.7 L Albumin 2.7 L Assessment and Plan (1) Suicidal behavior: Status: Acute Plan 25F PMH depression, eating disorder, polysubstance dependence presented with abdominal pain and suicide ideation Acute alcoholic pancreas with necrosis and nonobstructed splenic thrombosis Continue symptomatic management, advanced to solids, change to po dilaudid Repeat MRI in 4 weeks Alcohol dependence No signs of withdrawal, continue vitamin supplementation Mood disorder with suicide ideation Likely to require inpatient psychiatry after medically cleared Alcoholic steatohepatitis Abstinence encouraged DVT prophylaxis with Lovenox Full code reason for continued hospitalization: Awaiting tolerance of solids Quality Stroke Does the patient have a stroke diagnosis?: No Reason for No Anti-thrombotic by Day Two: N/A - Med Ordered VTE Prior VTE?: No VTE Risk Level:: Medical - moderate - high VTE Device Contraindication: N/A - Device Ordered VTE Drug Contraindication: N/A - Med Ordered
--- NOTE | 2025-09-21 17:30 | PC.NURSE ---
1750: Pt transferred from [facility], this RN assumed care at 1730, AOx4, calm and cooperative, patient denies SI or HI states at this time, mother at bedside & sitter for safety purposes. LSC, BSx4 some slight tenderness with palpation, reports appetite starting to improve slowly, abd pain tolerable at this time d/t pain meds given upstairs. 1840: Pt requested tylenol for 8/10 headache and PRN atarax, immediately after pt vomited d/t medication. No prior reports of Nausea, Dr. Junior made aware, new order translingual zofran placed.
--- NOTE | 2025-09-22 00:58 | PC.NURSE ---
0058: Zofran with good effect, no reports of pain/nausea or vomiting at this time. Pt is able to sleep comfortable at this time, Sitter at bedside, Will continue to monitor.
[2025-09-22 03:25] VITALS: BP 108/69; PULSE 59; RESP 14; TEMP 36; O2SAT 97
[2025-09-22 06:00] VITALS: BMI 23.1
[2025-09-22 06:49] LABS: Hematocrit 35.4 % (37.0-47.0); Hemoglobin 12.1 g/dl (12.0-16.0); Mean Corpuscular HGB Conc 34.2 g/dl (31.0-35.0); Mean Corpuscular Hemoglobin 37.5 pg (27.0-33.0); Mean Corpuscular Volume 109.6 fL (80.0-98.0); NRBC Abs Auto 0.000 X10*3/uL (0.0-0.012); NRBC Pct Auto 0.0 /100WBC (0.0-0.2); Platelet Count 234 X10*3/uL (160-400); Red Blood Count 3.23 X10*6/uL (4.20-5.50); White Blood Count 4.4 X10*3/uL (4.8-10.8)
[2025-09-22 06:59] VITALS: BP 124/69; PULSE 85; RESP 16; TEMP 36.6; O2SAT 99
[2025-09-22 07:13] LABS: Alanine Aminotransferase 22 U/L (0-31); Albumin Level 3.1 g/dL (3.5-5.0); Alkaline Phosphatase 86 U/L (39-117); Aspartate Amino Transferase 42 U/L (5-31); Blood Urea Nitrogen 3 mg/dL (9-16); Creatinine Clr Calc Pharmacy 145.4; Estimated Glomerular Filt Rate > 60; Magnesium 2.2 mg/dL (1.6-2.6); Total Protein 5.4 g/dL (6.5-8.0)
[2025-09-22 07:24] LABS: Anion Gap 10 (12-20); Calcium 8.9 mg/dL (8.4-10.2); Carbon Dioxide 28 mmol/L (22-29); Chloride 105 mmol/L (96-108); Potassium 4.3 mmol/L (3.3-5.1); Sodium 139 mmol/L (135-145)
[2025-09-22] MEDS: Nicotine 21 MG PATCH.TD24 TRANSDERMA (07:58)
[2025-09-22] MEDS: Nicotine Polacrilex Lozenge 2 MG LOZENGE BUCCAL ×5 (09:10→21:57)
--- NOTE | 2025-09-22 09:21 | HO.PM.IMPN ---
Subjective Subjective Date of Service: 09/22/25 Interval History: feeling better Physical Exam Exam: Exam: Appearance: Alert.? Oriented X3.? cvs: rrr, [id number]. res: clear to auscultation ,no rhonchii or wheezing abd: no rebound or guarding ,abd pain imrpoving, bs present. ext pulses present , no cyanosis . neuro: axo3 , nonfocal. Vital Signs: Vital Signs: Last Vital Signs Temp 98 F 09/22/25 06:59 Pulse 85 09/22/25 06:59 Resp 16 09/22/25 06:59 BP 124/69 09/22/25 06:59 Pulse Ox 99 09/22/25 06:59 O2 Del Method Room Air 09/22/25 06:59 BMI result Body Mass Index 23.1 Objective Data Active Medications Acetaminophen (Acetaminophen 325 Mg Tablet) 650 mg PO Q6H PRN PRN Reason: Pain, Mild 1-3,fever,headache Last Admin: 09/21/25 18:31 Dose: 650 mg Documented By: JÚNIOR Calcium Carbonate (Calcium Carbonate 750 Mg Tab.Chew) 750 mg PO Q4H PRN PRN Reason: Heartburn Enoxaparin Sodium (Enoxaparin Sodium 40 Mg/0.4 Ml Syringe) 40 mg SUBCUT Q24H [facility] Last Admin: 09/21/25 23:04 Dose: 40 mg Documented By: JÚNIOR Folic Acid (Folic Acid 1 Mg Tablet) 1 mg PO DAILY [facility] Last Admin: 09/22/25 07:57 Dose: 1 mg Documented By: PEBBLES Hydromorphone HCl (Hydromorphone Hcl 2 Mg Tablet) 1.5 mg PO Q4H PRN PRN Reason: Pain, Severe (Pain Scale 7-10) Last Admin: 09/22/25 05:22 Dose: 1.5 mg Documented By: JÚNIOR Hydroxyzine HCl (Hydroxyzine Hcl 50 Mg Tablet) 50 mg PO Q8H PRN PRN Reason: Anxiety Last Admin: 09/21/25 18:34 Dose: 50 mg Documented By: JÚNIOR Magnesium Hydroxide (Milk Of Magnesia 30 Ml Oral.Susp) 30 ml PO DAILY PRN PRN Reason: Constipation Melatonin (Melatonin 3 Mg Tablet) 6 mg PO BEDTIME PRN PRN Reason: Insomnia Naloxone HCl (Naloxone Hcl 0.4 Mg/Ml Vial) 0.04 mg IVPUSH Q5M PRN PRN Reason: Excessive sedation or RR < 8 Nicotine (Nicotine 21 Mg Patch.Td24) 21 mg TRANSDERMA DAILY [facility] Last Admin: 09/22/25 07:58 Dose: 21 mg Documented By: PEBBLES Nicotine Polacrilex (Nicotine Polacrilex 2 Mg Gum) 4 mg BUCCAL Q1H PRN PRN Reason: Nicotine Cravings Last Admin: 09/22/25 05:40 Dose: 4 mg Documented By: JÚNIOR Nicotine Polacrilex (Nicotine Polacrilex Lozenge 2 Mg Lozenge) 2 mg BUCCAL Q1H PRN PRN Reason: Nicotine Cravings Last Admin: 09/22/25 09:10 Dose: 2 mg Documented By: PEBBLES Omeprazole (Omeprazole 20 Mg Capsule.Dr) 20 mg PO DAILY@0630 [facility] Last Admin: 09/22/25 05:39 Dose: 20 mg Documented By: JÚNIOR Ondansetron HCl (Ondansetron Odt 4 Mg Tab.Rapdis) 4 mg TRANSLINGU Q6H PRN PRN Reason: Nausea and Vomiting Last Admin: 09/21/25 19:01 Dose: 4 mg Documented By: JÚNIOR Pharmacy Consult (Consult Rx Etoh Phenob Im/Po) 1 each MISCELLANE ONCE PRN; Protocol PRN Reason: Consult order Polyethylene Glycol (Polyethylene Glycol 3350 17 Gm Powd.Pack) 17 gm PO DAILY PRN PRN Reason: Constipation Last Admin: 09/16/25 21:15 Dose: 17 gm Documented By: JESICA Sertraline HCl (Sertraline Hcl 100 Mg Tablet) 100 mg PO DAILY [facility] Last Admin: 09/22/25 07:58 Dose: 100 mg Documented By: PEBBLES Sertraline HCl (Sertraline Hcl 50 Mg Tablet) 50 mg PO DAILY [facility] Last Admin: 09/22/25 07:58 Dose: 50 mg Documented By: PEBBLES Sodium Chloride (0.9 % Sodium Chloride Flush 3 Ml Syringe) 3 ml IVFLUSH QSHIFT [facility] Last Admin: 09/22/25 08:12 Dose: Not Given Documented By: PEBBLES Non-Admin Reason: No Access Thiamine HCl (Thiamine Hcl 100 Mg Tablet) 100 mg PO DAILY [facility] Last Admin: 09/22/25 07:58 Dose: 100 mg Documented By: PEBBLES Labs 09/22/25 06:19 09/22/25 06:19 Labs: Laboratory Results - last 24 hr 09/22/25 06:19 MCV 109.6 H MCH 37.5 H MCHC 34.2 RDW 15.2 Plt Count 234 MPV 10.9 Absolute Nucleated RBC 0.000 Nucleated RBC % (auto) 0.0 Anion Gap 10 L Estim Creat Clear Calc 145.4 Estimated GFR > 60 Random Glucose 97 Calcium 8.9 D Phosphorus 4.1 Magnesium 2.2 Total Bilirubin 0.3 Direct Bilirubin 0.2 AST 42 H ALT 22 Alkaline Phosphatase 86 Total Protein 5.4 L Albumin 3.1 L Assessment and Plan (1) Suicidal behavior: Status: Acute Plan 25F PMH depression, eating disorder, polysubstance dependence presented with abdominal pain and suicide ideation Acute alcoholic pancreas with necrosis and nonobstructed splenic thrombosis Continue symptomatic management, tolerating solids, changed to po dilaudid Repeat MRI in 4 weeks Alcohol dependence No signs of withdrawal, continue vitamin supplementation Mood disorder with suicide ideation care team appreciated, no longer needs 1:1, referal going out for eating disorder facility Alcoholic steatohepatitis Abstinence encouraged DVT prophylaxis with Lovenox Full code reason for continued hospitalization: safe dispo planning Quality Stroke Does the patient have a stroke diagnosis?: No Reason for No Anti-thrombotic by Day Two: N/A - Med Ordered VTE Prior VTE?: No VTE Risk Level:: Medical - moderate - high VTE Device Contraindication: N/A - Device Ordered VTE Drug Contraindication: N/A - Med Ordered
--- NOTE | 2025-09-22 10:56 | MHC.CARE ---
T/W met with Pt this am. A medical evaluation form was signed by the hospitalist and faxed to [facility]. Pt has an intake for their residential program at 11am.
--- NOTE | 2025-09-22 14:15 | MHC.CLN ---
F/U DIET RX: REGULAR. 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 REFERRAL PLACED TO [facility]. MONITOR PO INTAKE.
[2025-09-22 15:20] VITALS: BP 114/76; PULSE 79; RESP 18; TEMP 36.6; O2SAT 98
--- NOTE | 2025-09-22 16:25 | MHC.CM.PN ---
PT EXPECTED TO DC TOMORROW HOME VS INPT PROGRAM CARE TEAM ASSISTING WITH REFERRALS TO [facility] IF A BED IS NOT SECURED, PT WILL DC HOME AND FOLLOW UP FROM THERE
[2025-09-22 19:30] VITALS: BP 109/78; PULSE 79; RESP 18; TEMP 36.6; O2SAT 99
[2025-09-23 03:19] VITALS: BP 105/56; PULSE 60; RESP 16; TEMP 36.3; O2SAT 98
[2025-09-23 06:00] VITALS: BMI 22.2
[2025-09-23 06:57] VITALS: BP 105/54; PULSE 58; RESP 15; TEMP 36.6; O2SAT 97
--- NOTE | 2025-09-23 07:43 | PC.NURSE ---
Pt has no IV access - Pt medically cleared so no access ok per
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
[2025-09-23] MEDS: Nicotine 21 MG PATCH.TD24 TRANSDERMA (09:27)
--- NOTE | 2025-09-23 12:42 | MHC.CM.PN ---
PT TO DC HOME TODAY VIA PRIVATE TRANSPORT WITH A PLAN TO F/U WITH REFERRALS SENT BY CARE TEAM
== END 2025-09-23 12:39 | disposition home or self-care (01) | DRG 282 ==
LOC: HO.ED 14:24 → HO.EDOVER 20:08 → HO.IMC 09-14 14:48 → HO.S3 09-21 17:06
PROVIDERS: Internal Medicine Gastroenterology; Nurse Practitioner Family; Physician Assistant Medical; Social Worker; Admitting Provider Internal Medicine; Emergency Provider Emergency Medicine; PCP Nurse Practitioner Family; Visit Provider Internal Medicine
PROC: 0DJ08ZZ Inspection of Upper Intestinal Tract, Via Natural or Artificial Opening Endoscopic (ICD-10-PCS; CPT 43235; principal; 2025-09-18 15:10)
DX: K85.21 Alcohol induced acute pancreatitis with uninfected necrosis (principal); I82.890 Acute embolism and thrombosis of other specified veins; F33.2 Major depressive disorder, recurrent severe without psychotic features; F50.029 Anorexia nervosa, binge eating/purging type, unspecified; R45.851 Suicidal ideations; K76.0 Fatty (change of) liver, not elsewhere classified; F10.20 Alcohol dependence, uncomplicated; K29.90 Gastroduodenitis, unspecified, without bleeding; Z68.1 Body mass index [BMI] 19.9 or less, adult; F14.90 Cocaine use, unspecified, uncomplicated; F17.210 Nicotine dependence, cigarettes, uncomplicated; Z71.6 Tobacco abuse counseling; Z79.899 Other long term (current) drug therapy
CPT/HCPCS: 36415; 74177; 80048; 80053; 80076; 80143; 80179; 80307; 81001; 81003; 81025; 82607; 82746; 83605; 83690; 83735; 84100; 85025; 85027; 87040; 88305; 88342; 93005; 99285; J1171; J1650; J1808; J2003; J2270; J2405; J2470; J2543; J2560; J2704; J3411; J7120; P9047; Q9967; S9485

== ENCOUNTER → 2025-09-13 13:31 | Outpatient (BNV) | payer OTHER, SELFPAY | PROVIDERS: Admitting Provider Internal Medicine; Emergency Provider Emergency Medicine; Visit Provider Internal Medicine Cardiovascular Disease | DX: R94.31 Abnormal electrocardiogram [ECG] [EKG] (principal); R07.9 Chest pain, unspecified | CPT/HCPCS: 93010 ==

== ENCOUNTER → 2025-09-13 14:22 | Outpatient (BNV) | payer OTHER, SELFPAY | PROVIDERS: Emergency Provider Emergency Medicine; Visit Provider Radiology Diagnostic Radiology | DX: K85.90 Acute pancreatitis without necrosis or infection, unspecified (principal); K86.2 Cyst of pancreas | CPT/HCPCS: 74177 ==

== ENCOUNTER → 2025-09-13 19:40 | Outpatient (BNV) | payer OTHER, SELFPAY | PROVIDERS: Admitting Provider Internal Medicine; Emergency Provider Emergency Medicine; Visit Provider Social Worker | DX: F10.20 Alcohol dependence, uncomplicated (principal) | CPT/HCPCS: 99222; 99232 ==

== ENCOUNTER → 2025-09-13 19:40 | Outpatient (BNV) | payer OTHER, SELFPAY | PROVIDERS: Admitting Provider Internal Medicine; Emergency Provider Emergency Medicine; Visit Provider Nurse Practitioner Family | DX: K85.22 Alcohol induced acute pancreatitis with infected necrosis (principal); I82.890 Acute embolism and thrombosis of other specified veins; F14.90 Cocaine use, unspecified, uncomplicated; F10.10 Alcohol abuse, uncomplicated; T14.91XA Suicide attempt, initial encounter | CPT/HCPCS: 99223; 99232 ==

== ENCOUNTER → 2025-09-13 19:40 | Outpatient (BNV) | payer OTHER, SELFPAY | PROVIDERS: Admitting Provider Internal Medicine; Emergency Provider Emergency Medicine; PCP Nurse Practitioner Family; Visit Provider Internal Medicine | DX: D73.5 Infarction of spleen (principal); K85.90 Acute pancreatitis without necrosis or infection, unspecified | CPT/HCPCS: 99222 ==

== ENCOUNTER → 2025-09-13 19:40 | Outpatient (BNV) | payer OTHER, SELFPAY | PROVIDERS: Admitting Provider Internal Medicine; Emergency Provider Emergency Medicine; PCP Nurse Practitioner Family; Visit Provider Internal Medicine Gastroenterology | DX: K85.22 Alcohol induced acute pancreatitis with infected necrosis (principal); I82.890 Acute embolism and thrombosis of other specified veins; F10.10 Alcohol abuse, uncomplicated; K29.70 Gastritis, unspecified, without bleeding; K29.80 Duodenitis without bleeding | CPT/HCPCS: 43239; 99222 ==